=== PATIENT | female | born 1945 | race Caucasian/White ===

== ENCOUNTER 2017-07-09 05:34 | Inpatient (IN) | payer MEDICARE, OTHER ==
[~2017-07-09] VITALS: Ht 157.5 cm; Wt 55.3 kg
[2017-07-09] MEDS ORDERED: PROTONIX40 M1 PO (07:06)
[2017-07-09] MEDS ORDERED: TIROSINT50 MCG PO (07:07)
[2017-07-09] MEDS ORDERED: MOBIC15 MG PO (07:08)
[2017-07-09] MEDS ORDERED: ULTRAM50 MG PO (07:08)
[2017-07-09] MEDS ORDERED: ESTRACE1 MG PO (07:08)
[2017-07-09] MEDS ORDERED: ZESTRIL40 MG PO (07:10)
[2017-07-09] MEDS ORDERED: METOPROLOL SUCC25 MG PO (07:11)
[2017-07-09] MEDS ORDERED: LEVOTHYROXINE75 MCG PO (10:15)
[2017-07-09] MEDS ORDERED: AMLODIPINE BESYL5 MG PO (10:17)
[2017-07-09] MEDS ORDERED: METOPROLOL TART25 MG PO (10:18)
[2017-07-09] MEDS ORDERED: PANTOPRAZOLE SO40 MG PO (10:19)
--- NOTE | 2017-07-09 10:55 | NUR ---
PATIENT TX TO MEDICAL FLOOR IN A STRETCHER, SHE IS ALERT AND ORIENTED AND STEADY ON HER FEET. PATIENT UP TO THE BATHROOM UPON ARRIVAL AND VOIDED IN THE HAT CLEAR YELLOW URINE. NG TUBE CONNECTED TO LIS AND IV FLUID HUNG AT 125 MLS/HR. PATIENT HAS PAIN CURRENTLY AT 10 WHICH SHE IS COMFTORABLE AT.
[2017-07-09] MEDS ORDERED: VITAMIN B-250 MG PO (10:56)
[2017-07-09] MEDS ORDERED: VITAMIN B-121000 MCG PO (10:57)
[2017-07-09] MEDS ORDERED: ESTRACE42.5 GM VAGINAL (10:58)
--- NOTE | 2017-07-09 10:59 | NUR ---
MED REC COMPLETE WITH BIMART REFILL HISTORY AND PATIENT INTERVIEW.
--- NOTE | 2017-07-09 11:11 | NUR ---
VITALS TAKEN AND PATIENT HOB ELEVATED, SCD'S PLACED ON THE PATIENT AND A NEW IV #20 STARTED IN THE RIGHT FOREARM. FAMILY PRESENT IN THE ROOM
--- NOTE | 2017-07-09 12:17 | NUR ---
PATIENT ASLEEP SITTING UP IN THE BED, FAMILY AT BEDSIDE. NO S/S OF PAIN, NG TUBE REMAINS AT LIS.
--- NOTE | 2017-07-09 12:45 | NUR ---
PT RESTING IN BED- AND DAUGHTER IN VISITING. PT HAS SBO, WITH NG TUBE IN. SHE SAID HELLO, AND I ASKED HOW SHE WAS COPING-SHE SAID THE NG IS NOT TOO BAD. SHE SMILED SHE SAID IT, BUT I CAN TELL THE FAMILY IS CONCERNED. EXTENDED A BLESSING, AND WILL CONTINUE TO FOLLOW NEEDED
--- NOTE | 2017-07-09 13:15 | NUR ---
pt assisted to the BR at this time and was a stand by assist. pt voided 300cc. pt sitting up on the side of the bed. lemon glycerin swabs given.
--- NOTE | 2017-07-09 14:00 | NUR ---
pts vitals taken at this time.
--- NOTE | 2017-07-09 14:25 | NUR ---
PATIENT IS RESTING WITH EYES OPEN, NO C/O PAIN AT THIS TIME. PATIENT IS ALERT AND ORIENTED. SHE HAS NO NEEDS AT THIS TIME.
--- NOTE | 2017-07-09 16:13 | NUR ---
PATIENT VISITING WITH FAMILY, NO C/O PAIN, DENIES NEEDS. BROWN BILE DRAINING FROM NG TUBE AT THIS TIME.
--- NOTE | 2017-07-09 19:05 | NUR ---
ROUNDED CHARGE. PATIENT IS RESTING IN BED. PATIENT HAS NG IN PLACE. PATIENT DENIES ANY COMMENTS, QUESTIONS, OR CONCERNS. PATIENT RATES PAIN AT A 2/10. CALL LIGHT IN REACH.
--- NOTE | 2017-07-09 19:16 | NUR ---
IV FLUIDS CHANGED AND RATE DECREASED TO 85 MLS AN HOUR. DOCTOR AUBREE WAS IN TO SEE THE PATIENT AT THIS TIME. FAMILY WAS PRESENT IN THE ROOM.
--- NOTE | 2017-07-09 19:31 | NUR ---
pt hypertenisve blood pressure 169/56, notified, md to reorder benazapril at home dose.
--- NOTE | 2017-07-09 19:33 | NUR ---
RECIEVED REPORT FROM DAY SHIFT NURSE. PATIENT RESTING IN BED. NGT IN PLACE. ICE CHIPS DELIVERED. PATIENT DENIES NEEDS AT THIS TIME. CALL LIGHT IN REACH.
--- NOTE | 2017-07-09 19:55 | NUR ---
SMALL AMOUNT OF BLOOD NOTED IN NGT. CALLED MD TO NOTIFY. OBTAINED ORDER FOR CEPACOL AND CHLORASEPTIC SPRAY.
--- NOTE | 2017-07-09 20:13 | NUR ---
PT C/O LOWER BACK PAIN. STATES SHE WILL BE GETTING SURGERY SOON ON HER BACK. SHE NORAMLLY TAKES TRAMADOL AT HOME FOR PAIN. ADMINISTERED 2MG OF MORPHINE. PT'S BP ELEVATED. STATES SHE DID NOT RECIEVE HER BP MEDS TODAY. CALLED MD TO OBTAIN ORDER. LUNGS CLEAR, HR REGULAR, TRACE ANKLE EDEMA, BS HYPACTIVE. PT STATES SHE IS NOT PASSING FLATUS. LAST TIME SHE HAD A BM AND PASSED FLATUS WAS THIS MORNING. PT UP WITH ASSISTANCE TO VOID. BACK TO BED. SCDS IN PLACE. CALL LIGHT IN REACH.
--- NOTE | 2017-07-09 22:13 | NUR ---
PT UP TO BATHROOM TO VOID WITH ENVIRONMENTAL HEALTH MANAGER. PT REQUESTING MORE PAIN MEDICATION FOR LOWER BACK.
--- NOTE | 2017-07-09 23:31 | NUR ---
PATIENT SLEEPING. NGT TO LOW INT. SUCTION. IVF INFUSING W/O DIFFICULTY. SCDS IN PLACE. CALL LIGHT IN REACH.
--- NOTE | 2017-07-10 00:26 | NUR ---
PATIENT SLEEPING IN BED. NGT IN PLACE ON LOW INT. SUCTION. SCDS IN PLACE. PT SNORING. CALL LYONS IN REACH.
--- NOTE | 2017-07-10 00:47 | NUR ---
SET UP CONT. PULSE OX. PT'S O2 WHILE SLEEPING AT 92% ON RA. VS OBTAINED. PT DENIES FURTHER NEEDS. CALL LIGHT IN REACH.
--- NOTE | 2017-07-10 01:15 | NUR ---
PT UP TO BATHROOM WITH ASSIST. VOIDED, BACK TO BED. NGT HOOKED UP TO LOW INT. SUCTION. SCDS AND CONT. PULSE OX IN PLACE. IVF INFUSING W/O DIFFICUTLY. PT DENIES PAIN IN ABD. STATES HER PAIN IS ABOUT A 2/10 IN HER BACK AND DENIES THE NEED FOR PAIN MEDICATION AT THIS TIME. LUNGS CLEAR, HR REGULAR, BS ACTIVE. PT STATES SHE IS NOT PASSING FLATUS. CALL LIGHT IN REACH.
--- NOTE | 2017-07-10 02:30 | NUR ---
PT SLEEPING. CONT. PULSE OX IN PLACE. O2 SAT AT 93% ON RA. SCDS IN PLACE. CALL LIGHT IN REACH.
--- NOTE | 2017-07-10 04:07 | NUR ---
PATIENT SLEEPING. NGT IN PLACE. CALL LIGHT IN REACH.
--- NOTE | 2017-07-10 04:31 | NUR ---
ASSISTED PT TO BATHROOM TO VOID. BACK TO BED. PATIENT REQUESTING FOR PAIN MEDICATION FOR HER LOWER BACK. RATES HER PAIN 4/10. PT SITTING AT A DANGLE ON THE SIDE OF THE BED. PT DENIES FURTHER NEEDS. CALL LIGHT IN REACH.
--- NOTE | 2017-07-10 05:28 | NUR ---
PATIENT SLEEPING. CALL LIGHT IN REACH.
--- NOTE | 2017-07-10 05:42 | NUR ---
NGT TO LOW INT. SUCTION. SMALL AMOUNT OF BLOOD IN NG TUBING. NOTIFIED LAST NIGHT. MORPHINE 2MG GIVEN X3 FOR LOWER BACK PAIN. NO PAIN IN ABD. BS ACTIVE, NO FLATUS. LAST BM YESTERDAY. SBA. BP SLIGHTLY ELEVATED LAST NIGHT. PT DID NOT TAKE BP MEDS YESTERDAY.
--- NOTE | 2017-07-10 06:35 | NUR ---
XRAY IN ROOM.
--- NOTE | 2017-07-10 07:57 | NUR ---
PATIENT DID HER AM CARE THIS MORNING. REFUSED HER SHOWER THIS MORNING.
--- NOTE | 2017-07-10 07:57 | NUR ---
discharge planning in room. assessment complete. patient given fresh ice water. active bs. patient reports not passing any flatus at this time. small amount of edema noted in lower legs. scds are on. is at bedside patient able to demenstrate. iv wnl.
--- NOTE | 2017-07-10 09:06 | NUR ---
patient stating pain in lower back /10. would like some pain medication. 2 mg morphine given. patient assist to br. voiding well.
--- NOTE | 2017-07-10 10:53 | NUR ---
patient ambulated three whole laps around the floor. tolerating very well. no sob or abd pain with activity. patient assisted to the br. back to floor for visit. ng hooked back up. pain currently at 10/17. patient reports during walk being able to pass flatus.
--- NOTE | 2017-07-10 12:33 | NUR ---
rounded with dr. zhou in the room. updated on plan of care. possibly getting ng removed depending on x-ray
--- NOTE | 2017-07-10 12:49 | NUR ---
small bowel follow through study being done in room. updated patient on plan of use ng for the gastrographin 50/50
--- NOTE | 2017-07-10 13:49 | NUR ---
PT UP AND WALKING. EVEN WITH AN NG TUBE IN SHE HAS A SMILE. SHE SEEMED TO BE ENJOYING WALKING. WILL CONTINUE TO FOLLOW
--- NOTE | 2017-07-10 14:14 | NUR ---
patient doing well. resting in bed. plan to be back at 1500 for small bowel follow through.
--- NOTE | 2017-07-10 15:03 | HP ---
[facility] [address], [place] [address] Signed ADMISSION DATE: 07/09/2017 REASON FOR ADMISSION: Recurrent bowel obstruction. HISTORY OF PRESENT ILLNESS: A 71-year-old, white woman is from the [facility], in the past four months, has moved to [place]. She is accompanied by her at this time as well as her son and two granddaughters. In the past, she has undergone hysterectomy as well as cholecystectomy. She has been hospitalized at least twice for small bowel obstruction, which appears to have resolved on its own on both occasions. Yesterday, she began having vague abdominal pain mostly in the lower abdomen and by this morning, quite uncomfortable. She presented to the emergency room where she was evaluated by Dr. Stanley Purcell and a plain abdominal x-ray was performed suggestive of small bowel obstruction, followed by a CT scan of the abdomen confirming a bowel obstruction with transition point probably in the deep pelvis. She has been admitted, given fluid resuscitation and so on. PAST MEDICAL HISTORY: Relatively unremarkable. She does not have any serious ongoing chronic medical problems. MEDICATIONS: Review of her medications shows that she does have hypertension, for which she takes amlodipine. Additionally, takes Estrace cream, Estrace orally, and Synthroid as well as lisinopril. She also takes pantoprazole. She does take multiple vitamin supplements as well. She identifies Dr. Christiano Urbano as her primary physician now that she is in [facility]. REVIEW OF SYSTEMS: She denies any shortness of breath or chest pain. She has had no dysphagia or dysuria. Denies any hematemesis or blood per rectum. PHYSICAL EXAMINATION: GENERAL: A pleasant, thin, and petite white woman. She is accompanied by multiple family members as described. HEENT: Nasogastric tube was adjusted as it appeared to be riding high in the nostril. NECK: Trachea is midline. She has no carotid bruit. CHEST: Clear. Electronically Signed By: MEMO MAK MD 07/10/17 1503 PATIENT NAME: JAMES GENTILE HISTORY AND PHYSICAL DATE OF : 43 PHYSICIAN: MEMO MAK MD REPORT #: [id number] REPORT IS CONFIDENTIAL AND NOT TO BE RELEASED WITHOUT AUTHORIZATION [facility] [address] [place] [id number] Signed HEART: Regular without murmur. ABDOMEN: Mildly distended, not tender in the slightest. There is no ascites. There is no mass. EXTREMITIES: No clubbing, cyanosis, or edema. LABORATORY STUDIES: Lab studies at time of admission showed a white count elevated to 15.7, hematocrit 39.9, and platelets 308,000. Chem profile was essentially normal. Creatinine 0.87. Liver enzymes are normal. Lipase normal at 29. Glucose elevated at 133. Urinalysis was normal except for urine white cells of 15 per high-power field and red cells 5 per high-power field. Imaging studies include a chest x-ray, which showed good placement of the nasogastric tube, no lesion. Abdominal x-ray confirming a few air-fluid levels in the central abdomen without free air otherwise and CT scan of the pelvis showing multiple loops of moderately dilated air-fluid small intestinal loops with transition point in the lower presacral space. Additionally, a 9 mm density is noted on the first image of the study in the right lower lobe and not diagnostic of neoplasm, but with recommendation for CT scan in the future if possible. She did have some perisplenic ascites, but no drainable fluid collection. Evidence of cholecystectomy in the past was noted as well. ASSESSMENT: The patient has small bowel obstruction from both clinical and radiographic criteria. She has had at least two episodes before. Most likely scar tissue from her hysterectomy has caused adhesions with obstruction. Decompression with IV fluid resuscitation and so forth at this time is certainly well supported. If she does not have prompt recovery, then remedy of the obstruction, which is likely same source from the past, would be appropriate. We discussed this in detail. In the meantime, we will prophylax for ulcer and deep venous thrombosis, and allow liquids for comfort despite her nasogastric tube in place. A KUB will be obtained in the morning. Memo Mak MD Electronically Signed By: MEMO MAK MD 07/10/17 1503 PATIENT NAME: JAMES GENTILE HISTORY AND PHYSICAL DATE OF : 43 PHYSICIAN: MEMO MAK MD REPORT #: [id number] REPORT IS CONFIDENTIAL AND NOT TO BE RELEASED WITHOUT AUTHORIZATION [facility] [address] [place] [address] Signed /ANDREWL /[id number] cc: Dr. Jazzy Urbano Electronically Signed By: MEMO MAK MD 07/10/17 1503 PATIENT NAME: JAMES GENTILE FAMILIA HISTORY AND PHYSICAL DATE OF : 43 PHYSICIAN: MEMO MAK MD REPORT #: [id number] REPORT IS CONFIDENTIAL AND NOT TO BE RELEASED WITHOUT AUTHORIZATION
--- NOTE | 2017-07-10 15:30 | NUR ---
ambulating in [place]. patient had 3 loose stools. cleaned up in br.
--- NOTE | 2017-07-10 16:12 | NUR ---
GAVE PATIENT A SHOWER.
--- NOTE | 2017-07-10 16:37 | NUR ---
PATIENT ASSISTED TO THE BR MULTIBLE TIMES. HAVING LOOSE STOOL. PATIENT STEADY ON FEET AND ASSISTING SELF TO BR AND BSC ( BROUGHT TO ROOM) FAMILY AT BEDSIDE. NEW ORDER TO ADVANCE DIET AND D/C NG TUBE.
--- NOTE | 2017-07-10 16:49 | NUR ---
PATIENT HAVING MORE LOOSE STOOLS. ASSISTING PATIENT IN THE BR
--- NOTE | 2017-07-10 17:05 | NUR ---
D/C'D NG TUBE. PATIENT CONT TO HAVE LOOSE STOOLS. SET UP AT EDGE OF BED WITH BSC NEXT TO PATIENT.
--- NOTE | 2017-07-10 17:07 | NUR ---
PATIENTS NG D/C'D THIS AFTERNOON. IND IN ROOM TO BSC. HAVING MULTIPLE LOOSE STOOLS AFTER SMALL BOWEL FOLLOW THROUGH. ADVANCED TO CLEAR LIQUID DIET. TAKING FLUIDS WELL. SCDS.
--- NOTE | 2017-07-10 17:41 | NUR ---
PATIENT INCONTINENT OF STOOL. CHANGED GOWN, HAD FLOOR MOPPED, CHANGED DEPEND, CHANGED SOCKS, AND CLEANED UP BATHROOM. GOT PATIENT BACK TO BED. DOING WELL NOW. DOES NOT NEED ANYTHING ELSE AT THIS TIME.
--- NOTE | 2017-07-10 17:50 | NUR ---
pts vitals taken at this time.
--- NOTE | 2017-07-10 17:52 | NUR ---
patient continues to have loose incont stool. patient assisted in the br to clean up.
--- NOTE | 2017-07-10 18:17 | NUR ---
pt resting in bed. tolerating a clear liquid diet at this time. instructed to go slow.
--- NOTE | 2017-07-10 19:23 | NUR ---
RECIEVED REPORT FROM DAY SHIFT NURSE. PT UP TO BATHROOM INDEPENDENTLY. DENIES NEEDS AT THIS TIME. CALL LIGHT IN REACH.
--- NOTE | 2017-07-10 20:00 | NUR ---
PATIENT UP TO BATHROOM WITH ASSISTANCE. LUNGS CLEAR, HR REG, HYPERACTIVE BS. NO C/O PAIN. EXTRA BRIEFS PROVIDED. PATIENT CONTINENT AND INCONTINENT OF STOOL. DENIES FURTHER NEEDS. CALL LIGHT IN REACH.
--- NOTE | 2017-07-10 22:30 | NUR ---
PATIENT RESTING IN BED. DIRECTOR OF COLLECTIONS AND ARCHIVES ASSISTED PT TO BATHROOM. PT DENIES NEEDS AT THIS TIME. CALL LIGHT IN REACH.
--- NOTE | 2017-07-10 23:48 | NUR ---
PT UP TO BATHROOM WITH MUSEUM EDUCATOR. DENIES FURTHER NEEDS. NO C/O PAIN. CALL LIGHT IN REACH.
--- NOTE | 2017-07-11 01:06 | NUR ---
PT SLEEPING ON L SIDE. REPOSITIONS INDEPENDENTLY. IVF INFUSING W/O DIFFICULTY. CALL LIGHT IN REACH.
--- NOTE | 2017-07-11 03:42 | NUR ---
CYBER INTEL PLANNER ASSISTED PT TO BATHROOM.
--- NOTE | 2017-07-11 04:33 | NUR ---
PT RESTING IN BED. STATES SHE THINKS SHE HAS A UTI. PT STATES SHE HAS BEEN UP TO THE BATHROOM EVERY HOUR. LUNGS CLEAR, HR REGULAR, ACTIVE BS. NO C/O PAIN. PT HAS BEEN HAVING VERY SMALL LIQUID BMS WITH EACH VOID. PT STATES HER BMS HAVE SLOWED DOWN SINCE YESTERDAY. IVF INFUSING W/O DIFFICULTY. PT DENIES NEEDS. REMOVED SCDS, ENCOURAGED ANKLE PUMPS. CALL LIGHT IN REACH.
--- NOTE | 2017-07-11 05:56 | NUR ---
ASSISTED PT TO SHOWER. SHOWERED INDEPENDENTLY. CALL LIGHT IN REACH.
--- NOTE | 2017-07-11 06:16 | NUR ---
APPLIED NITROPASTE FOR ELEVATED BP. ASSISTED PT TO BATHROOM. PT VOIDED AND HAD SMALL LIQUID BM. DENIES FURTHER NEEDS. CALL LIGHT IN REACH.
--- NOTE | 2017-07-11 06:17 | NUR ---
PATIENT BELIEVES SHE HAS A UTI. SHE HAS A HISTORY OF RECURRENT UTIS AND STATES SHE KNOWS WHEN SHE HAS ONE. PT WAS UP FREQUENTLY LAST NIGHT TO VOID. STATES SHE HAD A SMALL LIQUID BM WITH ALMOST EVERY VOID. BP ELEVATED THIS MORNING. NITROPASTE APPLIED. PT SHOWERED THIS MORNING. NO C/O PAIN.
--- NOTE | 2017-07-11 07:07 | NUR ---
APPLIED ANOTHER 1 INCH OF NITROPASTE. BP STILL ELEVATED.
--- NOTE | 2017-07-11 07:57 | NUR ---
PT AWAKE IN BED. TOOK TO THE BATHROOM. PICKED UP ROOM. EMPTYED GARBAGE.
--- NOTE | 2017-07-11 08:48 | NUR ---
PT LYING IN BED RESTING QUIETLY. NO COMPLAINTS. FREQUENTLY UP TO BATHROOM. POSSIBLE SUSPECTED UTI PER PATIENT REPORT. WHITE FILAMENT IN URINE REPORTED BY AID.
--- NOTE | 2017-07-11 08:59 | NUR ---
PT STATED SHE THINKS SHE HAS A UTI. LET NURSE LEOBARDO KNOW. ALSO SHE HAD SOME YELLOW SKIN LIKE PICES IN HER URIAN.
--- NOTE | 2017-07-11 10:34 | NUR ---
DR MAK IN TO SEE PATIENT. INFORMED OF LIKELY UTI. VS TAKEN AGAIN. BP SLIGHTLY ELEVATED. WILL LIKELY RESTART BP MEDS WHEN DISCHARGED HOME TODAY.
[2017-07-11] MEDS ORDERED: BACTRIM DS TAB1 EACH PO (10:40)
--- NOTE | 2017-07-11 11:21 | NUR ---
IVs REMOVED. PT READY TO DISCHARGE. WAITING FOR PHARMACIST TO COMPLETE EDUCATION ON NEW ANTIBIOTIC BEFORE SENDING HOME.
--- NOTE | 2017-07-14 11:14 | DS ---
[facility] [address], [place] [address] Signed ADMISSION DATE: 07/09/2017 DISCHARGE DATE: 07/11/2017 REASON FOR ADMISSION: This 71-year-old white woman is from a [facility], new in the past four months, having moved to [place], [place]. She is accompanied by her at time of her admission and is a patient of Dr. Sundeep marino. The day prior to admission, she began having vague abdominal pain, mostly in the lower abdomen, presented to the emergency room. She was evaluated by Dr. Stanley Purcell. A plain abdominal x-ray and subsequent CT scan were performed confirming a relatively high-grade small bowel obstruction with transition point in the deep pelvis. The patient has had at least two small bowel obstructions in the past, treated elsewhere conservatively. Her past surgical history includes hysterectomy as well as cholecystectomy. She is admitted for further evaluation and care. PERTINENT PHYSICAL EXAMINATION: GENERAL: A pleasant and petite white woman, accompanied by multiple family members. HEENT: Nasogastric tube was in place draining clear bilious fluid. Trachea is midline. CHEST: Clear. HEART: Regular without murmur. ABDOMEN: Mildly distended, but not tender. There is no ascites. There is no mass. LABORATORY STUDIES: Showed a white count of 15.7, hematocrit 39.9, platelets 308,000. Chem profile normal. Creatinine 0.87. Urinalysis slightly abnormal with white cells of 15 per high-power field and 5 red cells per high-power field. HOSPITAL COURSE: The patient was admitted with nasogastric tube decompression and immediately felt quite a bit better. Review of her CT scan and plain x-rays and so forth confirmed the probability of adhesion-related small bowel obstruction deep in the pelvis. She was managed with fluids allowing oral intake of fluids for comfort, but decompression with nasogastric tube. By the following day, she was much improved. Plain abdominal x-ray showed near resolution of air within the small bowel. On the basis of her prior surgery in the high probability, this represented an adhesion related to bowel obstruction (recurrent), a Electronically Signed By: MEMO MAK MD 07/14/17 1114 PATIENT NAME: JAMES GENTILE DISCHARGE SUMMARY DATE OF : 43 PHYSICIAN: MEMO MAK MD REPORT #: [id number] REPORT IS CONFIDENTIAL AND NOT TO BE RELEASED WITHOUT AUTHORIZATION [facility] [address] [place] [id number] Signed small-bowel follow-through with a 50:50 mixture of barium and Gastrografin was administered. This showed complete clearance of the small bowel obstruction and she had numerous bowel movements following that. She was advanced in her diet from liquids to a regular diet and by day of discharge is doing quite well. As regards to urinary tract infection, she has had recurrent infections in the past. She denies any pneumaturia or anything to suggest a colovesical fistula or other surgical cause of recurrent urinary tract infections. She will be started on Bactrim DS 1 p.o. b.i.d. for 10 days. It is noted that her primary physician, Dr. Urbano notes her to have a tendency to recurrent urinary tract infections and has a standing order for urinary evaluation at the lab. She will be discharged to home to follow up with Dr. Urbano as needed and I am happy to see her of course should she have issues related to her bowel obstruction or bowel problems in the future. DISCHARGE MEDICATIONS: Include: 1. Bactrim DS 1 tablet p.o. b.i.d. x10 days. 2. Meloxicam (Mobic) 15 mg p.o. daily. 3. Estrace 1 mg tablet p.o. daily. 4. Tramadol 2 tabs p.o. b.i.d. as needed for pain. 5. Zestril. 6. Lisinopril 40 mg p.o. daily. 7. Synthroid 75 mcg p.o. daily. 8. Amlodipine 5 mg p.o. daily. 9. Pantoprazole 40 mg p.o. daily. 10. Riboflavin (B2) 50 mg 2 tabs p.o. daily. 11. Vitamin B12 two tabs p.o. daily. 12. Estrace cream applied vaginally as needed. DISCHARGE DIAGNOSES: 1. Recurrent small bowel obstruction, resolved with conservative management. 2. Probable low-grade subclinical urinary tract infection. 3. History of hypertension. 4. Gastroesophageal reflux symptoms. 5. Hypertension. Electronically Signed By: MEMO MAK MD 07/14/17 1114 PATIENT NAME: JAMES GENTILE DISCHARGE SUMMARY DATE OF : 43 PHYSICIAN: MEMO MAK MD REPORT #: [id number] REPORT IS CONFIDENTIAL AND NOT TO BE RELEASED WITHOUT AUTHORIZATION [facility] [address] [place] [id number] Signed Memo Mak MD JM/MODL /[id number] cc: MD Stanley Hdz, Electronically Signed By: MEMO MAK MD 07/14/17 1114 PATIENT NAME: JAMES GENTILE FAMILIA DISCHARGE SUMMARY DATE OF : 43 PHYSICIAN: MEMO MAK MD REPORT #: [id number] REPORT IS CONFIDENTIAL AND NOT TO BE RELEASED WITHOUT AUTHORIZATION
== END 2017-07-11 11:40 | disposition home or self-care (01) | DRG 389 ==
LOC: ED 05:34 → MS 10:05
PROVIDERS: ADMIT Surgery
DX: K56.609 Unspecified intestinal obstruction, unspecified as to partial versus complete obstruction (principal); N39.0 Urinary tract infection, site not specified; I10 Essential (primary) hypertension; K21.9 Gastro-esophageal reflux disease without esophagitis
CPT/HCPCS: 36415; 71010; 74000; 74020; 74177; 74250; 80053; 81001; 83690; 85025; 94762; J1170; J2270; J2405; J7030; J7120; Q9967

== ENCOUNTER 2018-03-02 12:44 | Day surgery (SDC) | payer MEDICARE, OTHER ==
[~2018-03-02] VITALS: Ht 157.5 cm; Wt 55.8 kg
--- NOTE | ~2018-03-02 | OR ---
[facility] [address], [place] [address] Draft DATE OF OPERATION: 03/02/2018 SURGEON: Memo Mak MD PREOPERATIVE DIAGNOSES: 1. Cervical dysphagia. 2. Known hiatal hernia and reflux. POSTOPERATIVE DIAGNOSES: No evidence of proximal, middle, or distal esophageal stricture, poor flap valve, and normal stomach and duodenum. PROCEDURE: Esophagogastroduodenoscopy with biopsy. ANESTHESIA: Intravenous sedation, fentanyl 100 mcg, Versed 2.5 mg. INDICATION: This 72-year-old white woman is a patient of Farideh Todd PA-C, and known to me from the past. She was hospitalized in June of 2017 with small bowel obstruction, which resolved with conservative measures. She has recently been complaining of episodic dysphagia of the cervical esophagus. This is not associated with meat or bread necessarily. She has had episodes of he crackers being somewhat obstructed and so on. She is known to have reflux disease and hiatal hernia for which she takes pantoprazole (Protonix). She has never had upper endoscopy. Her symptoms does not occur with every meal, but more frequent and possibly a few times a week. With Protonix, which she has been taking, she seems to have improvement. She has no family history of esophageal or stomach cancer. She is admitted at this time to undergo upper endoscopy to better characterize the problem, assess for stricture, neoplasm, or other abnormality. FINDINGS: There is no sign of esophageal stricture proximally or distally or in the middle of the esophagus. The stomach appeared normal as was the duodenum. There was a poor flap valve consistent with hiatal hernia. CLOtest was negative. DESCRIPTION OF PROCEDURE: The patient was brought to the endoscopy suite and given topical Hurricaine spray, hypopharyngeal anesthesia, and placed in lateral decubitus position. She was given PATIENT NAME: JAMES GENTILE OPERATIVE REPORT DATE OF : 43 REPORT #: [id number] PHYSICIAN: MEMO MAK MD PCP: FARIDEH TODD PA-C REPORT IS CONFIDENTIAL AND NOT TO BE RELEASED WITHOUT AUTHORIZATION [facility] [address], [place] [address] Draft intravenous sedation to the point of slurred speech and nystagmus. A bite block was placed. An Olympus video upper endoscope was passed in the hypopharynx. Vocal cords and surrounding soft tissue were normal. The scope was gently passed into the esophagus, which had no impediment particularly, and the scope was advanced down the esophagus into the stomach. The stomach was insufflated with air. Excess gastric juices suctioned free. There was some percolation of bilious fluid through the pylorus into the stomach, this was suctioned free. The scope was then passed through the pylorus into the duodenum, which appeared normal. Biopsies were taken of the duodenum in the second and bulbar portions and withdrawn to the stomach to allow for biopsy of the antrum. Retroflex view of the GE junction showed a hiatal hernia. No sign of proximal gastric abnormality otherwise. The scope was withdrawn to the distal esophagus, where biopsies were obtained of the mucosa. Biopsies of the middle and more proximal esophagus also taken. There was no sign of stricture in the proximal esophagus or elsewhere in the esophagus. Re-evaluation of the vocal cords and so forth showed no sign of neoplastic change, including the area of the base of the tongue. The scope was removed and the patient was taken to recovery in good condition. CONCLUSION DIAGNOSES: 1. Improving cervical dysphagia. 2. Hiatal hernia with clinical reflux. PLAN: Recommend continued use of Protonix daily. She will see us back in about eight weeks. We will review her symptoms at that time. If continued dysphagia is noted, she may require a video esophagram or other intervention. MD DYLAN Fan/ANDREWL /[id number] cc: Farideh oTdd PA-C Copies: FARIDEH TODD PA-C PATIENT NAME: JAMES GENTILE OPERATIVE REPORT DATE OF : 43 REPORT #: [id number] PHYSICIAN: MEMO MAK MD PCP: FARIEDH TODD PA-C REPORT IS CONFIDENTIAL AND NOT TO BE RELEASED WITHOUT AUTHORIZATION [facility] [address] [place] [id number] Draft ~ PATIENT NAME: JAMES GENTILE OPERATIVE REPORT DATE OF : 43 REPORT #: [id number] PHYSICIAN: MEMO MAK MD PCP: FARIDEH TODD PA-C REPORT IS CONFIDENTIAL AND NOT TO BE RELEASED WITHOUT AUTHORIZATION
[~2018-03-02 12:44] MED LIST: AMLODIPINE BESYL5 MG PO; BACTRIM DS TAB1 EACH PO; ESTRACE1 MG PO; ESTRACE42.5 GM VAGINAL; LEVOTHYROXINE75 MCG PO; METOPROLOL SUCC25 MG PO; METOPROLOL TART25 MG PO; MOBIC15 MG PO; PANTOPRAZOLE SO40 MG PO; PROTONIX40 M1 PO; TIROSINT50 MCG PO; ULTRAM50 MG PO; VITAMIN B-121000 MCG PO; VITAMIN B-250 MG PO; ZESTRIL40 MG PO
--- NOTE | 2018-03-02 14:18 | NUR ---
03/02/18 Lian8 Radha Escamilla 1408 PT ARRIVED TO [facility] ON 3L VIA NC, RESP EVEN AND UNLABORED. 1414 PT WOKE TO VERBAL STIMULI AND WAS REORIENTED TO PACU. O2 REMOVED. AND PT SAT UP IN HIGH FOLWERSM TAKING CORRINE OF WATER.
== END 2018-03-02 14:44 | disposition home or self-care (01) ==
LOC: DS 12:44 → OPS 12:44 → DS 14:00 → OPS 14:00
PROVIDERS: Surgery
PROC: 0DB78ZX Excision of Stomach, Pylorus, Via Natural or Artificial Opening Endoscopic, Diagnostic (ICD-10-PCS; 2018-03-02)
PROC: 0DB18ZX Excision of Upper Esophagus, Via Natural or Artificial Opening Endoscopic, Diagnostic (ICD-10-PCS; 2018-03-02)
PROC: 0DB28ZX Excision of Middle Esophagus, Via Natural or Artificial Opening Endoscopic, Diagnostic (ICD-10-PCS; 2018-03-02)
PROC: 0DB38ZX Excision of Lower Esophagus, Via Natural or Artificial Opening Endoscopic, Diagnostic (ICD-10-PCS; 2018-03-02)
PROC: 0DB98ZX Excision of Duodenum, Via Natural or Artificial Opening Endoscopic, Diagnostic (ICD-10-PCS; principal; 2018-03-02 14:00)
DX: K29.50 Unspecified chronic gastritis without bleeding (principal); K21.0 Gastro-esophageal reflux disease with esophagitis; K59.04 Chronic idiopathic constipation; E03.9 Hypothyroidism, unspecified; I10 Essential (primary) hypertension
CPT/HCPCS: G0500; J2250; J3010; J7120

== ENCOUNTER 2018-04-20 03:45 | Emergency (ER) | payer MEDICARE, OTHER ==
[~2018-04-20] VITALS: Ht 157.5 cm; Wt 55.8 kg
[2018-04-20] MEDS ORDERED: KEFLEX500 MG PO (05:04)
== END 2018-04-20 06:35 | disposition home or self-care (01) ==
LOC: ED 03:45
DX: R10.13 Epigastric pain (principal); I10 Essential (primary) hypertension; Z79.899 Other long term (current) drug therapy
CPT/HCPCS: 74177; 80053; 81001; 83690; 85025; 96374; 96375; 99284; J1170; J2405; J7030; Q9967

== ENCOUNTER 2018-05-14 07:04 | Day surgery (SDC) | payer MEDICARE, OTHER ==
[~2018-05-14 07:04] MED LIST changes: +KEFLEX500 MG PO
--- NOTE | 2018-05-15 09:08 | OR ---
[facility] [address], [place] [address] Signed DATE OF OPERATION: 05/14/2018 SURGEON: Memo Mak MD PREOPERATIVE DIAGNOSES: 1. Constipation. 2. Last colonoscopy greater than 10 years ago. POSTOPERATIVE DIAGNOSIS: Sigmoid diverticulosis, otherwise normal. PROCEDURE PERFORMED: Total colonoscopy to cecum. ANESTHESIA: Intravenous sedation of fentanyl 100 mcg and Versed 3 mg. INDICATION: A 72-year-old white woman who is a patient of Farideh Todd. She has complaints of constipation. Last colonoscopy was greater than 10 years ago. She has had no blood per rectum. She is admitted at this time to undergo colonoscopy to better characterize her problem, understand the risks of bleeding, infection, perforation. FINDINGS: The prep was quite excellent. Complete colonoscopy was undertaken to the cecum without question. She had numerous diverticula of the sigmoid colon. There were no findings of polyps, colitis, or other issue. DESCRIPTION OF PROCEDURE: The patient was brought to the endoscopy suite and placed in lateral decubitus position given intravenous sedation to the point of slurred speech and nystagmus. Digital rectal examination was normal. An Olympus video colonoscope was passed in the rectum and manipulated throughout the colon ultimately intubating the cecum itself. Numerous diverticula were seen in the sigmoid and left colon. The ileocecal valve was well identified as was the appendiceal orifice. The scope was withdrawn from that point and examination throughout showed no sign of abnormality until the left colon where diverticula were once again seen. Numerous such diverticula were noted with some anatomical distortion, but no sign of stricture. The rectum was normal except for some minimal internal hemorrhoidal change. The scope was removed. The Electronically Signed By: MEMO MAK MD 05/15/18 0908 PATIENT NAME: JAMES GENTILE OPERATIVE REPORT DATE OF : 43 REPORT #: [id number] PHYSICIAN: MEMO MAK MD PCP: FARIDEH TODD PA-C REPORT IS CONFIDENTIAL AND NOT TO BE RELEASED WITHOUT AUTHORIZATION [facility] [address] [place] [place] [address] [place] [address] Signed patient was taken to the recovery room in good condition clean. DIAGNOSIS: Constipation related to diverticulosis. PLAN: Recommend high-fiber diet and/or Citrucel 1 tablespoon p.o. daily. She will return to the ongoing care of BRITT Castro. MD DYLAN Fan/MAXIMILIANO /[id number] cc: Farideh Todd PA-C Copies: FARIDEH TODD PA-C ~ Electronically Signed By: MEMO MAK MD 05/15/18 0908 PATIENT NAME: JAMES GENTILE OPERATIVE REPORT DATE OF : 43 REPORT #: [id number] PHYSICIAN: MEMO MAK MD PCP: FARIDEH TODD PA-C REPORT IS CONFIDENTIAL AND NOT TO BE RELEASED WITHOUT AUTHORIZATION
== END 2018-05-14 09:24 | disposition home or self-care (01) ==
LOC: DS 07:04 → OPS 07:04 → DS 09:00 → OPS 09:24
PROVIDERS: Surgery
PROC: 0DJD8ZZ Inspection of Lower Intestinal Tract, Via Natural or Artificial Opening Endoscopic (ICD-10-PCS; principal; 2018-05-14 08:15)
DX: K64.8 Other hemorrhoids (principal); K57.30 Diverticulosis of large intestine without perforation or abscess without bleeding; K59.04 Chronic idiopathic constipation; K21.0 Gastro-esophageal reflux disease with esophagitis; E03.9 Hypothyroidism, unspecified; I10 Essential (primary) hypertension; Z88.1 Allergy status to other antibiotic agents
CPT/HCPCS: 99153; G0500; J2250; J3010; J7120

== ENCOUNTER 2018-09-25 02:06 | Inpatient (IN) | payer MEDICARE, OTHER ==
[~2018-09-25] VITALS: Ht 157.5 cm; Wt 56.0 kg
--- OUTSIDE RECORDS SUMMARY | 2018-09-25 02:08 | XMS ---
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 EAnna VISIT COUNT (12 MO.) 2 JUANIS Ruiz TOTAL 2 NOTE: Visits indicate total known visits. ED/UCC VISIT TRACKING (12 MO.) 09/25/2018 02:06 JUANIS Rousseau OR TYPE: Emergency COMPLAINT: - ABD PAIN 04/20/2018 03:46 JUANIS Rousseau OR TYPE: Emergency COMPLAINT: - ABD PAIN DIAGNOSES: - Other terminal clerk (current) drug therapy - Epigastric pain - Essential (primary) hypertension INPATIENT VISIT TRACKING (12 MO.) No inpatient visits to display in this time frame [email or web address]
--- NOTE | 2018-09-25 06:58 | NUR ---
PT ARRIVED TO UNIT FROM ED VIA STRETCHER. PT A&O X4 AND RESPONDING APPROPRIATELY. DENIES PAIN. DENIES N/T IN EXTREMITIES. RHYTHM REGULAR. LUNGS CLEAR THROUGHOUT, ON ROOM AIR. BOWEL TONES HYPOACTIVE X4, DENIES NAUSEA, NG TUBE IN PLACE DRAINING LIGHT GREEN DRAINAGE. PT UP TO VOID. SKIN INTACT. RAC IV SITE PATENT, WNL, NS INFUSING AT 125 ML/HR. ORIENTED TO ROOM. DENIES OTHER NEEDS. CALL LIGHT WITHIN REACH.
--- NOTE | 2018-09-25 07:40 | NUR ---
UP TO BR TO VOID. DENIES NEED FOR PAIN MEDICATION. DENEIS DIZZINES WITH AMBULATION, DENEIS NAUSEA. NG TO SUCTION. NO OUTPUT NOTED FOR NG. TALKED WITH PATIENT ABOUT PLAN OF CARE FOR DAY, PATIENT IS UNDERSTANDING. WARM BLANKET GIVEN. PATIENT W/O FUTHER REQUESTS. WISH TO SLEEP. CALL LIGHT WITHIN REACH.
--- NOTE | 2018-09-25 09:30 | NUR ---
DR. JACKSON HERE TO SEE PATIENT. ORDERS REDIEVED.
--- NOTE | 2018-09-25 11:27 | CONS ---
[facility] [address], [place] [address] Signed DATE OF CONSULTATION: 09/25/2018 CHIEF COMPLAINT: Generalized crampy abdominal pain with distention and nausea. HISTORY OF PRESENT ILLNESS: Sintia is a 73-year-old female who is generally quite healthy and at her ideal body weight. She has had three prior admissions for small bowel obstructions over multiple years. She had a previous laparoscopic hysterectomy with removal of the right ovary. The left ovary remains in place. Each time, she gets treated conservatively and it has gotten better. She has been discharged to home. She was last admitted in July 2018. She developed recurrent abdominal distention, nausea, and crampy pain, so she realized that was her small bowel obstruction. She came to our local emergency room for evaluation. White count was slightly up at 12.7 with some mild tenderness in the lower abdomen. A CT scan confirmed a fluid-filled dilated loops of small bowel in the right lower quadrant. She also had quite a bit of fluid in her stomach. NG tube was placed for decompression of the stomach confirmed on both chest x-ray. I was asked to admit her as a general surgeon on-call for her small bowel obstruction. In the meantime, she has done well overnight. PAST MEDICAL HISTORY: Hypertension, urinary tract infections, osteoarthritis, and hypothyroidism. 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 Laparoscopic hysterectomy with right salpingo-oophorectomy with the left ovary remaining in place. She has had a bladder sling and vaginal wall repair. SOCIAL HISTORY: She does not smoke or drink. She is and her has early Lewy body dementia. 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 She continues to drive. She has three sons, two of which are in [place] and I think one is here in [place]. Yoko López is her urologist and Farideh Todd is her primary care provider. They prefer the [facility]. Her is Fidel at [phone]. FAMILY HISTORY: Her mom was a smoker and had lung cancer. Dad was a smoker and of COPD. Brother had lymphoma. REVIEW OF SYSTEMS: She had 10 systems reviewed and there were no new findings. Portions of this report were created using voice recognition software. There may be inadvertent computer error. Please read with context in mind. If there are any questions, please contact me. Electronically Signed By: EZEQUIEL JACKSON MD 09/25/18 1127 PATIENT NAME: SINTIA GENTILE FAMILIA CONSULTATION DATE OF : 43 REPORT #: [id number] PHYSICIAN: EZEQUIEL JACKSON MD PCP: FARIDEH TODD PA-C REPORT IS CONFIDENTIAL AND NOT TO BE RELEASED WITHOUT AUTHORIZATION [address] [address] Signed ALLERGIES: None. MEDICATIONS: Meloxicam, estradiol, tramadol, lisinopril, levothyroxine, amlodipine, Protonix, vitamin B2, and vitamin B12. PHYSICAL EXAMINATION: VITAL SIGNS: Blood pressure is 156/74, heart rate 65, respiratory rate 16, her temperature is 98.3. She is 95% on room air. She is 5 feet 2 inches and 56 kg. GENERAL: Sintia is a 73-year-old female, who is lying supine in her hospital bed. Her NG tube is in place. It looks like mostly clear gastric fluid. She does not appear systemically ill or toxic. She is an excellent historian. LUNGS: Generally clear to auscultation bilaterally. HEART: Regular rate and rhythm with a very quiet 2/6 systolic ejection murmur. She has some mild lower abdominal distention essentially nontender and no peritonitis. Somewhat dull to percussion. LABORATORY DATA: Her white blood cell count is 12.7, neutrophils 84, hemoglobin is 12. BUN 28, creatinine 1.02. Urinalysis negative. Liver function tests are negative. Her albumin is 3.9. Her lipase is 20. RADIOGRAPHIC STUDIES: A chest x-ray was performed and the NG tube is in her stomach and her lungs appear clear. Cardiac silhouette is unremarkable. CT scan of abdomen and pelvis is also reviewed and at that time she had a fluid-filled stomach prior to the NG tube. She has decompressed proximal jejunum, but somewhere in the distal jejunum and/or ileum in the right lower quadrant, she has fluid-filled loops of dilated small bowel. There is some edema in the small bowel mesentery with a little bit of free fluid around the small bowel loops. We cannot view the appendix and she told me she thinks she still has the appendix. 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 ASSESSMENT AND PLAN: Sintia is a 73-year-old female who presents with recurrent small bowel obstruction. It generally responds well to decompression. We had a long discussion regarding her current findings and that she may indeed need surgery at some point in time. That would be a lower midline incision in anywhere from 4-7 even 10 days in the hospital depending on the extent of the surgery. At this point, she wants to follow a conservative course. We are going to withhold any antibiotics. We will leave the NG tube in place and she will be n.p.o. We reviewed her labs in the morning in as well as her serial exams. She has expressed understanding and agrees with the above plan. Portions of this report were created using voice recognition software. There may be inadvertent computer error. Please read with context in mind. If there are any questions, please contact me. Electronically Signed By: EZEQUIEL JACKSON MD 09/25/18 1127 PATIENT NAME: SINTIA GENTILE CONSULTATION DATE OF : 43 REPORT #: [id number] PHYSICIAN: EZEQUIEL JACKSON MD PCP: FARIDEH TODD PA-C REPORT IS CONFIDENTIAL AND NOT TO BE RELEASED WITHOUT AUTHORIZATION [address] [address] Signed MD LYLE Ratliff/ANDREWL /[id number] cc: MD Yoko Ratliff MD Chloe K Norris, PA-C Copies: EZEQUIEL JACKSON MD, AIMEE MD NORRIS, CHLOE K PA-C ~ Portions of this report were created using voice recognition software. There may be inadvertent computer error. Please read with context in mind. If there are any questions, please contact me. Electronically Signed By: EZEQUIEL JACKSON MD 09/25/18 1127 PATIENT NAME: SINTIA GENTILE CONSULTATION DATE OF : 43 REPORT #: [id number] PHYSICIAN: EZEQUIEL JACKSON MD PCP: FARIDEH TODD PA-C REPORT IS CONFIDENTIAL AND NOT TO BE RELEASED WITHOUT AUTHORIZATION
--- NOTE | 2018-09-25 11:40 | NUR ---
IN CHAIR. C/O LOWER BACK PAIN. RATES 5/. DENIES ABD DISCOMFORT.
--- NOTE | 2018-09-25 11:54 | NUR ---
DILAUDID 0.5 MG IV GIVEN FOR BACK PAIN.
--- NOTE | 2018-09-25 12:00 | NUR ---
NO CHANGES, HAS BEEN AMBULATING TO BR W/O PROBLEMS. TALKING ABOUT POSSIBILITY OF HAVING SURGERY TOMORROW. DR. KING AWARE OF CONSULT. IVF PATIENT.
--- NOTE | 2018-09-25 16:45 | NUR ---
PT ARRIVED ON FLOOR AT 1615. V/S ARE OVERALL WDL WITH AN ELEVATED BP. ALL LOBES ARE CLEARR, PT IS AAOX4, BOWEL TONES IN RUQ ARE ABSENT, LUQ NG TUBE HEARD, LLQ ABSENT, RLQ ABSENT. PT DID STATE THAT SHE JUST PASSED SOME GAS THOUGH. PT DENIES PAIN AND N/V AT THIS TIME. WILL CONTINUE TO MONITOR. NG TUBE AT L/I/S.
--- NOTE | 2018-09-25 18:12 | NUR ---
PT ARRIVED ON FLOOR FROM CCU AT 1615. SINCE HER ARRIVAL, PT HAS DENIED PAIN,N/V. NG-TUB OUTPUT HAS BEEN MINMAL SO FAR. PT STATED THAT SHE PASSED SOME FLATUS WHILE IN THE BATHROOM. ABD SOUNDS HOWEVER WERE NOT HEARED SO FAR. ALL LOBES ARE CLEAR. NO NEW CONCERNS NOTED SO FAR THIS SHIFT. WILL CONTINUE TO MONITOR.
--- NOTE | 2018-09-25 19:00 | NUR ---
SHIFT REPORT RECEIVED. PATIENT RESTING IN BED. AT BEDSIDE. PATIENT REPORTS FEELING CHILLED. THERMOSTAT IS TURNED ALL THE WAY UP BUT ROOM IS STILL ADJUSTING. ASSURED PATIENT THAT WE COULD KEEP THE DOOR CLOSED TO ALLOW THE ROOM TO STAY WARM POSSIBLE. PATIENT AND HER ARE GOING TO AMBULATE IN THE HALLWAY.
--- NOTE | 2018-09-25 21:15 | NUR ---
PATIENT PROVIDED EVENING MEDS AND PRN PAIN MEDS FOR 8/10 LOWER BACK PAIN. PATIENT DENIES NAUSEA. ABD IS MILDLY DISTENDED, NONTENDER. BOWEL SOUNDS HYPOACTIVE THROUGHOUT. NG CONNECTED TO LIWS, MINIMAL OUTPUT. PATIENT IS AAOX3. LUNGS ARE CLEAR. SKIN IS INTACT. PATIENT AMBULATED TO THE BATHROOM WITH SBA, STEADY ON HER FEET. PATIENT RETURNED TO BED, REVIEWED PLAN OF CARE WITH PATIENT AND ASSURED SHE WAS ORIENTED TO THE ROOM. PERSONAL BELONGINGS IN PLACE.
--- NOTE | 2018-09-25 23:45 | NUR ---
PATIENT APPEARS TO BE SLEEPING SOUNDLY. RR 18. CALL LIGHT IN REACH. NG TUBE TO LIWS. IV FLUIDS PER ORDER, SITE WNL.
--- NOTE | 2018-09-26 02:20 | NUR ---
ASSISTED PATIENT UP TO THE BATHROOM. SHE REPORTS PAIN IN LOWER BACK 8/10, PRN PAIN MEDS PROVIDED. NG TUBE FLUSHED WITH 50MLS, CONNECTED TO LIWS. MINIMAL IF ANY OUTPUT. IV FLUIDS PER ORDER. NO NAUSEA. ABD MILDLY DISTENDED AND BOWEL SOUNDS HYPOACTIVE. VS WNL. URINE OUTPUT QS. SCHEDULED MEDS GIVEN.
--- NOTE | 2018-09-26 06:17 | NUR ---
PATIENT SLEPT ON AND OFF. NG TUBE TO LIWS, MINIMAL OUTPUT THIS SHIFT. NO NAUSEA. BOWEL SOUND HYPOACTIVE. PATIENT AMBULATED IN HALLWAY LAST NIGHT. PRN DILAUDID FOR LOWER BACK PAIN X2. IV FLUIDS PER ORDER. NPO.
--- NOTE | 2018-09-26 07:27 | NUR ---
UP TO BRP, VOIDED 225CC YELLOW URINE. BACK TO BED, TOLERATED WELL. NGT PATENT. NO C/O BACK TO BED
--- NOTE | 2018-09-26 07:59 | NUR ---
PATIENT USED THE RESTROOM, SHE DID HER OWN AM CARE, SHE IS CURRENTLY RESTING, AND WOULD LIKE TO GO ON A WALK A LITTLE LATER
--- NOTE | 2018-09-26 10:20 | NUR ---
PT REPORTING 5/10 LOWER BACK PAIN .0.5 DILAUDID ADMINISTERED AND HEAT PACK PROVIDED. CALL LIGHT IN REACH.
--- NOTE | 2018-09-26 10:37 | NUR ---
RECEIVED REPORT AT 0700, FOUND PT IN BED SLEEPING.
--- NOTE | 2018-09-26 10:38 | NUR ---
SMALL BOWEL STUDY WAS STARTED AT 0950. LAST IMAGE TO BE TAKEN AT 1350. ALL LOBES ARE CLEAR, LLQ AND RLQ NO BOWEL SOUNDS WERE HEARD, PT DENIES N/V AND ABD PAIN AT THIS TIME. ALL LOBES ARE CLEAR. +1 BILATERAL LOWER LEG EDEMA NOTED. PT IS FREQUENTLY AMBUALTING HALLWAY. SBP ELEVATED AT160.
--- NOTE | 2018-09-26 12:00 | NUR ---
PT AT THIS TIME IS UP A LOT TO THE BATHROOM HAVING MULTIPLE BM'S. ABD SOUNDS ARE PRESSENT AT THIS TIME IN ALL QUADS.
--- NOTE | 2018-09-26 13:32 | NUR ---
SPOKE WITH BUNNY IN IMAGING IN REGARDS TO SMALL BOWEL FOLLOW THROUGH IMAGES, BUNNY SAID HE IS FOLLOWING RADIOLOGY PROTOCAL TO RE-IMAGE IN 4 HOURS FROM INITIAL IMAGE.
--- NOTE | 2018-09-26 16:00 | NUR ---
CALLED MD JACKSON ABOUT SB FOLLOW THROUGH RESULTS AND RECEIVED ORDERS A FEW MINUTES LATER TO D/C HER NG TUBE. NG TUBE WAS D/C AT 1500. PT NOW IS ALSO ON FULL LIQUID DIET. OVERALL PT IS DOING WELL. NO NEW CONCERNS NOTED AT THIS TIME. PT IS AMBULATING FREQUENTLY IN HALLWAY.
--- NOTE | 2018-09-26 16:50 | EKG ---
[facility] [address] [facility] [place], [place] [address] Signed Normal sinus rhythm Normal ECG No previous ECGs available Confirmed by JAMES KING DO ([id number]) on 09/26/2018 4:50:11 PM Electronically Signed By: JAMES KING DO 09/26/18 1650 PATIENT NAME: JAMES GENTILE FAMILIA Electrocardiogram DATE OF : 43 PHYSICIAN: JAMES KING DO REPORT #: [id number] REPORT IS CONFIDENTIAL AND NOT TO BE RELEASED WITHOUT AUTHORIZATION
--- NOTE | 2018-09-26 17:21 | NUR ---
SMALL BOWEL STUDY WAS DONE. RECEIVED ORDERS FROM MD JACKSON TO D/C NG TUBE AND FULL LIQUID DIET AFTER RESULTS WERE REVIEWED BY HIM. PT DENIES PAIN AND NAUSEA. PT HAS BEEN HAVING FREQUENT BM'S SINCE PO GRAFTIN WAS INSERTED FOR THE SMALL BOWEL STUDY. BP'S ARE ELEVATED IN THE 160'S. PT AMBULATES VERY FREQUENTLY IN THE HALLWAY. PT OVERALL IS DOING WELL OVERALL. NO NEW CONCERNS NOTED AT THIS TIME.
--- NOTE | 2018-09-26 19:00 | NUR ---
SHIFT REPORT RECEIVED. PATIENT UP TO THE BATHROOM. SBA. DENIES PAIN OR NAUSEA. IV FLUIDS PER ORDER. PATIENT AGREES TO CALL WHEN SHE IS DONE IN THE BATHROOM.
--- NOTE | 2018-09-26 19:00 | NUR ---
CHARGE NURSE REPORT RECEIVED FROM ANDREWS BARTON. PT IN BED, WATCHING TV.
--- NOTE | 2018-09-26 20:30 | NUR ---
PATIENT IS RESTING IN BED. DISCUSSED PAIN MANAGEMENT OPTIONS WITH HER FOR HER CHRONIC BACK PAIN. SPOKE TO DR. JACKSON AND HE AGREES PATIENT CAN TAKE HER HOME DOSE OF TORADOL PRN FOR PAIN. REVIEWED THE ORDER VIEW REPEAT BACK METHOD. PATIENT TOLERATING FULL LIQUIDS IN SMALL AMOUNTS, NO NAUSEA. IV FLUIDS PER ORDER, SITE WNL. BOWEL SOUNDS ACTIVE THROUGHOUT. MINIMAL EDEMA NOTED IN JAIME LOWER EXTREMITIES. PATIENT GOING TO AMBULATE IN HALLWAY WITH SOY JIN.
--- NOTE | 2018-09-26 22:00 | NUR ---
ACID PATROLLERANDREWS ROGER PROVIDED PATIENT WITH PRN TORADOL FOR BACK PAIN PER PATIENT REQUEST
--- NOTE | 2018-09-26 22:57 | NUR ---
V/S AND I&O DONE AND CHARTED. ACCOMPANIED PATIENT WALKED AROUND THE HALLWAY X1. PATIENT IS BACK IN BED. CALL LIGHT AND SIDE TABLE WITHIN REACH.
--- NOTE | 2018-09-27 02:00 | NUR ---
SCHEDULED MEDS GIVEN. PATIENT UP TO THE BATHROOM. REPORTS GOOD PAIN CONTROL. AMBULATES WITHOUT ASSISTANCE. IV FLUIDS PER ORDER. NO NAUSEA. NO FURTHER NEEDS AT THIS TIME.
--- NOTE | 2018-09-27 04:00 | NUR ---
PATIENT RESTING IN BED, WAKES EASILY TO VOICE. DENIES PAIN OR NAUSEA. NO TOILETING NEEDS AT THIS TIME. CALL LIGHT IN REACH.
--- NOTE | 2018-09-27 06:46 | NUR ---
PATIENT SLEPT WELL. PRN PAIN MEDS FOR CHRONIC BACK PAIN. NO NAUSEA. TOLERATING FULL LIQUID. IV FLUIDS PER ORDER. OUTPUT QS. VS STABLE. SBA. PATIENT AMBULATED IN HALLWAYS X1.
--- NOTE | 2018-09-27 07:42 | NUR ---
REPORT RECEIVED FROM ANDREWS BARKSDALE. PT SITTING UP IN BED. STATES SHE SLEPT OK. IS LOOKING FORWARD TO GOING HOME. ADVANCED TO FULL LIQ SOFT FOOD DIET.
--- NOTE | 2018-09-27 07:50 | NUR ---
PT DECLINED SHOWER. STATED THAT SHE WOULD TAKE ONE WHEN SHE IS HOME.
--- NOTE | 2018-09-27 11:40 | DS ---
[facility] [address], [place] [address] Signed ADMISSION DATE: 09/25/2018 DISCHARGE DATE: 09/27/2018 FINAL DIAGNOSIS: Resolved small bowel obstruction. PROCEDURES: 1. CT scan of abdomen and pelvis. 2. Small bowel follow-through. HISTORY OF PRESENT ILLNESS: Sintia is a 73-year-old female who had previous abdominal surgery to include a laparoscopic cholecystectomy and a laparoscopic hysterectomy with removal of the right ovary. She has also had a bladder sling placed and repair of the vaginal wall. Over the last 4 years, she has had three episodes of small bowel obstructions. The most recent was in July 2018. It resolved within a day or two and she was discharged to home after her small bowel follow-through. On this occasion, she was feeling some abdominal distention and some nausea, so she came to emergency room for evaluation. Once again, white count was borderline and the CT scan showed what looks like some bowel wall edema and some fluid between loops of bowel in the right lower quadrant. She has chronically dilated bile ducts after the gallbladder was removed. I was asked to admit her as a general surgeon on-call. HOSPITAL COURSE: Sintia was admitted as above with an NG tube in place. By the next morning, she had already had some flatus and her abdominal distention was gone. We had a surgeon's small bowel follow-through performed over the weekend and there was no dilation to the small bowel and the contrast went readily through into the colon itself. By early afternoon, she was having multiple bowel movements. We let her eat throughout the afternoon in the evening by the next day. She was continued to do well. She is tolerating her diet and has had over 6 bowel movements and lots of flatus. She looks and feels much better. DISCHARGE PLANS AND MEDICATIONS: Sintia will be discharged to home without any new prescriptions. She can resume a regular diet and regular medications. We have reviewed small bowel obstructions now several times. She is very aware if this becomes repetitive chronic issue. She is going to need a laparotomy with lysis of adhesions. However, she very rapidly has resolved these two bowel obstructions within hours to a day or two. She is welcome to perform her activities of daily living including walking up and down stairs and showering bathing as usual. She is welcome to follow up in my office as needed. She has expressed Portions of this report were created using voice recognition software. There may be inadvertent computer error. Please read with context in mind. If there are any questions, please contact me. Electronically Signed By: EZEQUIEL JACKSON MD 09/27/18 1140 PATIENT NAME: SINTIA GENTILE DISCHARGE SUMMARY DATE OF : 43 REPORT #: [id number] PHYSICIAN: EZEQUIEL JACKSON MD PCP: KATHIE SEGUNDO PA-C REPORT IS CONFIDENTIAL AND NOT TO BE RELEASED WITHOUT AUTHORIZATION [address] [address] Signed understanding and agrees with the above plan. Ezequiel Jackson MD ALB/MODL /[id number] cc: MD Yoko Ratliff MD Chloe K Norris, PA-C Copies: EZEQUIEL JACKSON MD,KATHIE MUÑOZ MD, PA-C ~ Portions of this report were created using voice recognition software. There may be inadvertent computer error. Please read with context in mind. If there are any questions, please contact me. Electronically Signed By: EZEQUIEL JACKSON MD 09/27/18 1140 PATIENT NAME: SINTIA GENTILE [facility] DISCHARGE SUMMARY DATE OF : 43 REPORT #: [id number] PHYSICIAN: EZEQUIEL JACKSON MD PCP: KATHIE SEGUNDO PA-C REPORT IS CONFIDENTIAL AND NOT TO BE RELEASED WITHOUT AUTHORIZATION
== END 2018-09-27 09:55 | disposition home or self-care (01) | DRG 390 ==
LOC: ED 02:06 → CCU 02:07 → MS 10:24
PROVIDERS: ADMIT Colon & Rectal Surgery
DX: K56.609 Unspecified intestinal obstruction, unspecified as to partial versus complete obstruction (principal); I10 Essential (primary) hypertension; K21.9 Gastro-esophageal reflux disease without esophagitis; M19.90 Unspecified osteoarthritis, unspecified site; E03.9 Hypothyroidism, unspecified; R01.1 Cardiac murmur, unspecified; Z87.440 Personal history of urinary (tract) infections; Z79.1 Long term (current) use of non-steroidal anti-inflammatories (NSAID); Z79.890 Hormone replacement therapy; Z79.891 Long term (current) use of opiate analgesic; Z79.899 Other long term (current) drug therapy; Z90.49 Acquired absence of other specified parts of digestive tract; Z90.710 Acquired absence of both cervix and uterus
CPT/HCPCS: 36415; 51701; 71045; 74177; 74250; 80048; 80053; 81001; 83690; 83735; 83880; 84100; 84134; 84439; 84443; 85025; 93005; 93010; 99285-25; C9113; J1170; J1644; J2405; J2550; J7030; J7120; Q9967

== ENCOUNTER 2019-08-08 07:40 | Emergency (ER) | payer MEDICARE, OTHER ==
[~2019-08-08] VITALS: Ht 157.5 cm; Wt 55.8 kg
--- OUTSIDE RECORDS SUMMARY | 2019-08-08 07:42 | XMS ---
PreManage Notification: JAMES GENTILE Security Operations Associate Events No recent Security Events currently on file CRITERIA MET - PDMP CARE PROVIDERS Farideh Todd PA-C Treatment Current PHONE: Unknown Alana has no Care Guidelines for this patient. EAnna VISIT COUNT (12 MO.) 2 JUANIS Ruiz TOTAL 2 NOTE: Visits indicate total known visits. ED/UCC VISIT TRACKING (12 MO.) 08/08/2019 07:41 JUANIS Rousseau OR TYPE: Emergency COMPLAINT: - NAUSEA, DIZZYNESS 09/25/2018 02:06 JUANIS Rousseau [place] TYPE: Emergency COMPLAINT: - ABD PAIN INPATIENT VISIT TRACKING (12 MO.) 09/25/2018 10:24 JUANIS Rousseau [place] TYPE: Medical Surgical COMPLAINT: - SMALL BOWEL OBSTRUCTION DIAGNOSES: - Acquired absence of other specified parts of digestive tract - Cardiac murmur, unspecified - Essential (primary) hypertension - Unsp intestnl obst, unsp as to partial versus complete obst - Cardiac murmur, unspecified - Unspecified osteoarthritis, unspecified site - Gastro-esophageal reflux disease without esophagitis - superintendent marine oil terminal (current) use of opiate analgesic - Hormone replacement therapy - FPC (current) use of non-steroidal non-inflam (NSAID) - Essential (primary) hypertension - Acquired absence of both cervix and uterus - Gastro-esophageal reflux disease without esophagitis - FPC (current) use of opiate analgesic - Personal history of urinary (tract) infections - Hypothyroidism, unspecified - Other intermediate project manager (current) drug therapy - FPC (current) use of non-steroidal non-inflam (NSAID) - Hormone replacement therapy - Other jail (current) drug therapy - Acquired absence of other specified parts of digestive tract - Unspecified osteoarthritis, unspecified site - Acquired absence of both cervix and uterus - Personal history of urinary (tract) infections - Hypothyroidism, unspecified [email or web address]
== END 2019-08-08 11:39 | disposition home or self-care (01) ==
LOC: ED 07:40
DX: R42 Dizziness and giddiness (principal); I10 Essential (primary) hypertension; Z79.899 Other long term (current) drug therapy
CPT/HCPCS: 70496; 70498; 80053; 84484; 85025; 99284-25; Q9967

== ENCOUNTER 2019-08-24 00:18 | Inpatient (IN) | payer MEDICARE, OTHER ==
[~2019-08-24] VITALS: Ht 157.5 cm; Wt 56.1 kg
--- OUTSIDE RECORDS SUMMARY | 2019-08-24 00:20 | XMS ---
PreManage Notification: JAMES GENTILE Security Transportation Engineer Events No recent Security Events currently on file [facility] CARE PROVIDERS FARIDEH TODD Physician Protein Purification Scientist 08/09/2019-Current PHONE: [phone] Farideh Todd PA-C Treatment Current PHONE: Unknown Alana has no Care Guidelines for this patient. EAnna VISIT COUNT (12 MO.) [address] [place] [address] TOTAL 3 NOTE: Visits indicate total known visits. ED/UCC VISIT TRACKING (12 MO.) 08/24/2019 00:19 JUANIS Rousseau OR TYPE: Emergency COMPLAINT: - ABDOMINAL PAIN 08/08/2019 07:41 JUANIS Rousseau OR TYPE: Emergency COMPLAINT: - NAUSEA, DIZZYNESS DIAGNOSES: - Essential (primary) hypertension - Other usp (current) drug therapy - Dizziness and giddiness 09/25/2018 02:06 JUANIS Rousseau OR TYPE: Emergency [...] - Gastro-esophageal reflux disease without esophagitis - long-term (current) use of opiate analgesic - Hormone replacement therapy - long-term (current) use of non-steroidal non-inflam (NSAID) - Essential (primary) hypertension - Acquired absence of both cervix and uterus - Gastro-esophageal reflux disease without esophagitis - long-term (current) use of opiate analgesic - Personal history of urinary (tract) infections - Hypothyroidism, unspecified - Other buttermaker continuous churn (current) drug therapy - long-term (current) use of non-steroidal non-inflam (NSAID) - Hormone replacement therapy - Other usp (current) drug therapy - Acquired absence of other specified parts of digestive tract - Unspecified osteoarthritis, unspecified site - Acquired absence of both cervix and uterus - Personal history of urinary (tract) infections - Hypothyroidism, unspecified [email or web address]
[2019-08-24] MEDS ORDERED: PEPCID20 MG PO (00:33)
--- NOTE | 2019-08-24 04:47 | NUR ---
TELEPHONE REPORT RECEIVED FROM ANDREWS PATSOR. pt ARRIVES TO MS VIA STRETCHER. AMBULATORY TO RESTROOM FOR VOID AND BACK TO BED. ASSESSMENT COMPLETE. BOWEL TONES ACTIVE. ABD TENDER RUQ, MID EPIGASTRIC AREA. pt RATES PAIN 6/10 IN ABD. PAIN MEDICATIONS ADMINISTERED IN ED UPON EXIT. IV FLUSHED, IVF INFUSING WNL. IV ANTIBIOTIC INFUSING ORDERED. NPO. EDUCATION PROVIDED. ORAL CARE COMPLETE. CALL LIGHT IN REACH. LIGHTS OFF IN ROOM. SLEEPING IN RECLINER, COFFEE PROVIDED TO .
--- NOTE | 2019-08-24 06:00 | NUR ---
NO C/O NAUSEA SINCE ARRIVAL TO MS FLOOR. RESTING IN BED. SBA TO RESTROOM FOR QS VOIDS. ORAL CARE THIS SHIFT. NPO. BOWEL TONES ACTIVE THROUGHOUT ABD, ABD SOFT, TENDER IN RUQ, MID UPPER ABD. IVF INFUSING WNL ORDERED. IN ROOM.
--- NOTE | 2019-08-24 06:31 | NUR ---
CALL LIGHT ANSWERED. SBA TO RESTROOM FOR VOID. ORAL CARE COMPLETE. IVF INFUSING WNL ORDERED. pt DENIES ANY PAIN. DENIES NAUSEA. CALL LIGHT IN REACH.
--- NOTE | 2019-08-24 07:42 | NUR ---
0715: Report recieved from Nidia SPARROW. Pt resting in her bed visiting with her spouse and she denies any current pain or problems. Call harris within reach.
--- NOTE | 2019-08-24 09:37 | NUR ---
PT RESTING IN HER BED AND SHE DENIES ANY PAIN AT THIS TIME. CALL LYONS WITHIN REACH, IV INFUSING ORDERED. PT NOW SPEAKING WITH DC HYGIENE ASSISTANT.
--- NOTE | 2019-08-24 09:47 | NUR ---
PT DECLINED TO HAVE AND ICE BAG TO HER ABD SHE STATES SHE HAS NO PAIN AT THIS TIME. SCD,S PLACED, PT GIVEN AND IS AND INSTRUCTED IN IT'S USE.
--- NOTE | 2019-08-24 09:58 | NUR ---
PATIENT RESTING IN BED. PATIENT STATES ORAL CARE AND HANDS AND FACE HAS BEEN DONE THIS AM AT SINK. CALL BUTTON IN REACH. NO OTHER NEEDS AT THIS TIME.
--- NOTE | 2019-08-24 10:25 | CONS ---
[facility] [address], [place] [address] Signed DATE OF CONSULTATION: 08/24/2019 CHIEF COMPLAINT: Mid epigastric abdominal pain. HISTORY OF PRESENT ILLNESS: Sintia is a 73-year-old female from the [facility]. She and her have moved over to [place] to be closer to two sons who live actually 3 hours farther East in [place]. She has had previous surgery including a laparoscopic cholecystectomy and a laparoscopic hysterectomy and a right salpingo-oophorectomy. She has had at least two prior small bowel obstructions. The pain always seems to be in the right lower quadrant. With conservative treatment, it usually resolves. She said two weeks ago, she had trouble 3 in the morning walking and she lost vision in her right eye. She had been to the emergency room. There was concern she might have had a TIA. She was actually scheduled to see her primary care provider today. Apparently, she had a CT scan that was unremarkable in the ER. Last night, she was having mid epigastric abdominal pain and had nausea, vomiting, diarrhea, and felt better. However, the pain was quite intense. She said it was different than her previous small bowel obstructions. Consequently, she came to emergency room for evaluation. White count was a little up, but her liver function tests and other labs were fine. She may or may not have a urinary tract infection and does have a history of urinary tract infections. CT scan showed what might be a transition in the mid pelvis. Otherwise, the small bowel and stomach are not overly dilated. She was given Rocephin, Flagyl, and IV fluids. I was asked to see her as a general surgeon on-call. In the meantime, she is doing fine. In fact, her did ask me when she could go home. 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 PAST SURGICAL HISTORY: She underwent a laparoscopic hysterectomy with right salpingo-oophorectomy and bladder suspension and repair of the vaginal wall. She has also had a laparoscopic cholecystectomy. SOCIAL HISTORY: She does not smoke or drink. 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 She is . She had four children, all born vaginally. She still drives. They prefer the [facility]. Farideh Todd is her primary care provider. She told me her sees Dr. Mix for his heart. FAMILY HISTORY: Mother was a smoker, had lung cancer. Brother had some type of cancer on his lymph Electronically Signed By: EZEQUIEL JACKSON MD 08/24/19 1025 PATIENT NAME: SINTIA GENTILE CONSULTATION DATE OF : 43 REPORT #: [id number] PHYSICIAN: EZEQUIEL JACKSON MD PCP: FARIDEH TODD PA-C REPORT IS CONFIDENTIAL AND NOT TO BE RELEASED WITHOUT AUTHORIZATION [facility] [address], [place] [address] Signed nodes and dad was a smoker and of COPD. REVIEW OF SYSTEMS: She had 10 systems reviewed and there are no new findings, particularly no metal in the body. ALLERGIES: None. MEDICATIONS: Meloxicam, estradiol, tramadol, lisinopril, levothyroxine, amlodipine, vitamin B, and Pepcid. PHYSICAL EXAMINATION: VITAL SIGNS: Her blood pressure is 152/79, heart rate 73, respiratory rate 14, temperature 97.3. She is 93% on room air. She is 5 feet 2 inches at 56 kg. GENERAL: Sintia is a 73-year-old female, who does not appear systemically ill or toxic. She is an excellent historian. She makes excellent eye contact. Her is with her at the bedside. I see no residual neurologic effects with the face or hands and so forth. She has no carotid bruits. LUNGS: Clear to auscultation bilaterally. HEART: Regular rate and rhythm. She does have a quiet heart murmur. ABDOMEN: Generally soft, very mildly distended, but no pain. LABORATORY DATA: Her white blood cell count is 12, hemoglobin 10.6 with neutrophils 91, BUN 22, creatinine 0.9. Urinalysis showed some leukocyte esterase and bacteria, but she did have some squamous cells. Her albumin is 4.1, lipase is 28, and the liver function tests were all negative. RADIOGRAPHIC STUDIES: CT scan and pelvis is reviewed and she has what probably is a transition point down in the mid pelvis. Otherwise, no major findings. ASSESSMENT AND PLAN: Sintia is a 73-year-old female, who presents with what very well may be a recurrent partial small-bowel obstruction. However, she said it is quite different than what she has had before. At this point, we are going to treat her conservatively. We will withhold an NG tube currently. Also, she has had a recent TIA and she has a heart murmur that to her knowledge is new. She has never had an ultrasound of the carotid arteries or her heart. Also, she is anemic as well. Consequently, I am going to ask our Internal Medicine Service to see her in consultation. Sintia and her have expressed understanding and agreed above plan. Electronically Signed By: EZEQUIEL JACKSON MD 08/24/19 1025 PATIENT NAME: SINTIA GENTILE CONSULTATION DATE OF : 43 REPORT #: [id number] PHYSICIAN: EZEQUIEL JACKSON MD PCP: FARIDEH TODD PA-C REPORT IS CONFIDENTIAL AND NOT TO BE RELEASED WITHOUT AUTHORIZATION [address] [place], [place] [address] Signed Ezequiel Jackson MD ALB/MODL /[id number] cc: MD Farideh Zhu PA-C Andrew L Bower, MD Copies: KAEL MIX MD, CHLOE K PA-C BOWER, ANDREW L MD ~ Electronically Signed By: EZEQUIEL JACKSON MD 08/24/19 1025 PATIENT NAME: SINTIA GENTILE CONSULTATION DATE OF : 43 REPORT #: [id number] PHYSICIAN: EZEQUIEL JACKSON MD PCP: FARIDEH TODD PA-C REPORT IS CONFIDENTIAL AND NOT TO BE RELEASED WITHOUT AUTHORIZATION
[2019-08-24] MEDS ORDERED: ESTRACE42.5 GM VAGINAL (10:42)
[2019-08-24] MEDS ORDERED: CEPHALEXIN500 MG PO (10:55)
--- NOTE | 2019-08-24 10:57 | NUR ---
Med rec completed.
--- NOTE | 2019-08-24 10:59 | NUR ---
PT RESTING IN HER BED AND SHE CONTINUES TO DENIE ANY PAIN AT THIS TIME. SHE IS USING HER IS INSTRUCTED.
--- NOTE | 2019-08-24 11:30 | NUR ---
In to speak with Sintia. She states she lives in [place] with her . Son lives nearby. States she is active and likes to garden and be outside. Does not use any DME. States she has had SBO x5 and can tell she is already feeling better. States she is sure will go home soon. Wants to dc to home with spouse.
--- NOTE | 2019-08-24 12:00 | NUR ---
PATIENT AGREED TO BATH THIS AFTERNOON. NO OTHER NEEDS AT THIS TIME.
--- NOTE | 2019-08-24 12:45 | NUR ---
PATIENT HAS A VISITOR IN ROOM. PATIENT WILL CALL WHEN SHE IS READY TO WASH UP. NO OTHER NEEDS AT THIS TIME.
--- NOTE | 2019-08-24 12:56 | NUR ---
PT REMAINS NPO AND DENIES ANY ABD PAIN. SHE STATES SHE HAS NOT PASSED ANY GAS SINCE YESTERDAY WHEN SHE HAD HER LAST BM. ABD IS SOFT AND HER BOWEL SOUNDS ARE ACTIVE. PT VISITING WITH HER FAMILY NOW AND HER CALL LYONS IS WITHIN REACH.
--- NOTE | 2019-08-24 13:16 | NUR ---
PT SITTING UP IN BED-ALERT AND ORIENTED. PT STATED THAT SHE HAD HER HEAD HOME FOR A REST. HE STAYED HERE ALL NIGHT WITH HER. SHE FELT THE NEED TO TAKE A NAP, DISCUSSED HER LUIS F AT THIS MOMENT. PT REQUESTED PRAYER, WILL ALSO FOLLOW NEEDED
--- NOTE | 2019-08-24 13:20 | NUR ---
PT AND I DISCUSSED THE INFORMATION IN THE PACKET AND SPECIFICS TO HER SMALL BOWEL OBSTRUCTION. PT STATES SHE HAS HAD THESE BEFORE AND UNDERSTANDS THEM AND KNOWS WHEN SHE NEEDS TO SEEK HELP AND THAT SHE IS TO DRINK PLENTY OF FLUID AND TAKE HER MEDS THE DR RXS. DENIES QUESTIONS OR CONCERNS AT THIS TIME. WILL FOLLOW UP WITH HER TOMORROW
--- NOTE | 2019-08-24 13:50 | NUR ---
PT CONTINUES TO DENIES ANY PROBLEMS.
--- NOTE | 2019-08-24 13:52 | NUR ---
SHOWER OFFERED, PATIENT WILL TAKE SHOWER AFTER ANTIBIOTIC INFUSION
--- NOTE | 2019-08-24 16:38 | NUR ---
PT JUST FINISHED TAKING A SHOWER AND IS NOW RESTING IN HER CHAIR. SHE CONTINUES TO DENIE ANY PROBLEMS. IV WAS HOOKED BACK UP AND IS RUNNING ORDERED.
--- NOTE | 2019-08-24 17:42 | NUR ---
PT DENIES ANY PAIN OR PROBLEMS AT THIS TIME.
--- NOTE | 2019-08-24 19:00 | NUR ---
SHIFT REPORT RECEIVED FROM KOMAL BULLOCK AT BEDSIDE. PT AWAKE AND WATCHING TELEVISION. IV FLUIDS INFUSING, SITE WNL. PT DENIES NEEDS, CALL LIGHT IN REACH.
--- NOTE | 2019-08-24 19:28 | EKG ---
[facility] [address] [facility] [place] [facility] [place], [place] [address] Signed Normal sinus rhythm Normal ECG When compared with ECG of 25-SEP-2018 10:54, No significant change was found Confirmed by MIRA SAAVEDRA MD ([id number]) on 08/24/2019 7:28:21 PM Electronically Signed By: MIRA SAAVEDRA MD 08/24/19 1928 PATIENT NAME: JAMES GENTILE FAMILIA Electrocardiogram DATE OF : 43 PHYSICIAN: MIRA SAAVEDRA MD REPORT #: [id number] REPORT IS CONFIDENTIAL AND NOT TO BE RELEASED WITHOUT AUTHORIZATION
--- NOTE | 2019-08-24 19:50 | NUR ---
HELPED PT TO THE BATHROOM AND BACK TO BED. BEDSIDE TABLE AND CALL LIGHT IN REACH. PT NEEDS NOTHING MORE AT THIS TIME.
--- NOTE | 2019-08-24 20:35 | NUR ---
VITALS AND I&OS DONE AND CHARTED. HELPED PT TO THE BATHROOM AND BACK TO BED. BEDSIDE TABLE AND CALL LIGHT IN REACH. BROUGHT HER TWO WARM BLANKETS AND A HOT PACK FOR HER NECK PER PT REQUEST. PT NEEDS NOTHING MORE AT THIS TIME.
--- NOTE | 2019-08-24 20:45 | NUR ---
ASSESSMENT COMPLETE, SCHEDULED MEDS GIVEN (SEE EMAR). VSS, PT DENIES ABDOMINAL PAIN. REPORTS TOLERABLE DISCOMFORT IN NECK. DENIES NEED FOR PAIN MEDICATION AT THIS TIME, WILL MONITOR. IV FLUIDS INFUSING, SITE WNL. BOWEL TONES ACTIVE, PT DENIES NAUSEA. NPO AT THIS TIME. SCD'S IN PLACE, NO FURTHER NEEDS. CALL LIGHT IN EASY REACH.
--- NOTE | 2019-08-24 22:03 | NUR ---
ASSISTED PT BACK TO BED, FROM BATHROOM. STATES SHE IS FEELING BETTER, SELF HS CARE. SCD'S IN PLACE, ALL PERSONAL ITEMS WITHIN REACH.
--- NOTE | 2019-08-24 23:25 | NUR ---
PT UP SBA TO VOID, 200MLS OUTPUT NOTED. PT BACK IN BED, REPORTING 6/10 NECK PAIN. PRN PAIN MEDICATION GIVEN (SEE EMAR). PT IN GOOD SPIRITS, DENIES ADDITIONAL NEEDS. SCD'S IN PLACE. CALL LIGHT IN REACH.
--- NOTE | 2019-08-25 00:56 | NUR ---
PT UP SBA TO VOID, 300 MLS OUTPUT. PT BACK IN BED, SCD'S ON. NO FURTHER NEEDS, CALL LIGHT IN REACH.
--- NOTE | 2019-08-25 02:28 | NUR ---
VITALS AND I&OS DONE AND CHARTED. HELPED PT TO THE BATHROOM AND BACK TO BED. BEDSIDE TABLE AND CALL LIGHT IN REACH. PT NEEDS NOTHING AT THIS TIME.
--- NOTE | 2019-08-25 02:35 | NUR ---
VSS, PT DENIES PAIN. SCHEDULED IV ABX AND CARDIAC MED ADMINISTERED. IV SITE WNL, PT ON TELE#1. HR 62. ASSESSMENT COMPELTE, NO NEW CHANGES OR CONCERNS. BOWEL TONES ACTIVE, PT REPORTS PASSING GAS. NO NAUSEA AT THIS TIME. SCD'S ON. CALL LIGHT IN REACH.
--- NOTE | 2019-08-25 03:05 | NUR ---
IV ABX COMPLETE, SITE WNL. IV FLUIDS RESUMED. PT APPEARS COMFORTABLE, NO DISTRESS NOTED. CALL LIGHT IN REACH.
--- NOTE | 2019-08-25 05:52 | NUR ---
HELPED PT TO THE BATHROOM AND BACK TO BED. VITALS AND I&OS DONE AND CHARTED. FRESH WATER GIVEN FOR ORAL CARE. BEDSIDE TABLE AND CALL LIGHT IN REACH.
--- NOTE | 2019-08-25 06:50 | NUR ---
PER MD ORDERS, IV FLUIDS TITRATED TO 50MLS/HR, SITE WNL. CALL LIGHT IN REACH.
--- NOTE | 2019-08-25 07:05 | NUR ---
SCHEDULED IV ABX INFUSING, SITE WNL. CALL LIGHT IN REACH.
--- NOTE | 2019-08-25 07:44 | NUR ---
ASSISTED PT UP TO RESTROOM PER PT REQUEST. PT TOLERATED WELL WITH MINIMAL SBA. PT AGREES TO USE CALL STRING WHEN FINISHED.
--- NOTE | 2019-08-25 08:48 | NUR ---
PT RESTING IN SEMIFOWLERS POSITION IN BED. PT ALERT AND ORIENTED WATCHING TV. CALL LIGHT AND H2O IN REACH. PT ASSESSMENT COMPLETED AND AM MEDS ADMINISTERED. PT DENIES NEEDS OR CONCERNS.
--- NOTE | 2019-08-25 11:47 | NUR ---
PT CURRENTLY UP TO SHOWER WITH ASSSITANCE FROM SOY NATARAJAN.
--- NOTE | 2019-08-25 13:30 | NUR ---
PT SITTING UP IN CHAIR WATCHING TV. ASSESSMENT COMPELTED AND SCHEDULED MED ADMINISTERED. CALL LIGHT AND H2O IN REACH. NO NEEDS OR CONCERNS VOICED.
--- NOTE | 2019-08-25 14:43 | NUR ---
PT ALERT, ORIENTED AND SITTING UP IN BED READING. PT'S SON HENRRY HAD JUST BEEN BY TO VISIT. HE FEELS PT IS IMPROVING. GAVE PT A P..SHAWL AND HAD PRAYER WITH HER. PT STATED THAT SHE SLEPT WELL LAST NIGHT. WILL FOLLOW NEEDED
--- NOTE | 2019-08-25 14:58 | NUR ---
In and spoke with Sintia. in the room. She states sheis feeling better and diet was advanced. Feels she will go home tomorrow. Denies any further needs for safe discharge.
--- NOTE | 2019-08-25 16:11 | NUR ---
PT RESTING IN SEMIFOWLERS POSITION IN BED. PT ALERT AND ORIENTED. PT ASSISTED UP TO RESTROOM AND BACK TO BED. IVF CONTINUES TO INFUSE ORDERED. PM MED ADMINISTERED -SEE EMAR. CALL LIGHT AND H2O IN REACH. NO FURTHER NEEDS VOICED.
--- NOTE | 2019-08-25 19:10 | NUR ---
SHIFT REPORT RECEIVED FROM DAYSHIFT ANDREWS LEWIS AT BEDSIDE. PT AWAKE AND RESTING IN BED, VERBALIZES NEED TO VOID. IN BATHROOM, CALL LIGHT IN REACH.
--- NOTE | 2019-08-25 19:42 | NUR ---
NEW BAG OF IV FLUIDS INFUSING AT 50MLS/HR, SITE WNL. NO FURTHER NEEDS, CALL LIGHT IN REACH.
--- NOTE | 2019-08-25 20:50 | NUR ---
ASSESSMENT COMPLETE, SCHEDULED MEDS GIVEN WITHOUT CONCERN. PT AWAKE AND RESTING IN BED, SBA TO BED TO VOID. VSS, PT DENIES PAIN AT THIS TIME. IV FLUIDS INFUSING AT 50MLS/HR, SITE WNL. BOWEL TONES ACTIVE, NO NAUSEA REPORTED. PT DENIES ADDITIONAL NEEDS, VERY FRIENDLY AND INTERACTIVE WITH NURSING STAFF. CALL LIGHT IN REACH.
--- NOTE | 2019-08-25 21:30 | NUR ---
PT IV WAS BEEPING. ASSISTED HER TO THE RESTROOM AND BACK TO BED. IV IS NOW INFUSING HER NORMAL IV FLUID ABX ARE COMPLETE. PT DENIES FURTHE NEEDS AND CALL LIGHT IS CLOSE.
--- NOTE | 2019-08-25 22:15 | NUR ---
ASSISTED PT TO RESTROOM AND BACK TO BED. SHE WOULD LIKE PAIN MEDS, ALEXEY WILL BE IN TO ADMINISTER THEM SOON. SHE DENIES FURTHER NEEDS AND CALL LIGHT IS CLOSE.
--- NOTE | 2019-08-25 23:00 | NUR ---
PT REPORTING 5/10 NECK PAIN. BEGINNING SIGNS OF INFILTRATION NOTED TO IV SITE, SITE DISCONTINUED. CATHETER IP INTACT. NEW IV PLACED BY HOUSEHOLD APPLIANCES SERVICE TECHNICIAN, RN PAIN MEDICATION GIVEN. TELE#[address], HR WNL. PT DENIES ADDITIONAL NEEDS. CALL LIGHT IN REACH.
--- NOTE | 2019-08-26 01:15 | NUR ---
PT RESTING IN BED, EYES OPEN. DENIES NEEDS, CALL LIGHT IN REACH.
--- NOTE | 2019-08-26 02:40 | NUR ---
ASSESSMENT COMPLETE, NO NEW CHANGES OR CONCERNS. PT REPORTS 5-6/10 NECK AND HIP PAIN. PRN PAIN MEDICATION GIVEN (SEE EMAR). BOWEL TONES ACTIVE, PT DENIES NAUSEA, TOLERATING FULL LIQUID DIET. SCHEDULED IV ABX INFUSING, SITE WNL. NO FURTHER NEEDS, CALL LIGHT IN REACH.
--- NOTE | 2019-08-26 03:24 | NUR ---
ASSISTED PT TO BATHROOM, SBA. CALL LIGHT IN REACH.
--- NOTE | 2019-08-26 03:30 | NUR ---
HELPED PT FROM THE BATHROOM BACK TO BED. BEDSIDE TABLE AND CALL LIGHT IN REACH.
--- NOTE | 2019-08-26 05:47 | NUR ---
PT RESTING IN BED, ADMINISTRATIVE SERVICES SPECIALIST NOVEMBER IN ROOM TO COMPLETE VS. IV FLUIDS INFUSING AT 50MLS/HR, SITE WNL. PT DENIES NEEDS, CALL LIGHT IN REACH.
--- NOTE | 2019-08-26 05:48 | NUR ---
HELPED PT TO THE BATHROOM AND BACK TO BED. VITALS AND I&OS DONE AND CHARTED. FRESH WATER GIVEN. BEDSIDE TABLE AND CALL LIGHT IN REACH.
--- NOTE | 2019-08-26 07:22 | NUR ---
RECIEVED BEDSIDE REPORT FROM ANDREWS BLACKBURN. PT IS AWAKE AND ALERT IN BED. EXCITED TO GO HOME TODAY. IV ROCEPHIN RUNNING PER ORDER. DC ORDER IN COMPUTER. PT HAS NO NEEDS AT THIS TIME.
--- NOTE | 2019-08-26 07:22 | NUR ---
scheduled iv abx and thyroid medication administered (see emar). pt denies further needs, call light in reach.
[2019-08-26] MEDS ORDERED: ADULT ASPIRIN R81 MG PO (07:51)
[2019-08-26] MEDS ORDERED: LIPITOR20 MG PO (07:51)
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
--- NOTE | 2019-08-26 10:11 | NUR ---
PT DISCHARGE TEACHING COMPLETE. DISCUSSED FOLLOW UP, DIET, ACTIVITY, AND WHEN TO CALL THE DOCTOR. PT HAD QUESTIONS ABOUT WHAT FOODS TO EAT AND WHAT TO AVOID TO AVOID SBO. ENCOURAGED HIGH FIBER FOODS, PLEANTY OF FLUIDS, AND ACTIVITY. PT VERBALIZED UNDERSTANDING.
--- NOTE | 2019-08-26 10:14 | DS ---
[facility] [address], [place] [address] Signed ADMISSION DATE: 08/24/2019 DISCHARGE DATE: 08/26/2019 FINAL DIAGNOSES: 1. Resolved recurrent partial small-bowel obstruction. 2. Urinary tract infection. 3. Hyperlipidemia. PROCEDURES: 1. CT scan of the abdomen and pelvis. 2. Echocardiogram. 3. Telemetry. HISTORY OF PRESENT ILLNESS: Sintia is a 73-year-old female, who has had previous abdominal surgeries including hysterectomy and removal of the right ovary along with repair of the vaginal wall and bladder suspension and cholecystectomy. [id number] with symptomatic partial small bowel obstruction. It is generally in the right lower quadrant down in the pelvis. This time, it was more periumbilical. White count was borderline and a CT scan showed what might be a transition point down in the pelvis. I was asked to admit her as a general surgeon on-call. HOSPITAL COURSE: Sintia was admitted as above and treated conservatively. She does have a heart murmur, so we checked an echocardiogram. Her ejection fraction was good over 60% with mild aortic and tricuspid regurg. She was also on telemetry and did quite fine and was in normal sinus rhythm. We did consult the Internal Medicine Service with respect to her medical issues. Apparently, she had a recent TIA, so forth that workups all been negative. No carotid bruits. We were able to place Sintia on a full liquid diet and she has eaten very well and had multiple bowel movements. Her abdomen is completely soft, flat and benign, and no pain whatsoever. At this point, she is going to be discharged to home. DISCHARGE PLANS AND MEDICATIONS: Sintia will be discharged to home and can resume all her chronic medications and diet. She can resume her usual activities of daily living. Our Internal Medicine Service wants to add aspirin 81 mg p.o. daily as well as atorvastatin 20 mg p.o. daily. She is going to resume her antibiotics from Dr. Milton Pyle, her urologist. She will follow up with her primary care provider, Farideh Todd, in 1 to 2 weeks. She can follow up my office as needed. Sintia has expressed understanding and agrees above plan. Electronically Signed By: EZEQUIEL JACKSON MD 08/26/19 1014 PATIENT NAME: SINTIA GENTILE DISCHARGE SUMMARY DATE OF : 43 REPORT #: [id number] PHYSICIAN: EZEQUIEL JACKSON MD PCP: FARIDEH TODD PA-C REPORT IS CONFIDENTIAL AND NOT TO BE RELEASED WITHOUT AUTHORIZATION [address] [address] Signed Ezequiel Jackson MD ALB/ANDREWL /[id number] cc: MD Ezequiel Hickman MD Chloe K Norris, PA-C Copies: MILTON PYLE MD, ANDREW L MD NORRIS, CHLOE K PA-C ~ Electronically Signed By: EZEQUIEL JACKSON MD 08/26/19 1014 PATIENT NAME: SINTIA GENTILE FAMILIA DISCHARGE SUMMARY DATE OF : 43 REPORT #: [id number] PHYSICIAN: EZEQUIEL JACKSON MD PCP: FARIDEH TODD PA-C REPORT IS CONFIDENTIAL AND NOT TO BE RELEASED WITHOUT AUTHORIZATION
--- NOTE | 2019-08-26 12:31 | NUR ---
PT DRESSED AND WAITING FOR RIDE FOLLOWING DC. PT SAID SHE WAS FEELING WELL AND WAS LOOKING FORWARD TO SLEEPING IN HER OWN BED. HER SON HENRRY IS TAKING HER HOME. GAVE BLESSING, PT THANKED ME FOR VISITING WITH HER. WILL FOLLOW NEEDED
== END 2019-08-26 09:58 | disposition home or self-care (01) | DRG 389 ==
LOC: ED 00:18 → MS 03:28
PROVIDERS: ADMIT Colon & Rectal Surgery
DX: K56.600 Partial intestinal obstruction, unspecified as to cause (principal); N39.0 Urinary tract infection, site not specified; D64.9 Anemia, unspecified; I10 Essential (primary) hypertension; K21.9 Gastro-esophageal reflux disease without esophagitis; E78.5 Hyperlipidemia, unspecified; E03.9 Hypothyroidism, unspecified; M15.9 Polyosteoarthritis, unspecified; H54.7 Unspecified visual loss; E04.1 Nontoxic single thyroid nodule; E87.6 Hypokalemia; E83.39 Other disorders of phosphorus metabolism; I08.2 Rheumatic disorders of both aortic and tricuspid valves; Z86.73 Personal history of transient ischemic attack (TIA), and cerebral infarction without residual deficits; Z79.899 Other long term (current) drug therapy; Z79.1 Long term (current) use of non-steroidal anti-inflammatories (NSAID); Z79.891 Long term (current) use of opiate analgesic; Z79.890 Hormone replacement therapy
CPT/HCPCS: 36415; 74177; 80048; 80053; 81001; 82607; 82728; 82746; 83036; 83540; 83690; 83735; 84100; 84439; 84443; 84466; 85025; 85045; 93005; 93010; 93306; 96361; 99285-25; C9113; J0696; J1170; J1644; J2405; J7030; J7060; J7121; Q9967

== ENCOUNTER 2020-03-28 19:38 | Inpatient (IN) | payer MEDICARE, OTHER ==
[~2020-03-28] VITALS: Ht 157.5 cm; Wt 54.0 kg
[~2020-03-28 19:38] MED LIST changes: +ADULT ASPIRIN R81 MG PO; +CEPHALEXIN500 MG PO; +FLUCONAZOLE150 MG PO; +LIDOCAINE HCL100 ML MT; +LIPITOR20 MG PO; +PEPCID20 MG PO; +VANDAZOLE70 GM VAGINAL
--- OUTSIDE RECORDS SUMMARY | 2020-03-28 19:40 | XMS ---
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 E.Josesito VISIT COUNT (12 MO.) 4 JUANIS Ruiz TOTAL 4 NOTE: Visits indicate total known visits. 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 - Acute pharyngitis, unspecified - Essential (primary) hypertension 08/24/2019 00:19 JUANIS Rousseau [place] TYPE: Emergency COMPLAINT: - ABDOMINAL PAIN 08/08/2019 07:41 JUANIS Rousseau OR TYPE: Emergency COMPLAINT: - NAUSEA, DIZZYNESS DIAGNOSES: - Essential (primary) hypertension - Other exterminator helper (current) drug therapy - Dizziness and giddiness INPATIENT VISIT TRACKING (12 MO.) 08/24/2019 06:59 JUANIS Rousseau OR TYPE: Medical Surgical COMPLAINT: - PARTIAL SMALL BOWEL OBSTRUCTION DIAGNOSES: - Polyosteoarthritis, unspecified - Gastro-esophageal reflux disease without esophagitis - Personal history of transient ischemic attack (TIA), and cere - Hypothyroidism, unspecified - Other intestinal obstruction unspecified as to partial versus - Hormone replacement therapy - Hypokalemia - Essential (primary) hypertension - Urinary tract infection, site not specified - 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
[2020-03-28] MEDS ORDERED: OMEPRAZOLE20 MG PO (20:01)
[2020-03-28] MEDS ORDERED: TRAMADOL HCL50 MG PO (20:01)
--- NOTE | 2020-03-28 22:15 | NUR ---
PT ARRIVED TO FLOOR VIA STRETCHER. PT AMBULATES WITH NO ASSISTANCE. PT WAS TO TOILET TO VOID. VSS. ASSESSMENT COMPLETE.
--- NOTE | 2020-03-28 22:50 | NUR ---
BLOOD TRANSFUSION STARTED AT 2235. VSS. NO ADVERSE REACTIONS NOTED. PT COMPLAINS OF PAIN IN RIGHT ABDOMEN. PRN TYLENOL ADMINISTERED.
--- NOTE | 2020-03-29 00:41 | NUR ---
REPORT FROM ED ON TRANSFER TO THE FLOOR WAS THAT PT WAS TO RECIEVE 1 UNIT PRBCS. NO ORDER IN COMPUTER; THIS NURSE CALLED ED TO VERIFY ORDER AND NUMBER OF UNITS. ED DEPARTMENT STATED THAT PRBCS WERE ORDERED BY ED DOCTOR. ED TO UPDATE ORDER IN COMPUTER.
--- NOTE | 2020-03-29 01:17 | NUR ---
CALL LIGHT ANSWERED. PT UP TO TOILET TO VOID CLEAR YELLOW URINE. PT STATES PRN TYLENOL HELPED WITH R ABDOMEN PAIN. BLOOD TRANSFUSING ORDERED. PT RETURNED TO BED, CALL LIGHT WITHIN REACH
--- NOTE | 2020-03-29 02:25 | NUR ---
BLOOD TRANSFUSION FINISHED. NO ADVERSE REACTIONS NOTED. PT UP TO TOILET AGAIN. VSS. PT RETURNED TO BED, CALL LIGHT WITHIN REACH
--- NOTE | 2020-03-29 04:10 | NUR ---
CALL LIGHT ANSWERED. PT UP TO TOILET TO VOID. RETURNED TO BED, CALL LIGHT WIHTIN REACH. NO FURTHER NEEDS AT THIS TIME
--- NOTE | 2020-03-29 05:36 | NUR ---
CALL LIGHT ANSWERED. PT UP TO TOILET TO VOID CLEAR YELLOW URINE. ASSESSMENT COMPLETE; REMAINS UNCHANGED THIS SHIFT. BOWEL TONES ACTIVE IN ALL 4 QUADRANTS. PT STATES SHE CAN "FEEL" HER RIGHT ABD BUT IT "ISNT TERRIBLE". VSS. CALL LIGHT WITHIN REACH
--- NOTE | 2020-03-29 06:11 | NUR ---
PT HAD A DECENT NIGHT. PT CALLS APPROPRIATELY AND ONLY NEEDS SBA TO AMBULATE. PT HAD GOOD URINE OUTPUT OF CLEAR YELLOW URINE. BOWEL TONES ACTIVE IN ALL 4 QUADRANTS. PT C/O PAIN OF 5/10 AFTER ARRIVAL TO THE FLOOR. PRN TYLENOL ADMINISTERED WHICH BROUGHT THE PAIN TO 3/10. THIS PAIN WAS LOCATED IN RIGHT LOWER ABDOMEN WHICH WAS PRIMARY COMPLAINT ON ARRIVAL TO ED. PT IS ALERT AND ORIENTED. VSS. PT RECEIVED 1 UNIT PRBC PER ED ORDERS WITH NO ADVERSE REACTIONS.
--- NOTE | 2020-03-29 07:05 | NUR ---
REPORT RECEIVED FROM JUAN SPARROW. PT UP TO RESTROOM WITH 1 PERSON STAND BY ASSIST. PT REPORTS FEELING STEADY ON FEET. PT DENIES PAIN AND NAUSEA AT THIS TIME. ASSISTANCE PROVIDED WITH BRUSSING TEETH AND DOING MORNING CARES. PT BACK TO BED. PT REPORTS SHE HOPES TO GO HOME TODAY. CALL LIGHT WITHIN REACH.
--- NOTE | 2020-03-29 09:45 | NUR ---
MORNING ASSESSMENT AND MEDICATION DUE. PT UPDATED ON PLAN OF CARE AND NEED TO STAY FOR CONSULT WITH DR. MAK. PT VERBALIZES UNDERSTANDING. PT DENIES PAIN AND NAUSEA AT THIS TIME. PT REPORTS CONSTPATION STATING "I HAVEN'T HAD A BOWEL MOVEMENT IN [address] CANALES CONSULTED, STATES TO LEAVE PT NPO AT THIS TIME AND NOT TO GIVE MIRALAX AT THIS TIME. AWAITING CONSULT FROM DR. MAK. BROCK JOHNSON, ELYSSA. PTS , RIAZ, ARRIVED TO VISIT. RIAZ UPDATED ON PLAN OF CARE. TELE REMAINS IN PLACE. PT ORIENTED TO ALL. NO ADDITIONAL REQUESTS OR COMPLAINTS AT THIS TIME. CALL LIGHT WITHIN REACH.
[2020-03-29] MEDS ORDERED: LIPITOR20 MG PO (10:08)
--- NOTE | 2020-03-29 11:05 | NUR ---
THIS RN TO ROOM TO CHECK ON PT. PT VISITING WITH PHARMACIST. 1 PERSON ASSIST UP TO RESTROOM. PT VOIDS WITHOUT ISSUE. PT BACK TO BED. NO ADDITIONAL REQUESTS OR COMPLAINTS AT THIS TIME. CALL LIGHT WITHIN REACH.
[2020-03-29] MEDS ORDERED: SYNTHROID88 MCG PO (11:08)
[2020-03-29] MEDS ORDERED: MAGNESIUM200 MG PO (11:13)
[2020-03-29] MEDS ORDERED: VITAMIN D310 MC1 (11:14)
--- NOTE | 2020-03-29 11:40 | NUR ---
Spoke with Sintia. She has returned for abd pain and sore throat. States she cont. to live at home with her spouse on her son's property. She is in a 1 story home with 2 steps. She states they are active and she likes to garden. She is awaiting an egd and may need blood. She would like to go home when she is cleared medically.
--- NOTE | 2020-03-29 12:37 | EKG ---
[facility] [address] [place], [place] [address] Signed Normal sinus rhythm Normal ECG When compared with ECG of 24-AUG-2019 08:24, No significant change was found Confirmed by CASEY CANALES MD ([id number]) on 03/29/2020 12:37:41 PM Electronically Signed By: CASEY CANALES MD 03/29/20 1237 PATIENT NAME: JAMES GENTILE FAMILIA Electrocardiogram DATE OF : 43 PHYSICIAN: CASEY CANALES MD REPORT #: [id number] REPORT IS CONFIDENTIAL AND NOT TO BE RELEASED WITHOUT AUTHORIZATION
--- NOTE | 2020-03-29 12:47 | NUR ---
PT ALERT, ORIENTED AND SUPPORTED BY RIAZ AT BS. PT IS NPO, NEVER COMPLAINS AND FEELS SHE IS INFORMED AND UNDERSTANDS POC.PT REQUESTED PRAYER
--- NOTE | 2020-03-29 13:00 | NUR ---
NOON ASSESSMENT DUE. PT DENIES PAIN AND NAUSEA, PT REMAINS NPO RELATED TO UPCOMING PROCEEDURE. BOWEL TONES HEARD. LUNG SOUNDS CLEAR. ABDOMENT SOFT. 1 PERSON ASSIST UP TO RESTROOM, PT VOIDS WITHOUT ISSUE. PT UP TO SIT ON COUCH. PT DENIES ADDITIONAL REQUESTS OR COMPLAINTS. CONCENT FOR PROCEEDURE SIGNED. CALL LIGHT WITHIN REACH. AT BEDSIDE.
--- NOTE | 2020-03-29 14:58 | NUR ---
THIS RN TO ROOM TO CHECK ON PT. PT DENIES PAIN AND NAUSEA. PT REPORTS SKIN IS "ITCHY" UNDER TELE LEADS. NEW IV FLUID BAG HUNG. WARM BLANKETS PROVIDED. NO ADDITIONAL REQUESTS OR COMPLAINTS AT THIS TIME. CALL LIGHT WITHIN REACH.
--- NOTE | 2020-03-29 15:27 | NUR ---
pT HERE FOR UTI AND ANEMIA. PT RESTING IN BED FOR MOST OF SHIFT WITH BATHROOM PRIVILEGES. EGD THIS SHIFT. NO PAIN OR NAUSEA NOTED THIS SHIFT. SCHEDULED TRAMADOL GIVEN. TELE #[address] WITH NORMAL SINUS RHYTHEM. PT STEADY ON FEET WITH STAND BY ASSIST, DENIES DIZZINESS THIS SHIFT. PT NPO FOR PROCEEDURE. VOIDING QUANTITY SUFFICIENT. PT USES CALL LIGHT APPROPRIATLY.
--- NOTE | 2020-03-29 16:31 | NUR ---
AFTERNOON ASSESSMETN DUE. PT RESTING IN BED. PT ANTICIPATING EGD PROCEEDURE SOON. PT DENIES PAIN AND NAUSEA. BOWEL TONES ACTIVE. PT REMAINS NPO AT THIS TIME AND REPORTS HUNGER. NO ADDITIONAL REQUESTS OR OCMPLAINTS. CALL LIGHT WITHIN REACH. AT BEDSIDE.
--- NOTE | 2020-03-29 16:58 | NUR ---
PT CALL LIGHT ON. PT REQUESTS ASSISTANCE UP TO RESTROOM. STAND BY ASSIST UP TO RESTROOM. PT VOIDS WITHOUT ISSUE. PT BACK TO BED. NO ADDITIONAL REQUESTS OR COMPLAINTS. PT UPDATED ON PLAN OF CARE AND EGD, PT VERBALIZES UNDERSTANDING. CALL LIGHT WITHIN REACH. AT BEDSIDE.
--- NOTE | 2020-03-29 18:49 | NUR ---
THIS RN TO ROOM TO UPDATE PT ON PLAN OF CARE. PT VERBALIZES UNDERSTANDING AND STATES HER QUESTIONS HAVE BEEN ANSWERED. NO ADDITIONAL REQUESTS OR COMPLAINTS. CALL LIGHT WITHIN REACH. AT BEDSIDE.
--- NOTE | 2020-03-29 19:18 | NUR ---
I ASKED HER TODAY IF SHE WOULD LIKE TO TAKE A SHOWER AND SHE SAID SHE WAS WAITING ON WHAT THE DOCTOR HAS TO SAY.
--- NOTE | 2020-03-29 19:20 | NUR ---
RECEIVED REPORT FROM ANDREWS ANTUNEZ. pt UP TO TOILET WILL CALL WHEN READY. CALL LIGHT WITHIN REACH. WHITEBOARD UPDATED.
--- NOTE | 2020-03-29 19:27 | NUR ---
CALL LIGHT ON. pt SBA FROM BATHROOM TO BED. PROVIDED SOME ORAL SWABS FOR COMFORT. NO FURTHER REQUESTS AT THIS TIME. CALL LIGHT WITHIN REACH.
--- NOTE | 2020-03-29 20:20 | NUR ---
SBA PT UP TO TOILET, PT WILL CALL WHEN READY
--- NOTE | 2020-03-29 20:22 | PATH ---
[facility] [address] [facility] [facility] [address] [place], [place] [address] Signed ORDERING PHYSICIAN: Branden Wright DO PATIENT NAME: JAMES GENTILE GENDER: F : 1945 SPECIMEN(S): No Source Given MOLECULAR PATHOLOGY RESULTS: SARS-CoV-2 Not Detected ADDITIONAL NOTES.: The Grindstone Fusion SARS-CoV-2 Assay is a multiplex real-time PCR (RT-PCR) in vitro diagnostic test intended for the qualitative detection of RNA from SARS-CoV-2 from individuals who meet COVID-19 clinical and/or epidemiological criteria. In general, SARS-CoV-2 RNA can be detected during the acute phase of infection. Positive results indicate the presence of SARS-CoV-2 RNA. Clinical correlation with patient history and other diagnostic information is necessary to determine patient infection status. Positive results do not rule out bacterial infection or co-infection with other viruses. Negative results do not preclude SARS-CoV-2 infection and should not be used as the sole basis for patient management decisions. Negative results must be combined with other clinical observations, patient history, and epidemiological information. The Grindstone Fusion SARS-CoV-2 Assay is not yet approved or cleared by the [place] FDA. When there are no FDA-approved or cleared tests available, and other criteria are met, FDA can make tests available under an emergency access mechanism called an Emergency Use Authorization (EUA). The EUA for this test is supported by the [place] of Health and Human Service's (HHS's) declaration that circumstances exist to justify the emergency use of in vitro diagnostics for the detection and/or diagnosis of the virus that causes COVID-19. This EUA will remain in effect for the duration of the COVID-19 declaration justifying emergency of IVDs, unless it is terminated or revoked by FDA, after which the test may no longer be used. The Grindstone Fusion SARS-CoV-2 Assay is for use only under EUA in US laboratories certified under the Clinical Laboratory Improvement Amendments of 1988 (CLIA) to perform high complexity tests. [facility] is certified under CLIA to perform high complexity PATIENT NAME: JAMES GENTILE FAMILIA PATHOLOGY DATE OF : 43 REPORT #: [id number] PHYSICIAN: SUNITHA RAY PCP: KATHIE SEGUNDO PA-C REPORT IS CONFIDENTIAL AND NOT TO BE RELEASED WITHOUT AUTHORIZATION [facility] [address] [place] [id number] Signed clinical laboratory testing. PERFORMING LABORATORY.: Molecular testing was performed by [facility] [place] [address] (Clamp Carrier Operator: Xander Hubbard D.O.; CLIA#: [id number]) Diagnostician: System Interface Pathologist Electronically Signed 03/29/2020 Copies: ~ PATIENT NAME: JAMES GENTILE FAMILIA PATHOLOGY DATE OF : 43 REPORT #: [id number] PHYSICIAN: SUNITHA RAY PCP: KATHIE SEGUNDO PA-C REPORT IS CONFIDENTIAL AND NOT TO BE RELEASED WITHOUT AUTHORIZATION
--- NOTE | 2020-03-29 20:26 | NUR ---
SBA PT BK TO BED, CALL LIGHT IN REACH, NOTHING FURTHER REQUESTED
--- NOTE | 2020-03-29 21:30 | NUR ---
CALL LIGHT ON. pt HAD JUST SPOKEN WITH DR MAK AND WOULD LIKE SOMETHING TO EAT. PROVIDED WITH PUDDING AND WATER. ASSESSMENT DONE. REPORTED 3/10 PAIN, MAINLY ON RIGHT SIDE OF ABD, TENDER. MEDICATIONS GIVEN (SEE MAR). NO FURTHER REQUESTS AT THIS TIME. CALL LIGHT WITHIN REACH.
--- NOTE | 2020-03-29 22:16 | NUR ---
HELPED PT BACK TO BED FROM THE BATHROOM .BEDSIDE TABLE AND CALL LIGHT IN REACH.
--- NOTE | 2020-03-29 22:20 | NUR ---
IV PUMP BEEPING, IV ABX INFUSION COMPLETED. IVF INFUSING. pt UP TO VOID. CALL LIGHT WITHIN REACH.
--- NOTE | 2020-03-30 00:17 | NUR ---
HELPED PT TO THE BATHROOM. SHE WILL CALL WHEN SHE IS DONE.
--- NOTE | 2020-03-30 00:26 | NUR ---
CALL LIGHT ON. pt AMBULATED FROM BATHROOM TO BED. pt NPO AT THIS TIME. REPORTED PAIN IS "OKAY" NO REQUESTS AT THIS TIME. SETTLED IN BED. CALL LIGHT WITHIN REACH.
--- NOTE | 2020-03-30 02:20 | NUR ---
CALL LIGHT ON. pt UP TO TOILET AND BACK TO BED. NO REQUESTS AT THIS TIME. CALL LIGHT WITHIN REACH.
--- NOTE | 2020-03-30 03:47 | NUR ---
CHANGED PTs TELE JONI, PT HAD NO OTHER REQUESTS AT THIS TIME, LEFT PT TO REST
--- NOTE | 2020-03-30 03:47 | NUR ---
CHANGED PTS TELE BATTERY. HE NEEDS NOTHING AT THIS TIME.
--- NOTE | 2020-03-30 04:35 | NUR ---
HELPED PT TO HER BED FROM THE BATHROOM. BEDSIDE TABLE AND CALL LIGHT IN REACH. PT NEEDS NOTHING MORE AT THID TIME.
--- NOTE | 2020-03-30 04:37 | NUR ---
IV PUMP BEEPING. NEW BAG OF IVF HUNG. NO REQUESTS AT THIS TIME. CALL LIGHT WITHIN REACH.
--- NOTE | 2020-03-30 06:33 | NUR ---
took pt vitals, i&os done, call light in reach, pt has no further requests at this time, left pt to rest
--- NOTE | 2020-03-30 06:33 | NUR ---
VITALS AND I&OS DONE AND CHARTED.GARBAGES EMPTIED. BEDSIDE TABLE AND CALL LIGHT IN REACH. PT NEEDS NOTHING AT THIS TIME.
--- NOTE | 2020-03-30 06:43 | NUR ---
ROUNDED ON pt. NO NEEDS AT THIS TIME. CALL LIGHT WITHIN REACH.
--- NOTE | 2020-03-30 07:33 | NUR ---
REPORT RECEIVED FROM ANDREWS SNYDER. PT RESTING IN BED. PT DENIES PAIN AND NAUSEA. PLAN OF CARE DISCUSSED WITH PT, PT VERBALIZES UNDERSTANDING. NO ADDITIONAL REQUESTS OR COMPLAINTS AT THIS TIME. CALL LIGHT WITHIN REACH.
--- NOTE | 2020-03-30 09:19 | NUR ---
MORNING ASSESSMENT AND MEDICATION DUE. PT RESTING IN BED. PT REMAINS NPO AT THIS TIME. PT REPORTS HUNGER. BOWEL TONES ACTIVE ON LEFT SIDE. PT REPORTS 2/10 PAIN IN RIGHT ABDOMEN, BOWEL TONES HYPOACTIVE ON RIGHT SIDE. PT REPORTS A SMALL BOWEL MOVEMENT LAST NIGHT. LUNG SOUNDS CLEAR. HEART TONES REGULAR. PT UP DATED ON PLAN OF CARE. PT CHEERFUL AND INVOLVED WITH CARES. PT HAS HAD SHOWER THIS MORNING, FRESH GOWN AND LINENS IN PLACE. NO ADDITONAL REQUESTS OR COMPLAINTS. CALL LIGHT WITHIN REACH.
--- NOTE | 2020-03-30 10:30 | NUR ---
Pt. awaiting EGD. Denies needs.
--- NOTE | 2020-03-30 10:33 | NUR ---
MARILEE, PARKING METER ATTENDANT ARRIVED TO OUTBOARD MOTOR ASSEMBLER PT. PT UP TO RESTROOM, STAND BY ASSIST. IV PLACED TO LR ON STRAIGHT TUBING. REPORT GIVEN TO MARILEE PT TAKEN TO DAY SURGERY.
--- NOTE | 2020-03-30 12:15 | NUR ---
PT TAKEN FOR EGD, IN RM WAITING PATIENTLY FOR PT TO RETURN. MIRTA SEEMS TO BE DEALING WITH WAITING APPROPRIATELY. GAVE BLESSING WILL FOLLOW NEEDED.
--- NOTE | 2020-03-30 13:25 | NUR ---
PT REMAINS IN DAY SURERY DEPARTMENT. PTS RIAZ, IN ROOM, UPDATED ON PT SATUS. RIAZ STATES HIS QUESTIONS HAVE BEEN ANSWERED. DAY SURGERY CALLED AND UPDATED THAT PTS FAMILY IS IN THE ROOM FOR UPDATED IF NEEDED. REMOTE PROVIDED FOR RIAZ TO WATCH TV.
--- NOTE | 2020-03-30 14:09 | NUR ---
03/30/20 1409 Gris Clarke 1400- PT ARRIVES TO PACU NONAROUSABLE TO NOXIOUS STIMULI WITH AN OPA IN PLACE. RESP EVEN AND UNLABORED. OXYGEN SAT HIGH 90'S TO 100% ON 10L VIA OXYMASK.
--- NOTE | 2020-03-30 14:22 | NUR ---
DR. MAK TO ROOM TO TALK WITH FAMILY.
--- NOTE | 2020-03-30 14:40 | NUR ---
PT RETURNED FROM DAY SURGERY. RECIEVED PT HANDOFF FROM ANDREWS BENNETT. PT ALERT AND ORIENTED X 4. PT TRANSFERRED FROM STRETCHER TO BATHROOM INDEPENDENTLY. VOIDED AND BM NOTED. PT TRANSFERRED BACK TO BED INDEPENDENTLY. PT EDUCATED ON BOWEL PREP. COMOD TO BEDSIDE. PT STARTED BOWEL PREP ON ARRIVAL TO FLOOR. AT BEDSIDE. IVF INFUSING WNL. PT DENIES FURTER NEEDS AT THIS TIME. CALL LIGHT WITHIN REACH. SIDE RAILS UP X 3. WILL CONTINUE TO MONITOR.
--- NOTE | 2020-03-30 15:42 | NUR ---
HOURLY VS DUE. PT RESTING IN BED AND REPORTS URGE TO USE COMOD. PT SELF TRANSFERRED FROM BED TO COMOD WITH STAND BY ASSIST. IVF INFUSING WNL. PT FINISHED INITIAL 300ML OF BOWEL PREP AND REFILLED CUP WHILE RN IN ROOM. PT DENIES FURTHER NEEDS OR DISCOMFORT AT THIS TIME. WILL CONTINUE TO MONITOR. AT BEDSIDE.
--- NOTE | 2020-03-30 15:52 | NUR ---
THIS RN TO BEDSIDE TO CHECK ON PT. PT RESTING IN BED. PT DENIES PAIN AND NAUSEA. WORKING ON BOWEL PREP. NO ADDITIONAL REQUESTS OR COMPLAINTS. RNERVIN'S CHARTING REVIEWED BY THIS RN. BED RAILS UP. CALL LIGHT WITHIN REACH.
--- NOTE | 2020-03-30 16:29 | NUR ---
IN PT ROOM TO ANSWER CALL LIGHT. PT REQUESTED TO USE COMOD. PT TRANSFERRED INDEPENDENTLY WITH STAND BY ASSIST FROM BED TO COMOD. HOURLY VS COMPLETED. IVF INFUSING WNL. PT REPORTS SOME NAUSEA AFTER RETURNING TO BED FROM COMOD. ENCOURAGED PT TO TAKE SMALLER SIPS OF BOWEL PREP AND WILL CONSULT WITH ANDREWS ANTUNEZ ON FURTHER INTERVENTIONS. PT DENIES FURTHER NEEDS OR CONCERNS AT THIS TIME. WILL CONTINUE TO MONITOR.
--- NOTE | 2020-03-30 16:35 | NUR ---
PT CALL LIGHT ON. PT REQUESTS ASSISTANCE TO USE BEDSIDE COMODE. PT ASSITED BY ANDREWS MUELLER. VITALS TAKEN. PT DENIES PAIN AND NAUSEA. REPORTS MILD DISCOMFORT FROM BOWEL PREP, DENIES NEED FOR MEDICATION. PT CONTINUES WORKING BOWEL PREP. ANDREWS MUELLER AT BEDSIDE WITH PT. VITALS AND NOTE BY ANDREWS MUELLER REVEIWED BY THIS RN. CALL LIGHT WITHIN REACH.
--- NOTE | 2020-03-30 17:40 | NUR ---
VITALS DUE. THIS RN TO ROOM TO CHECK ON PT. PT CONTINUES TO REPORT NAUSEA AND HAS STOPPED TAKING IN BOWEL PREP. VITALS TAKEN, WNL. DR. MAK CALLED WITH UPDATE. NAEEM ORDERED. REPEAT BACK OF ORDER GIVEN OVER TELEPHONE AND CONFIRMED BY DR. MAK. MEDICATION GIVEN (SEE MAR). WARM BLANKETS PROVIDED FOR PT. NO ADDITIONAL REQUESTS OR COMPLAINTS. CALL LIGHT WITHIN REACH.
--- NOTE | 2020-03-30 18:38 | NUR ---
PT HERE FOR UTI AND ANEMIA. PT INDEPENDANT IN ROOM WITH STAND BY ASSIST FOR LINE MANAGEMENT. EGD DONE THIS SHIFT AND COLONOSCOPY PLANNED FOR TOMORROW. PT HAVING DIFFICULTY WITH BOWEL PREP, NAUSEA NOTED. NO BOWEL MOVEMENTS YET THIS SHIFT. PRN ZOFRAN GIVEN. PT ON CLEAR LIQUID DIET TO BE NPO AT MIDNIGHT. PT REMAINS ON TELE #9 IN NORMAL SINUS RHYTHEM THIS SHIFT. NO PAIN THIS SHIFT. PT USES CALL LIGHT APPROPRIATLY.
--- NOTE | 2020-03-30 18:43 | NUR ---
THIS RN TO ROOM TO CHECK ON PT. PT REPORTS NAUSEA HAS RESOLVED. PT STATES SHE WILL CONTINUE SIPPING ON HER BOWEL PREP GATORADE. NO ADDITIONAL REQUESTS OR COMPLAINTS. CALL LIGHT WITHIN REACH. BED RAILS UP.
--- NOTE | 2020-03-30 19:40 | NUR ---
SHIFT REPORT RECEIVED FROM KOMAL ANTUNEZ AT BEDSIDE. PT AWAKE AND RESTING IN BED. IV FLUIDS INFUSING, SITE WNL. BSC AT BEDSIDE PT IS TAKING BOWEL PREP, INDEPENDENT IN ROOM. NO FURTHER NEEDS, CALL LIGHT IN REACH. BOARD UPDATED.
--- NOTE | 2020-03-30 20:09 | NUR ---
CLEANED UP PT'S BSC AND PUT IT BACK SO SHE CAN GET TO IT. GAVE HER MORE PADS, ATTENDS AND WIPES. SHE WILL CALL IF SHE NEEDS ANYTHING. CALL LIGHT IN REACH.
--- NOTE | 2020-03-30 20:39 | NUR ---
VITALS AND I&OS DONE AND CHARTED. EMPTIED BSC. BEDSIDE TABLE AND CALL LIGHT IN REACH. PT NEEDS NOTHING MORE AT THIS TIME.
--- NOTE | 2020-03-30 21:15 | NUR ---
ASSESSMENT COMPLETE, SCHEDULED MEDS GIVEN (SEE EMAR). PT DENIES PAIN AND NAUSEA. TELE#9, VSS. FOUND IN ROOM, BM MISSED BSC, PT ON BOWEL PREP. ASSISTED WITH PT CARE AND PT BACK IN BED. NO FURTHER NEEDS, CALL LIGHT IN REACH.
--- NOTE | 2020-03-30 22:40 | NUR ---
pt reporting return of mild nausea and states, "if i don't get something i won't be able to finish this stuff". pt referring to bowel prep. remaining 4mg prn zofran given (see emar). iv fluids resumed, iv site wnl. pumps cleared. call light in reach.
--- NOTE | 2020-03-30 23:39 | NUR ---
ROUNDED ON PT, PT INCONTINENT OF BM, MISSED BSC. PT ASSISTED WITH NEW BRIEFS AND IS BACK RESTING IN BED. IV FLUIDS INFUSING, SITE WNL. NO FURTHER NEEDS, ENCOURAGED TO CONTINUE DRINKING BOWEL PREP. PT VERBALIZED UNDERSTANDING. CALL LIGHT IN REACH.
--- NOTE | 2020-03-31 00:05 | NUR ---
PT COMPLETED BOWEL PREP AND IS NOW NPO AT THIS TIME. NO FURTHER NEEDS, CALL LIGHT IN REACH.
--- NOTE | 2020-03-31 01:30 | NUR ---
PT UP TO GET READY FOR BED, NEW GOWN PROVIDED. PT REPORTS FEELING LIKE HER IV SITE SOULD BE LEAKING. SITE FLUSHES EASILY, NO LEAKING NOTED AND NO SWELLING NOTED. WILL MONITOR. VSS, PT DENIES FURTHER NEEDS. CALL LIGHT IN REACH.
--- NOTE | 2020-03-31 03:31 | NUR ---
PT RESTING QUIETLY IN BED WITH EYES CLOSED. RR EVEN AND UNLABORED. NO DISTRESS NOTED. CALL LIGHT IN REACH.
--- NOTE | 2020-03-31 04:41 | NUR ---
ASSESSMENT COMPLETE, NO NEW CHANGES OR CONCERNS. PT AWAKE AND RESTING IN BED, VSS. PT DENIES PAIN AND NAUSEA. IV FLUIDS INFUSING, SITE WNL. TELE#[address], SINUS RHYTHM. NO ADDITIONAL NEEDS, RECENTLY HAD ANOTHER BM. CALL LIGHT IN REACH.
--- NOTE | 2020-03-31 04:58 | NUR ---
VITALS AND I&OS DONE AND CHARTED. GARBAGES EMPTIED. BSC EMPTIED. BEDSIDE TABLE AND CALL LIGHT IN REACH. PT NEEDS NOTHING AT THIS TIME.
--- NOTE | 2020-03-31 05:05 | NUR ---
VITALS, I&Os DONE, WARM BLANKET PROVIDED, PT HAD NO FURTHER REQUESTS AT THIS TIME, CALL LIGHT IN REACH
--- NOTE | 2020-03-31 05:37 | NUR ---
PREPROCEDURE CHECKLIST BEGAN AND LR WITH STRAIGHT TUBING IN ROOM FOR COLONOSCOPY. PT RESTING IN BED WITH EYES CLOSED. RR EVEN AND UNLABORED. NO DISTRESS NOTED. CALL LIGHT IN REACH.
--- NOTE | 2020-03-31 07:06 | NUR ---
REPORT RECEIVED FROM ANDREWS BLACKBURN. PT RESTING IN BED ON BACK WITH EYES CLOSED. RESPIRATIONS EVEN AND UNLABORED. PT ALLOWED TO REST. BED RAILS UP. CALL LIGHT WITHIN REACH.
--- NOTE | 2020-03-31 07:41 | NUR ---
PTS BLOOD SUGAR NOTED TO BE LOW. THIS RN TO BEDISDE. PT DENIES LIGHTHEADEDNESS, TREMORS, NAUSEA OR IRRITABILITY. NO DIAPHRESIS NOTED. S/S OF HYPOGLYCEMIA REVIEWED WITH PT AND PT ADVISED TO CALL IF SHE NOTICES ANY NEW SYSTMES. PT ALERT AND ORIENTED X4 AND STEADY ON FEET. PT UP TO RESTROOM WITH STAND BY ASSIST, REQUESTS SHOWER THIS MORING. CALL LIGHT WITHIN REACH. NO ADDITIONAL REQUESTS OR COMPLAINTS.
--- NOTE | 2020-03-31 08:17 | NUR ---
PATIENT RESTING IN BED. IV WRAPPED. SETS UP BATHROOM FOR SHOWER. CALL LIGHT WITHIN REACH. NO OTHER NEEDS AT THIS TIME
--- NOTE | 2020-03-31 09:29 | NUR ---
MORNING ASSESSMENT AND MEDICATION DUE. PT FINISHED WITH SHOWER AND UP TO CHAIR. PT REPORTS BOWEL MOVMENTS ARE "PRETTY CLEAR WITH A LITTLE STUFF." BOWEL MOVMENTS HAVE DECREASED IN FREQUENCY. ASSESSSMENT DONE. BOWEL TONES ACTIVE. LUNG SOUNDS CLEAR. PT DENIES PAIN AND NAUSEA. MEDICATIONS GIVEN. IV ASSESSED, WNL. BLOOD RETURN NOTED. PRE-PROCEEDURE CHECK LIST COMPLETE. PT BACK TO BED TO "REST MY LEGS." NO ADDITIONAL REQUESTS OR COMPLAINTS AT THIS TIME. CALL LIGHT WITHIN REACH.
--- NOTE | 2020-03-31 09:51 | NUR ---
PATIENT RESTING IN BED. VITAL SIGNS AND I&O DONE. CALL LIGHT WITHIN REACH. NO OTHER NEEDS AT THIS TIME
--- NOTE | 2020-03-31 10:30 | NUR ---
THIS RN TO ROOM TO CHECK ON PT. PT RESTING IN BED WITH EYES CLOSED. PT ALLOWED TO REST AT THIS TIME. WILL RECHECK BLOOD SUGAR AT NOON. BED RAILS UP. CALL LIGHT WITHIN REACH.
--- NOTE | 2020-03-31 11:52 | NUR ---
CBG TAKEN TO RECHECK BLOOD SUGAR. NOTED TO BE [address] MAK CALLED. ORDERS FOR 1 AMP OF D50 AT THIS TIME AND TO START D5LR FUIDS AT SAME RATE. DR. CANALES NOTIFIED OF CHANGES. ORDERS PLACED.
--- NOTE | 2020-03-31 12:10 | NUR ---
D50 AMP GIVEN AND D5 LR STARTED PER MD ORDER. PT RESTING IN BED. PT CONTINUES TO DENY DIZZINESS, HUNGER, TREMORS OR DIAPHROESIS. PT AWAKE AND ALERT, ORIENTED TO ALL. MOUTH SWABS PROVIDED PER PT REQUEST. PT UPDATED ON PLAN OF CARE AND COLONOSCOPY TIME. BED RAILS UP. CALL LIGHT WITH REACH.
--- NOTE | 2020-03-31 12:12 | NUR ---
REPORT GIVEN TO ANDREWS LE, WHO WILL BE TAKING OVER CARE OF PT. QUESTIONS ASKED AND ANSWERED.
--- NOTE | 2020-03-31 12:35 | NUR ---
REPORT GIVEN TO ANDREWS LE. PT UP TO RESTROOM. OR TEAM ARRIVED TO TAKE PT FOR PROCEEDURE. MIMI ASSUMING CARE OF PT AND IS AT BEDSIDE WORKING WITH PT AND INVESTOR RELATIONS COORDINATOR.
--- NOTE | 2020-03-31 12:50 | NUR ---
REPORT RECEIVED. PT OFF TO SURGERY.
--- NOTE | 2020-03-31 13:32 | NUR ---
03/31/20 1332 Madhav Buitrago RESPONDS TO TAP AND VOICE AT 1332. OPA REMOVED. PT REORIENTED TO TIME AND SITUATION. FALLS ASLEEP BEFORE BEING ABLE TO ANSWER QUESTIONS
--- NOTE | 2020-03-31 13:50 | NUR ---
PT ARRIVED TO FLOOR VIA STRETCHER. ABLE TO STAND AND TRANSFER. ASSESSMENT COMPLETED. VITALS TAKEN. LUNCH ORDERED. PT IS ALERT AND ORIENTED.
--- NOTE | 2020-03-31 14:11 | NUR ---
PATIENT RESTING IN BED. RN AND IN ROOM. VITAL SIGNS DONE BY RN. I&O DONE. CALL LIGHT WITHIN REACH. NO OTHER NEEDS AT THIS TIME
--- NOTE | 2020-03-31 14:30 | NUR ---
BLOOD STARTED. PT EDUCATED ON S/SX OF TRANSFUSION REACTION. VITALS TAKEN AND STABLE. INFUSING FOR 15 MIN AT 30ML/HR.
--- NOTE | 2020-03-31 16:35 | NUR ---
BLOOD COMPLETED. VITALS TAKEN AND STABLE. IV DC'D TELE DC'D. PT INSTRUCTED TO GET DRESSED. PHARMACY IN TO DISCUSS MEDICATIONS.
--- NOTE | 2020-04-03 10:29 | OR ---
[facility] [address] [place], [place] [address] Signed DATE OF OPERATION: 03/31/2020 SURGEON: Memo Mak MD PREOPERATIVE DIAGNOSIS: Anemia with normal upper endoscopy recently. POSTOPERATIVE DIAGNOSIS: Extensive diverticulosis of colon, no sign of active bleeding. PROCEDURE: Total colonoscopy to cecum. ANESTHESIA: Intravenous sedation, propofol infusion; Memo Hill CRNA INDICATIONS: A 74-year-old white woman admitted on 03/28/[address] Morel. She was noted to have significant anemia with hematocrit of 22. She has undergone transfusion. She underwent upper endoscopy yesterday, which showed no sign of lesion to account for anemia. Her last upper endoscopy and colonoscopy was in 2018. The patient originally had some upper abdominal pain, and subsequently right lower abdominal pain. Colonoscopy is undertaken today after full bowel prep. She understands the risks of bleeding, infection, and perforation, and wished to proceed. FINDINGS: Prep was excellent. Complete colonoscopy was undertaken of the cecum without question. Good visualization of the appendiceal orifice and ileocecal valve was noted. Extensive attempts to intubate the ileum were not successful. She did have extensive diverticular changes, particularly in the left colon and sigmoid with scattered diverticula elsewhere. There was no lesion to account for anemia, and certainly no sign of bleeding lesion at this time. DESCRIPTION OF PROCEDURE: The patient was brought to the endoscopy suite and placed in lateral decubitus position, given intravenous sedation with propofol infusional technique with full cardiopulmonary monitoring. Digital rectal examination was normal. An Olympus video colonoscope was passed into the rectum and manipulated throughout the colon noting numerous diverticula of the sigmoid and left colon. Scope was advanced Electronically Signed By: MEMO MAK MD 04/03/20 1029 PATIENT NAME: JAMES GENTILE OPERATIVE REPORT DATE OF : 43 REPORT #: [id number] PHYSICIAN: MEMO MAK MD PCP: FARIDEH SEGUNDO PA-C REPORT IS CONFIDENTIAL AND NOT TO BE RELEASED WITHOUT AUTHORIZATION [facility] [address] [facility] [place], [place] [address] Signed beyond this showing diverticula even of the transverse colon and some more proximally than that. Ultimately, the cecum was intubated. The ileocecal valve and appendiceal orifice were normal. Multiple attempts were made to intubate the ileum, but this was not forthcoming despite attempts to do so. A biopsy was taken of the cecum to assess for colitis. The scope was withdrawn. Remaining colon showed only the diverticulosis as previously described. Rectum was normal as well. Scope was removed, and the patient was taken to the recovery room in good condition. CONCLUDING DIAGNOSIS: Extensive diverticulosis. No evidence of active bleeding or recent bleeding. No sign of neoplasm or colitis. PLAN: She will return to the regular nursing floor. Regular diet might be considered. It is recalled she underwent a CT scan of the abdomen and pelvis at the time of admission on March 28, which showed no sign of bowel obstruction. No obstructing lesion or neoplasm of the small bowel or elsewhere. Whether or not a CT scan with GI contrast would be beneficial, it is uncertain since she has had a bowel prep. I am highly confident that the colon is free of any neoplasm, the concern of course would be whether the small intestine itself had the abnormality. Memo Mak MD JM/MODL /[id number] cc: MD Farideh Shannon PA-C Copies: CASEY MOREL MD, CHLOE K PA-C ~ Electronically Signed By: MEMO MAK MD 04/03/20 1029 PATIENT NAME: JAMES GENTILE FAMILIA OPERATIVE REPORT DATE OF : 43 REPORT #: [id number] PHYSICIAN: MEMO MAK MD PCP: FARIDEH SEGUNDO PA-C REPORT IS CONFIDENTIAL AND NOT TO BE RELEASED WITHOUT AUTHORIZATION
--- NOTE | 2020-04-03 11:20 | PATH ---
[facility] [address] [place], [place] [address] Signed SPECIMEN(S): A ANTRUM/PYLORUS SPECIMEN(S): B LOWER ESOPHAGUS SPECIMEN(S): C MIDDLE ESOPHAGUS SPECIMEN SOURCE: A. ANTRUM/PYLORUS B. LOWER ESOPHAGUS C. MIDDLE ESOPHAGUS CLINICAL HISTORY: Anemia. Post-op: Normal. MICROSCOPIC DESCRIPTION: Histologic sections of all submitted blocks are examined by light microscopy. These findings, together with the gross examination, support the pathologic diagnosis. FINAL PATHOLOGIC DIAGNOSIS: A. Stomach, antrum, biopsy: - Antral mucosa with chronic, inactive gastritis. - Negative for Helicobacter organisms on HE stain. - Negative for dysplasia or malignancy. B. Esophagus, lower, biopsy: - Squamous mucosa with mild chronic inflammation, suggestive of reflux esophagitis. - Negative for intestinal metaplasia, dysplasia, or malignancy. C. Esophagus, middle, biopsy: - Squamous mucosa with minimal chronic inflammation. - Negative for intestinal metaplasia, dysplasia, or malignancy. NAL:cml:C2NR GROSS DESCRIPTION: Three specimens are received in three containers, labeled "Mikaelarandell Sintia Ann." A. The specimen, labeled "Sintia Fox Familia, 1," and designated on the requisition "antrum/pylorus," is received in formalin and consists of one morrison soft tissue fragment that measures 0.5 cm in greatest dimension. The specimen is entirely submitted in cassette (A1). B. The specimen, labeled "Sintia Fox, 2," and designated on the requisition "lower esophagus," is received in formalin and consists of one white-morrison soft tissue fragment that measures 0.4 cm in greatest dimension. The specimen is entirely submitted in cassette (B1). C. The specimen, labeled "Sintia Fox, 3," and designated on the PATIENT NAME: SITNIA FOX PATHOLOGY DATE OF : 43 REPORT #: [id number] PHYSICIAN: SUNITHA PATHOLOGY PCP: KATHIE SEGUNDO PA-C REPORT IS CONFIDENTIAL AND NOT TO BE RELEASED WITHOUT AUTHORIZATION [facility] [address] [place], [place] [address] Signed requisition "middle esophagus," is received in formalin and consists of one morrison soft tissue fragment that measures 0.4 cm in greatest dimension. The specimen is entirely submitted in cassette (C1). FB (under the direct supervision of a pathologist) The Gross Description was prepared using a voice recognition system. The report was reviewed for accuracy; however, sound-alike word errors, addition and/or deletions may occur. If there is any question about this report, please contact Client Services. PERFORMING LABORATORY: The technical component was performed by [employer], [address] [place] [address] (Voucher Examiner: Lia Hubbard MD; CLIA# [id number]). [facility], [address] [place] [address] (CLIA# [id number]). Diagnostician: Marielos Pichardo MD Pathologist Electronically Signed 04/03/2020 Copies: ~ PATIENT NAME: SINTIA FOX FAMILIA PATHOLOGY DATE OF : 43 REPORT #: [id number] PHYSICIAN: SUNITHA PATHOLOGY PCP: KATHIE SEGUNDO PA-C REPORT IS CONFIDENTIAL AND NOT TO BE RELEASED WITHOUT AUTHORIZATION
--- NOTE | 2020-04-03 18:28 | OR ---
[facility] [address] [place], [place] [address] Signed DATE OF OPERATION: 03/30/2020 SURGEON: Memo Mak MD PREOPERATIVE DIAGNOSES: 1. Anemia (hematocrit 22.8), unknown etiology. 2. Upper abdominal pain. POSTOPERATIVE DIAGNOSIS: Normal upper endoscopy. PROCEDURE PERFORMED: Esophagogastroduodenoscopy with biopsy. ANESTHESIA: Intravenous sedation, propofol infusion; Memo Hill CRNA. INDICATIONS: This 74-year-old white woman was admitted to the hospital by Dr. Morel, having been admitted through the emergency room on March 28, 2020. She is noted to have a hematocrit of only 22.8. She is noted to have vague abdominal pain yesterday, upper abdominal pain and today more in the right lower quadrant. She has had multiple admissions for small-bowel obstruction in the past, conservatively managed. She underwent upper endoscopy and colonoscopy by me showing diverticulosis, but no other abnormality in May and in February of 2018. Although, she has had no hematemesis, her anemia is of uncertain etiology. An upper endoscopy has been recommended. The risk of bleeding, infection, and perforation were reviewed with her. She understands and wished to proceed. FINDINGS: The esophagus, stomach, and duodenum were normal. There was no lesion to account for anemia. DESCRIPTION OF PROCEDURE: The patient was brought to the endoscopy suite and placed in lateral decubitus position, given topical lidocaine anesthesia. She was given intravenous sedation to a point of slurred speech and nystagmus with full cardiopulmonary monitoring by the recovery auditor. A bite block was placed. An Olympus video upper endoscope was passed in the hypopharynx. The vocal cords appeared normal. The scope was advanced to the esophagus and throughout its length, it was normal. Scope was passed to the stomach, which was insufflated with Electronically Signed By: MEMO MAK MD 04/03/20 1828 PATIENT NAME: JAMES GENTILE OPERATIVE REPORT DATE OF : 43 REPORT #: [id number] PHYSICIAN: EMMO MAK MD PCP: KATHIE SEGUNDO PA-C REPORT IS CONFIDENTIAL AND NOT TO BE RELEASED WITHOUT AUTHORIZATION [facility] [address] [place], [place] [address] Signed air. Rugal folds were normal. There was one small minimal polyp of no concern noted. The pylorus was normal. Scope was passed through into the duodenum. Biopsies were obtained of the duodenum to assess for celiac disease, which could account for anemia. The scope was withdrawn. A biopsy was then taken of the antrum for both TOM and pathologic testing. Retroflexed view was undertaken showing a good flap valve overall. The scope was straightened withdrawn to the distal esophagus, where biopsies were obtained and subsequent biopsies of the mid esophagus. The scope was removed. The patient was taken to the recovery room in good condition. CONCLUDING DIAGNOSIS: Essentially normal upper endoscopy. PLAN: We will prep the patient to anticipate colonoscopy tomorrow. MD DYLAN Fan/MAXIMILIANO /[id number] cc: YARITZA Salgado MD Copies: KATHIE SEGUNDO PA-C, CYNTHIA MD ~ Electronically Signed By: MEMO MAK MD 04/03/20 1828 PATIENT NAME: JAMES GENTILE FAMILIA OPERATIVE REPORT DATE OF : 43 REPORT #: [id number] PHYSICIAN: MEMO MAK MD PCP: KATHIE SEGUNDO PA-C REPORT IS CONFIDENTIAL AND NOT TO BE RELEASED WITHOUT AUTHORIZATION
--- NOTE | 2020-04-03 18:28 | CONS ---
[facility] [address] [place], [place] [address] Signed DATE OF CONSULTATION: 03/29/2020 CONSULTING PHYSICIAN: Memo Mak MD REQUESTING PHYSICIAN: Aline Morel MD PROBLEM: Anemia and vague upper abdominal pain. HISTORY OF PRESENT ILLNESS: This 74-year-old white woman was admitted by Dr. Morel, having been evaluated in the emergency room by Dr. Martines with findings of vague abdominal pain, but also with known history of recurrent small-bowel obstruction and findings on lab studies, which included anemia with hematocrit of only 22.8. She has had no associated hematemesis or blood per rectum. She has not had any anemia problem in the past. She has had admission for small-bowel obstruction, which has been conservatively managed last in August of 2019. She has undergone upper endoscopy and colonoscopy by me, noting diverticulosis but no neoplasm or other problem. Colonoscopy by me was noted on May 14, 2018. Upper endoscopy was performed on March 02, 2018. At that time, she had cervical dysphagia and a known hiatal hernia. There was no evidence on endoscopy of stricture, hiatal hernia and stomach and duodenum were normal. PAST MEDICAL HISTORY: Includes several small-bowel obstructions in the past. She has had hysterectomy and bladder sling repair as well as vaginal wall repair. She has hypothyroidism, hypertension, gastroesophageal reflux, and longstanding cervical dysphagia. SOCIAL HISTORY: She is . She is accompanied by her today while in the hospital. She lives in [place], [place]. REVIEW OF SYSTEMS: She denies any shortness of breath or chest pain. She has no hematemesis or blood per rectum. Denies dysuria. Has no vaginal bleeding. Denies any chest pain or shortness of breath. PHYSICAL EXAMINATION: GENERAL: This is a pleasant white woman, who looks to be in no distress at this time. Electronically Signed By: MEMO MAK MD 04/03/20 1828 PATIENT NAME: JAMES GENTILE CONSULTATION DATE OF : 43 REPORT #: [id number] PHYSICIAN: MEMO MAK MD PCP: KATHIE SEGUNDO PA-C REPORT IS CONFIDENTIAL AND NOT TO BE RELEASED WITHOUT AUTHORIZATION [facility] [address] [place], [place] [address] Signed She has had 1 unit of blood transfused. VITAL SIGNS: Temperature is 97.8, pulse is 73, blood pressure 132/64. Room air saturations 98%. NECK: Shows no thyromegaly or cervical adenopathy. Trachea is midline. CHEST: Clear. HEART: Regular. ABDOMEN: Nondistended and soft. There is no focal mass or tenderness. I detect no hernia. EXTREMITIES: Show no clubbing, cyanosis, or edema. LABORATORY STUDIES: Show a white count of 7.6; hematocrit 25.5, previously 22.8; platelets 315,000 previously 431,000. Chem profile is normal. Creatinine is 1.18, decreased from 1.61 at admission last night. Lactic acid was 0.6 last night. Calcium 9.2, magnesium 2.3. Troponin level is less than 0.01. Albumin is 4.2. A CT scan was performed last night at approximately 9:00 p.m. under the direction of Dr. Varghese Galarza showing no signs of bowel obstruction, but biliary ductal distention, which is considered stable from the past. There is radiopaque material in the distal esophagus, considered likely residual contrast through the GE junction as well as sigmoid diverticulosis without sign of inflammation. ASSESSMENT AND PLAN: The source for anemia is uncertain. She has had longstanding cervical dysphagia and no distal dysphagia. The findings on CT scan are somewhat unusual; residual contrast would suggest an obstructing lesion, though she has no clear evidence of esophageal obstruction proper. Though she has had multiple small bowel obstructions in the past, she seems to have no such finding at this time. She has had upper endoscopy and colonoscopy in the past [address] Morel requests upper endoscopy to assess for possible neoplastic change of the esophagus and other lesions that may account for her anemia. I think that is quite reasonable. I discussed this with the patient and her . The risks of bleeding, infection, and perforation related to upper endoscopy was reviewed with him. Upper endoscopy is not revealing as to the source of anemia. Consideration will be made for colonoscopy once again after bowel prep. They understand this as well. We will plan to do this today to expedite her evaluation. Memo Mak MD Electronically Signed By: MEMO MAK MD 04/03/20 1828 PATIENT NAME: JAMES GENTILE CONSULTATION DATE OF : 43 REPORT #: [id number] PHYSICIAN: MEMO MAK MD PCP: KATHIE SEGUNDO PA-C REPORT IS CONFIDENTIAL AND NOT TO BE RELEASED WITHOUT AUTHORIZATION [address] [address] Signed /MODL /[id number] cc: YARITZA Salgado MD Copies: KATHIE SEGUNDO PA-C, CYNTHIA MD ~ Electronically Signed By: MEMO MKA MD 04/03/20 1828 PATIENT NAME: JAMES GENTILE FAMILIA CONSULTATION DATE OF : 43 REPORT #: [id number] PHYSICIAN: MEMO MAK MD PCP: KATHIE SEGUNDO PA-C REPORT IS CONFIDENTIAL AND NOT TO BE RELEASED WITHOUT AUTHORIZATION
--- NOTE | 2020-04-04 12:29 | PATH ---
[facility] [address] [place], [place] [address] Signed SPECIMEN(S): A CECUM SPECIMEN SOURCE: A. CECUM CLINICAL HISTORY: Pre: Anemia, abdominal pain. Post: Diverticulosis. MICROSCOPIC DESCRIPTION: Histologic sections of all submitted blocks are examined by light microscopy. These findings, together with the gross examination, support the pathologic diagnosis. FINAL PATHOLOGIC DIAGNOSIS: Colon, cecum, biopsy: - Colonic mucosa with no histopathologic abnormality. - Negative for active, chronic, or microscopic colitis. - Negative for dysplasia or malignancy. NAL:cml:C2NR GROSS DESCRIPTION: The specimen, labeled "James Fox, #1," and designated on the requisition "cecum biopsy," is received in formalin and consists of two morrison soft tissue fragment(s) that measure 0.4 and 0.4 cm in greatest dimension. The specimen is entirely submitted in cassette (A1). FB (under the direct supervision of a pathologist) The Gross Description was prepared using a voice recognition system. The report was reviewed for accuracy; however, sound-alike word errors, addition and/or deletions may occur. If there is any question about this report, please contact Client Services. PERFORMING LABORATORY: The technical component was performed by [employer], [address] [place] [address] (Rn Nursery: Lia Hubbard MD; CLIA# [id number]). [facility], [address] [address] (CLIA# [id number]). Diagnostician: Marielos Pichardo MD Pathologist Electronically Signed 04/04/2020 PATIENT NAME: JAMES FOX PATHOLOGY DATE OF : 43 REPORT #: [id number] PHYSICIAN: SUNITHA PATHOLOGY PCP: KATHIE SEGUNDO PA-C REPORT IS CONFIDENTIAL AND NOT TO BE RELEASED WITHOUT AUTHORIZATION [address] [address] Signed Copies: ~ PATIENT NAME: JAMES FOX PATHOLOGY DATE OF : 43 REPORT #: [id number] PHYSICIAN: SUNITHA PATHOLOGY PCP: KATHIE SEGUNDO PA-C REPORT IS CONFIDENTIAL AND NOT TO BE RELEASED WITHOUT AUTHORIZATION
== END 2020-03-31 16:50 | disposition home or self-care (01) | DRG 812 ==
LOC: ED 19:38 → MS 19:39
PROVIDERS: ADMIT Internal Medicine
DX: D64.9 Anemia, unspecified (principal); N17.9 Acute kidney failure, unspecified; N39.0 Urinary tract infection, site not specified; Z20.828 Contact with and (suspected) exposure to other viral communicable diseases; R10.31 Right lower quadrant pain; G89.29 Other chronic pain; I10 Essential (primary) hypertension; E03.9 Hypothyroidism, unspecified; K21.9 Gastro-esophageal reflux disease without esophagitis; K57.30 Diverticulosis of large intestine without perforation or abscess without bleeding; Z79.82 Long term (current) use of aspirin; Z79.890 Hormone replacement therapy; Z79.891 Long term (current) use of opiate analgesic; Z79.899 Other long term (current) drug therapy
CPT/HCPCS: 36415; 36430; 74176; 74177; 80048; 80053; 81001; 83605; 83690; 83735; 84484; 85025; 86850; 86900; 86901; 86920; 87077; 87088; 87186; 93005; 93010; 99285-25; C9113; C9803; J0696; J2405; J2704; J7121; P9016

== ENCOUNTER 2020-07-01 01:59 | Inpatient (IN) | payer MEDICARE, OTHER ==
[~2020-07-01] VITALS: Ht 157.5 cm; Wt 53.5 kg
[~2020-07-01 01:59] MED LIST changes: +MAGNESIUM200 MG PO; +OMEPRAZOLE20 MG PO; +SYNTHROID75 MCG PO; +TRAMADOL HCL50 MG PO; +VITAMIN D325 MCG PO
--- OUTSIDE RECORDS SUMMARY | 2020-07-01 02:02 | XMS ---
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 E.Josesito VISIT COUNT (12 MO.) 5 JUANIS Ruiz TOTAL 5 NOTE: Visits indicate total known visits. ED/UCC VISIT TRACKING (12 MO.) 07/01/2020 02:00 JUANIS Rousseau [place] TYPE: Emergency COMPLAINT: - ABDOM PAIN 03/28/2020 19:38 JUANIS Rousseau [place] TYPE: Emergency COMPLAINT: - R SIDE PAIN 02/06/2020 11:12 JUANIS Rousseau [place] TYPE: Emergency COMPLAINT: - SORE THROAT DIAGNOSES: - Other alf (current) drug therapy - Dysphagia, unspecified - Contact with and (suspected) exposure to other viral communicable diseases - retirement (current) use of aspirin - Acute pharyngitis, unspecified - Essential (primary) hypertension 08/24/2019 00:19 JUANIS GrossZain [facility] [place] TYPE: Emergency COMPLAINT: - ABDOMINAL PAIN 08/08/2019 07:41 JUANIS DraperFinderne HZain [facility] [place] TYPE: Emergency COMPLAINT: - NAUSEA, DIZZYNESS DIAGNOSES: - Essential (primary) hypertension - Other terminal computer operator (current) drug therapy - Dizziness and giddiness INPATIENT VISIT TRACKING (12 MO.) 03/31/2020 14:01 JUANIS Rousseau OR TYPE: Medical Surgical COMPLAINT: - UTI,ANEMIA DIAGNOSES: - Right lower quadrant pain - Acute kidney failure, unspecified - Hypothyroidism, unspecified - Diverticulosis of large intestine without perforation or abscess without bleeding - Other chronic pain - retirement (current) use of opiate analgesic - Other chronic pain - Other alf (current) drug therapy - intermission coordinator (current) use of opiate analgesic - Other alf (current) drug therapy - Gastro-esophageal reflux disease without esophagitis - Hypothyroidism, unspecified - retirement (current) use of aspirin - Urinary tract infection, site not specified - Acute kidney failure, unspecified - Contact with and (suspected) exposure to other viral communicable diseases - Gastro-esophageal reflux disease without esophagitis - Diverticulosis of large intestine without perforation or abscess without bleeding - Hormone replacement therapy - Urinary tract infection, site not specified - Anemia, unspecified - Right lower quadrant pain - Hormone replacement therapy - retirement (current) use of aspirin - Essential (primary) hypertension - Contact with and (suspected) exposure to other viral communicable diseases - Essential (primary) hypertension 08/24/2019 06:59 JUANIS Rousseau OR TYPE: Medical Surgical COMPLAINT: - PARTIAL SMALL BOWEL OBSTRUCTION DIAGNOSES: - Polyosteoarthritis, unspecified - Gastro-esophageal reflux disease without esophagitis - Personal history of transient ischemic attack (TIA), and cerebral infarction without residual deficits - Hypothyroidism, unspecified - Other intestinal obstruction unspecified as to partial versus complete obstruction - Hormone replacement therapy - Hypokalemia - Essential (primary) hypertension - Urinary tract infection, site not specified - 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
[2020-07-01] MEDS ORDERED: KEFLEX500 MG PO (02:20)
--- NOTE | 2020-07-01 06:34 | NUR ---
PT ARRIVED TO THE FLOOR VIA STRETCHER, ABLE TO STAND AND TRANSFER TO THE BED WITH 1 PA. TOLERATED WELL. ADMISSION PROCESS COMPLETE. PT ORIENTED TO ROOM, POC FOR THIS SHIFT. PT DENIES FURTHER QUESTIONS OR NEEDS AT THIS TIME. NG TUBE CONNECTED TO LIWS. VS OBTAINED, WNL. CALL LIGHT EDUCATION PROVIED PT AGREES TO USE FOR NEEDS.
--- NOTE | 2020-07-01 06:53 | NUR ---
PT ADMITTED TO ROOM 113 FROM ED VIS STRETCHER , DX sbo PARTIAL. ngt L nare to LIWS, very scant amount of clear thick drainage. ALert and oriented, helps reposition, HOB elevated, c/o abd discomfort but denies needing pain meds. SL LAC patent, IVF d51/2 NS with 20meq infusing. Mouth care done by self, NPO. call light at bedside
--- NOTE | 2020-07-01 07:15 | NUR ---
BEDSIDE HANDOFF REPORT RECEIVED FROM TRANSFORMATION MANAGER RN. PT RESTING IN BED. PT DENIES NEEDS AT THIS TIME.
--- NOTE | 2020-07-01 07:49 | NUR ---
PT RESTING IN BED. PT ON ROOM AIR, LUNG SOUNDS CLEAR, DENIES SOB. PT WITH NG TUBE TO LIWS, MINIMAL OUTPUT IN TUBE. PT DENIES PAIN, DENIES NAUSEA. BOWEL TONES ACTIVE. CMS INTACT, WITHOUT EDEMA. PT WITH REDDENED AREA AND SCRATCH TO RIGHT ARM. PT ASSISTED TO BATHROOM, SBA. IV FLUIDS INFUSING AT 125ML/HR. PT DENIES OTHER NEEDS AT THIS TIME. AWAITING DR. JACKSON TO ROUND ON PT.
--- NOTE | 2020-07-01 11:27 | NUR ---
PT REQUESTIGN PAIN MEDICATION, GIVEN 0.5MG IV DILAUDID. IV FLUIDS CHANGED TO D5LR AT 100ML/HR. PROTONIX AND LOVENOX GIVEN PER ORDER. PT DENIES TOEHR NEEDS AT THIS TIME.
--- NOTE | 2020-07-01 12:45 | NUR ---
PT RESTING IN BED. PT WITH REPORT OF PAIN IMPROVED AFTER DILAUDID NOW AT A 3-11/17. TP DENIES OTHER NEEDS AT THIS TIME.
--- NOTE | 2020-07-01 14:30 | NUR ---
PT RESTING IN BED. PT PAIN IMPROVED AFTER DILAUDID, DENIES PAIN AT THIS TIME. BOWEL TONES HYPOACTIVE, DENIES NAUSEA, NG TUBE TO LIWS, SMALL AMOUNT OF CLOUDY WHITE DRAINAGE FROM TUBE. PT GIVEN VASOTEC PER ORDER. PT ASSISTED TO BATHROOM, VOIDED. PT DENIES OTHER NEEDS AT THIS TIME.
--- NOTE | 2020-07-01 17:33 | NUR ---
PATIENT IN BED WATCHING TV. B\P A LITTLE HIGH, RN NOTIFIED. CALL LIGHT IN REACH. NO FURTHER NEEDS AT THIS TIME.
--- NOTE | 2020-07-01 18:29 | NUR ---
PT ON ROOM AIR, LUNG SOUNDS CLEAR. PT NPO, NG TUBE TO LIWS, SMALL AMOUNT OF CLOUDY WATERY DISCHARGE. CMS INTACT, WITHOUR EDEMA, SCDS IN PLACE. IV FLUIDS INFUSING D5LR AT 100ML/HR. PT RECEIVED DILAUDID X1 FOR PAIN WITH GOOD RELIEF.
--- NOTE | 2020-07-01 18:55 | CONS ---
[facility] [address] [place] [address] Signed DATE OF CONSULTATION: 07/01/2020 CHIEF COMPLAINT: Epigastric abdominal pain with nausea and vomiting. HISTORY OF PRESENT ILLNESS: Sintia is a 74-year-old female, overall quite healthy. She has had a previous cholecystectomy and a laparoscopic-assisted vaginal hysterectomy. She has also had a bladder sling and repair of her vaginal wall. She has undergone upper and lower endoscopy back in [address] Rodríguez and again in March of this year. Both were negative except for some diverticulosis. She has a long history of cervical dysphagia. She also has a partial small bowel obstruction in her mid to right pelvis. She has been treated conservatively in the past and she has done well. However, she was anemic in March while here in the hospital. She did receive 2 units of packed red blood cells. Consequently, she was sent over to the GI group at [facility] for a capsule endoscopy. Her small bowel follow-through in April 2020 was unremarkable. She swallowed dissolvable capsule apparently went through fine. Consequently, they went ahead and gave her the actual capsule endoscopy Thursday of last week. Of course, we do not have any those results. She came into the emergency room after having quite a bit of epigastric abdominal pain with nausea, vomiting, and diarrhea last night. They called me at 0430 in the morning with a mildly elevated white count and a CT scan that showed this recurrent area in her small bowel in the mid pelvis. It is a bit thickened without an obvious transition point at this time. We can see the capsule endoscopy proximal to this in the right lower quadrant. However, in the left lower quadrant of small bowel, there was another foreign body comb like. We are not sure if that is bone or what. We also could see she has old diverticulosis. No evidence of any perforation. She was admitted last night and started on IV fluids and NG tube. She does feel better this morning. She is a little perplexed because she thinks the capsule endoscopy may have already passed. I explained to her it is quite obvious on the x-rays that it is in her small bowel proximal to the small bowel obstruction. She told me her has dementia and he would not be of much help. We did attempt to call her son and unfortunately he did not answer. Of course, on Thursday obtaining that report would be next one possible that we are going to try. She is hesitant to go to surgery, but she knows that may be required. She told me her actually had a capsule endoscopy did get stuck in his right mid small bowel requiring surgery and resection of the small bowel and removal of the capsule. PAST MEDICAL HISTORY: Hypertension, urinary tract infections, partial small bowel obstructions, diverticulosis, hypothyroidism, chronic cervical dysphagia, and anemia. PAST SURGICAL HISTORY: Includes the laparoscopic-assisted vaginal hysterectomy, bladder sling, vaginal wall Electronically Signed By: EZEQUIEL JACKSON MD 07/01/20 7804 PATIENT NAME: SINTIA GENTILE CONSULTATION DATE OF : 43 REPORT #: [id number] PHYSICIAN: EZEQUIEL JACKSON MD PCP: FARIDEH TODD PA-C REPORT IS CONFIDENTIAL AND NOT TO BE RELEASED WITHOUT AUTHORIZATION [facility] [address] [place] [id number] Signed repair, laparoscopic cholecystectomy, upper and lower endoscopy [place] [address] Rodríguez, and again upper and lower endoscopy in March [address] Rodríguez. SOCIAL HISTORY: She does not smoke or drink. She lives with her , Fidel at . Farideh Todd is her primary care provider, she prefers the [facility]. They live in [place], [place]. She currently is seeing one of the welder machine operator at [facility], she believes it might be Dr. Enmanuel Abarca, however, she saw his carpenter assistant installer first. FAMILY HISTORY: A brother had lymphoma. Mom smoked, ended up with lung cancer. Dad smoked and ended up dying of COPD. REVIEW OF SYSTEMS: Sintia had 10 systems reviewed. Overall, she is pretty healthy. I did review her records extensively and she has had five CT scans of the abdomen and pelvis along with her head and neck and so forth over this last year. ALLERGIES: None. MEDICATIONS: 1. Estrogen. 2. Lisinopril. 3. Amlodipine. 4. Vitamin B12. 5. Tramadol. 6. Prilosec. 7. Levothyroxine. 8. Magnesium. 9. Vitamin D3. 10. Keflex. PHYSICAL EXAMINATION: VITAL SIGNS: Blood pressure 145/70, heart rate 71, respiratory rate 16, temperature is 97.8, and 99% on room air. She is 5 feet 2 inches, 53 kg. GENERAL: Sintia is a 74-year-old female, who appears healthy and at her stated age. She is lying supine semi-recumbent in her hospital bed. She is not systemically ill or toxic. An NG tube is in place. The gastric fluid is relatively clear. LUNGS: Clear to auscultation bilaterally. HEART: Regular rate and rhythm with a 3/6 systolic ejection murmur. She has had that murmur forever. She did have an echocardiogram done in August of this year, but unable to locate that report. Electronically Signed By: EZEQUIEL JACKSON MD 07/01/20 8458 PATIENT NAME: SINTIA GENTILE CONSULTATION DATE OF : 43 REPORT #: [id number] PHYSICIAN: EZEQUIEL JACKSON MD PCP: FARIDEH TODD PA-C REPORT IS CONFIDENTIAL AND NOT TO BE RELEASED WITHOUT AUTHORIZATION [facility] [address] [place], [place] [address] Signed ABDOMEN: Soft, flat, and nontender. No palpable masses. LABORATORY DATA: Her white blood cell count 11.3, hemoglobin 10, mean cell volume 77, neutrophils 86, and platelets 306. BUN 19, creatinine 0.9. Urinalysis; negative. Liver function tests negative. Albumin 3.9. COVID test is pending. RADIOGRAPHIC STUDIES: Chest x-ray confirms NG tube was in the stomach. CT scan of abdomen and pelvis is reviewed and it shows this small bowel obstruction in the ileum and the mid to right pelvis, it was somewhat thickened. We could easily see the capsule endoscopy proximal to that in the small bowel in the right lower quadrant of the abdomen, and then in the left lower quadrant abdomen, there was a comb like foreign body in her small bowel of unclear etiology. Of course, she has some diverticulosis. ASSESSMENT/PLAN: Sintia is a 74-year-old female, who is here now with, had another episode of her small bowel obstruction. Consequently, the capsule endoscopy is stopped in the small bowel in the right lower quadrant proximal to this obstruction. There was a second foreign body in her small bowel, we were not sure what the etiology that is. She cannot recall swallowing any bone or anything else might be in her small bowel. We had a long discussion regarding her current situation, more than likely this is going to require surgery. Of course, her COVID test is currently pending, that could take 24-48 hours. In the meantime, she is very hesitant to have surgery, although she is well aware from myself and others that she might need surgery with this recurring small bowel obstruction. She is well aware from her 's history that if the capsule endoscopy is not able to pass, she is going to need surgery as well. In the meantime, we did try to contact her son and left a short message. We will also contact the GI department at [facility] and see if we can track down any official report of that capsule, although it has not passed completely through her small bowel in her colon at this point. In the meantime, we will treat her conservatively with her NG tube decompression, IV fluids. We will have her medical service see her for some of her chronic medical issues as well. She has expressed understanding and agrees with the above plan. Ezequiel Jackson MD ALB/MODL /[id number] Electronically Signed By: EZEQUIEL JACKSON MD 07/01/20 1855 PATIENT NAME: SINTIA GENTILE CONSULTATION DATE OF : 43 REPORT #: [id number] PHYSICIAN: EZEQUIEL JACKSON MD PCP: FARIDEH TODD PA-C REPORT IS CONFIDENTIAL AND NOT TO BE RELEASED WITHOUT AUTHORIZATION [address] [address] Signed cc: MD Farideh Cardozo PA-C Andrew L Bower, MD Copies: Enmanuel Abarca MD, CHLOE K PA-C BOWER, ANDREW L MD ~ Electronically Signed By: EZEQUIEL JACKSON MD 07/01/20 1855 PATIENT NAME: SINTIA GENTILE FAMILIA CONSULTATION DATE OF : 43 REPORT #: [id number] PHYSICIAN: EZEQUIEL JACKSON MD PCP: FARIDEH TODD PA-C REPORT IS CONFIDENTIAL AND NOT TO BE RELEASED WITHOUT AUTHORIZATION
--- NOTE | 2020-07-01 19:16 | NUR ---
ANSWERED PATIENT'S CALL LIGHT SHE SAID SHE CAN TO USE THE BATHROOM. SO I AM WAITING FOR HER TO GET DONE.
--- NOTE | 2020-07-01 19:54 | NUR ---
HOB ELEVATED, NGT L NARE PATENT TO ILWS, DRAINING CLEAR THICK DRAINAGE. IVF INFUSING LAC. SCDS IN PLACE, NO C/O N/V OR PAIN. COOP WITH ASSESSMENT
--- NOTE | 2020-07-01 20:10 | NUR ---
uP TO BR, VOIDED SMALL AMOUNTS CLEAR YELLOW URINE, BACK TO BED, TOLERATED WELL, NGT INTACT
--- NOTE | 2020-07-01 20:30 | NUR ---
UP TO BR, SBA, VOIDED SMALL AMOUNTS OF CLEAR YELLOW URINE, BACKA TO BED. NGT TO ILWS, IVF INFUSING. SCDS INPLACE, NO SOB, NO C/O PAIN OR SOB
--- NOTE | 2020-07-01 21:40 | NUR ---
PT UTILIZES CALL LIGHT, REQUESTS TO USE THE BATHROOM. PT ASSISTED, SBA TO BATHROOM AND BACK TO BED. PT TOLERATED WELL. PHONE PLUGGED INTO OYSTER WASHER PER PT REQUESTS. PT SHOWED HOW TO CONTROL LIGHTS SECURITY GUARD SUPERVISOR LIGHT. DEMONTRATES APPROPRIATELY. THERMOSTAT ADJUSTED WARMER. PT DENIES FURTHER NEEDS AT THIS TIME. CALL LIGHT IN REACH.
--- NOTE | 2020-07-01 22:00 | NUR ---
UP TO BR, USES CALL LIGHT APPROPRIATELY, VOIDED, BACK TO BED, NO SOB , NO CO PAIN. NGT PATENT, IVF INFUSING, SCDS IN PLACE, NPO
--- NOTE | 2020-07-01 22:31 | NUR ---
up to br, voided, bnack to bed
--- NOTE | 2020-07-01 23:39 | NUR ---
SBA TO THE BATHROOM. PATIENT IS BACK IN BED. NGT IS BACK ON. NO OTHER NEEDS AT THIS TIME.
--- NOTE | 2020-07-01 23:59 | EKG ---
[facility] [address] [place] [address] Signed Normal sinus rhythm Minimal voltage criteria for LVH, may be normal variant Borderline ECG When compared with ECG of 28-MAR-2020 20:25, No significant change was found Confirmed by MIRA SAAVEDRA MD ([id number]) on 07/01/2020 11:59:25 PM Electronically Signed By: MIRA SAAVEDRA MD 07/01/20 2359 PATIENT NAME: JAMES GENTILE FAMILIA Electrocardiogram DATE OF : 43 PHYSICIAN: MIRA SAAVEDRA MD REPORT #: [id number] REPORT IS CONFIDENTIAL AND NOT TO BE RELEASED WITHOUT AUTHORIZATION
--- NOTE | 2020-07-02 00:30 | NUR ---
CALL LIGHT ANSWERED. SBA TO THE BATHROOM AND BACK TO BED. NGT BACK ON. NO OTHER NEEDS AT THIS TIME.
--- NOTE | 2020-07-02 02:05 | NUR ---
VS TAKEN. SCHEDULED MED ADMINISTERED VIA IV PUMP. PT DENIES NEEDS. CALL LIGHT IN REACH.
--- NOTE | 2020-07-02 06:41 | NUR ---
pt states h/a and abd pain much lesser and she is not feeling as nauseated as earlier but just a little and would like the reminder of the 8mg zofran- she requested 4mg ezrlier. Secend hald dose-4mg of zofran given at this time for a total of 8mg. Pt calm awake, waiting to go to ID for abd xray. NGT patent draining thick clear drainage to ILWS, scds inplace.
--- NOTE | 2020-07-02 07:28 | NUR ---
PT UP TO THE BATHROOM, DID HER OWN ORALCARE, PT BACK TO BED, CALL LIGHT IN REACH NO OTHER NEEDS AT THIS TIME
--- NOTE | 2020-07-02 07:39 | NUR ---
THIS RN RECEIVED REPORT FROM FOREIGN SPARROW. PT APPEARS TO BE RESTING COMFORTABLY WITH RESPIRATIONS NOTED. PT IS CONNECTED TO NG TUBE AT THIS TIME
--- NOTE | 2020-07-02 08:34 | NUR ---
THIS RN IN PTS ROOM TO CHECK ON PT, GIVE HER THE MORNING MEDS AND DO MORNING ASSESSMENT. PT STATES THAT SHE HAS 8/10 PAIN. PT SITTING UP IN BED WITH CALL LIGHT WITHIN REACH. PT TALKING WITH THIS RN ABOUT HER GRANDCHILDREN THIS AM. PT COMPLIANT WITH CARE. PT STATES THAT SHE MIGHT BE GOING TO SURGERY LATER, THIS RN STATED THAT WE WILL WAIT TO SEE WHAT THE XRAY RESULTS SAY. PT HAS NO OTHER NEEDS AT THIS TIME
--- NOTE | 2020-07-02 09:20 | NUR ---
SPOKE WITH PATIENT IN ROOM. PATIENT LIVES WITH AT HOME WITHOUT STAIRS. SHE IS NORMALLY INDEPENDENT IN AMBULATION, IS RETIRED, AND DRIVES. SHE DENIES FINANCIAL WORRIES TO AFFORD MEDS, FOOD OR UTILITIES. SHE HAS PCP. SHE UNDERSTANDS SHE WILL HAVE FOLLOW UP WITH SURGEON AND PCP AFTER DISCHARGE AND CAN DRIVE OR CAN DRIVE HER THERE. SHE FEELS SAFE TO DISCHARGE HOME WHEN ABLE. CM WILL FOLLOW NEEDED.
--- NOTE | 2020-07-02 10:26 | NUR ---
THIS RN IN PTS ROOM TO START THE POTASSIUM IV FLUIDS. PT STATES THAT HER PAIN IS RESOLVED AFTER THE 1MG OF DILAUDID.
[2020-07-02] MEDS ORDERED: SYNTHROID88 MCG PO (11:45)
[2020-07-02] MEDS ORDERED: ESTRACE42.5 GM VAGINAL (11:46)
--- NOTE | 2020-07-02 11:46 | NUR ---
MED REC COMPLETE
--- NOTE | 2020-07-02 13:35 | NUR ---
THIS RN IN TO SEE PT TO CHECK ON HER. PT STATES THAT HER PAIN IS 4/10, PT STATES THAT HER PAIN IS TOLERABLE UP TO A 5/10. PT STATES THAT SHE DOESN'T NEED ANYTHING FURTHER AT THIS TIME.
--- NOTE | 2020-07-02 13:42 | NUR ---
PT RESTING IN BED, RM QUIET TV OFF. PT HAS NG TUBE, PT MENTIONED SHE IS TO HAVE POSSIBLE SURGERY THIS AFTERNOON. WAITING FOR DR JACKSON, MIRTA NOT HERE. PT EXPECTS HIM SOON. HAD PAYER WITH PT AND LEFT G.POST. WILL FOLLOW NEEDED
--- NOTE | 2020-07-02 15:00 | NUR ---
THIS RN IN PTS ROOM TO GIVE PT HER AFTERNOON MEDS. PT ASKING FOR ANOTHER 1MG OF DILUADID. PT HAS NOTHING ELSE TO REPORT AND [place] CHARGE NURSE IN TO TELL THAT PT WILL BE GOING TO SURGERY AROUND 1630. PT STATED UNDERSTANDING
--- NOTE | 2020-07-02 16:15 | NUR ---
THIS RN IN PTS ROOM TO MAKE SURE PT WAS READY FOR SURGERY. PT STATES SHE IS READY AND ALL QUESTIONS ANSWERED TO THIS RNS BEST ABILITY
--- NOTE | 2020-07-02 19:28 | NUR ---
REPORT RECEIVED FROM NICKIE RN, PT AWAKE AND ALERT IN BED. NG IN PLACE. PT REPORTS 4/10 PAIN BUT STATES "IS TOLERABLE RIGHT NOW", WILL FOLLOW UP. NO NEEDS REPORTED AT THIS TIME, CALL LIGHT IN REACH, WILL CONT TO MONITOR.
--- NOTE | 2020-07-02 20:00 | NUR ---
PT UP TO BR AND BACK TO BED. IV FLUIDS INFUSING PER ORDER. NG ON LOW INT. NO OTHER NEEDS AT THIS TIME. CALL LIGHT IN REACH.
--- NOTE | 2020-07-02 21:02 | NUR ---
SCHEDULED MEDICATIONS ADMINSTERED, ASSESSMENT COMPLETE, VS AND I/O'S COMPLETE. NG TUBE CONNECTED TO LIWS, WNL. IVF INFUSING WNL. BOWEL TONES ACTIVE. PT REPORTS NO PAIN AT THIS TIME. CALL LIGHT IN REACH, WILL CONT TO MONITOR.
--- NOTE | 2020-07-02 21:15 | NUR ---
ANSWERED CALL LIGHT. SBA TO THE BATHROOM. PATIENT INSTRUCTED TO PULL THE BATHROOM CALL LIGHT WHEN DONE AND READY TO GO BACK TO BED. PRIMARY RN Ernesto PEREZ NOTIFIED.
--- NOTE | 2020-07-02 22:26 | EKG ---
[facility] [address] [facility] [place] [address] Signed Atrial fibrillation Abnormal ECG When compared with ECG of 01-JUL-2020 18:34, Atrial fibrillation has replaced Sinus rhythm Confirmed by MIRA SAAVEDRA MD ([id number]) on 07/02/2020 10:25:53 PM Electronically Signed By: MIRA SAAVEDRA MD 07/02/20 2226 PATIENT NAME: JAMES GENTILE FAMILIA Electrocardiogram DATE OF : 43 PHYSICIAN: MIRA SAAVEDRA MD REPORT #: [id number] REPORT IS CONFIDENTIAL AND NOT TO BE RELEASED WITHOUT AUTHORIZATION
--- NOTE | 2020-07-02 23:01 | NUR ---
SCHEDULED MEDICATIONS ADMINISTERED. TELE IN PLACE. PRN PAIN MEDICATION ADMINISTERED FOR 7/10 PAIN. NG TUBE CONNECTED TO LIWS WNL. IVF INFUSING WNL. ZYGLO INSPECTOR TO ASSIST PT UP TO BR. CALL LIGHT IN REACH, NO OTHER NEEDS AT THIS TIME.
--- NOTE | 2020-07-03 00:15 | NUR ---
SCHEDULED MEDS INFUSING. PT UP TO BR TO VOID. NG TUBE WNL, LIWS. PT REPORTS 6/10 PAIN BUT STATES IT IS "IMPROVED, TOLERABLE". TELE IN PLACE, READING SINUS RHYTHM AT THIS TIME. NO OTHER NEEDS REPORTED, CALL LIGHT IN REACH.
--- NOTE | 2020-07-03 01:16 | NUR ---
ROUNDED ON PATIENT, LAYING IN BED WITH EYES CLOSED, BREATHING EVEN AND UNLABORED. IVF INFUSING WNL. CALL LIGHT IN REACH. WILL CONTINUE TO MONITOR.
--- NOTE | 2020-07-03 02:15 | NUR ---
MEDICATIONS ADMINISTERED. PATIENT SBA TO BR TO VOID. IVF INFUSING WNL. NG CONNECTED TO LIWS. PT REPORTS NO PAIN AT THIS TIME, NO NEEDS. SCD'S IN PLACE. CALL LIGHT IN REACH, WILL CONT TO MONITOR.
--- NOTE | 2020-07-03 04:40 | NUR ---
ROUNDED ON PATIENT, LAYING IN BED W EYES CLOSED, HOB ELEVATED. BREATHING EVEN, UNLABORED. NG CONNECTED TO LIWS, WNL. IVF INFUSING WNL. NO APPARENT NEEDS AT THIS TIME, CALL LIGHT IN REACH.
--- NOTE | 2020-07-03 07:14 | NUR ---
THIS RN PHONED MD TO REPORT SUSTAINED PULSE OF 130-140 BPM. MD ORDERED TO GIVE 2.5 MG METOPROLOL (SCHEDULED FOR 0800) AT THIS TIME.
--- NOTE | 2020-07-03 07:20 | NUR ---
MEDICATION ADMINSITERED PER ORDER. PT REPORTS NO SOB, NO CHEST PAIN. VSS, A+O. WILL CONT TO MONITOR.
--- NOTE | 2020-07-03 07:43 | NUR ---
PRN PAIN MEDICATION ADMINISTERED PER PATIENT REQUEST FOR BACK PAIN OF 5-6/10. NO OTHER NEEDS AT THIS TIME.
--- NOTE | 2020-07-03 07:58 | NUR ---
THIS RN RECEIVED REPORT FROM JOHANNA SPARROW. PT SITTING UP IN BED AWAKE AND HAS NO CONCERNS THIS AM
--- NOTE | 2020-07-03 08:13 | NUR ---
PATIENT RESTING IN BED. PATIENT USES THE BATHROOM. ONE PERSON ASSISTING. HANDS AND FACE WASHED. PATIENT BACKS TO BED. CALL LIGHT WITHIN REACH. NO OTHER NEEDS AT THIS TIME
--- NOTE | 2020-07-03 08:20 | NUR ---
this rn in pts room to give pt 5mg of metoprolol iv. this rn is accompanied by [facility] nursing consultant dyan.
--- NOTE | 2020-07-03 08:50 | NUR ---
this rn in pts room to give pt another dose of 5mg of lopressor per verbal standing order of due to pts hr sustaining greater than 120's. [facility] nusrsing student dyan accomapning this rn
--- NOTE | 2020-07-03 09:40 | NUR ---
Spoke tish Patricio and her Timo. She plans on going home, denies needs or concerns. States she spoke with Dr. Clements and he is deciding risk with new AFIB for surgery.
--- NOTE | 2020-07-03 09:48 | NUR ---
PATIENT SITTING UP IN BED. VITAL SIGNS OBTAINED BY STUDENT RN. VITAL SIGNS AND I&O DONE. CALL LIGHT WITHIN REACH. NO OTHER NEEDS AT THIS TIME
--- NOTE | 2020-07-03 10:10 | NUR ---
this rn in pts room to give pt dilt 2.5mg per it appears that pts rate and rythm are attempting to convert. pt has runs of afib but the rate is contlled under 100 bpm
--- NOTE | 2020-07-03 13:30 | NUR ---
PT ALERT, ORIENTED AND VISITING WITH HER MIRTA. NG TUBE STILL IN, PT MENTIONED GE[place]IE SHE WONT'T HAVE SURGERY SHE THINKS UNTIL TOMORROW. A CASE OF A-FIB HAS DEVELOPED AND BOTH DR JACKSON AND DMITRIY IS WANTING TO WAIT FOR A-FIB TO CALM. PT TAKING ALL IN STRIDE. ANDREWS FU CAME IN CONFIRMING SURGERY WILL BE TOMORROW. ANDREWS FU VERY THROUGH EXPLAINING TO PT WHY SURGERY IS TOMORROW. PT REQUESTED PRAYER, PT HAS NOT HAD A-FIB BEFORE TO HER KNOWLEDGE. WILL FOLLOW
--- NOTE | 2020-07-03 14:21 | NUR ---
PATIENT RESTING IN BED. VITAL SIGNS AND I&O OBTAINED BY STUDENT RN. VITAL SIGNS AND I&O CHARTED. CALL LIGHT WITHIN REACH. NO OTHER NEEDS AT THIS TIME
--- NOTE | 2020-07-03 18:27 | NUR ---
PATIENT IN BED RESTING AND CHATTING ON PHONE. CALL LIGHT WITHIN REACH. NO FURTHER NEEDS AT THIS TIME
--- NOTE | 2020-07-03 19:22 | NUR ---
REPORT RECEIVED FROM NICKIE SPARROW. PATIENT AWAKE AND ALERT LAYING IN BED. NGT CONNECTED TO LIWS, WNL. SCDS IN PLACE, IVF INFUSING WNL. PT REPORTS NO NEEDS AT THIS TIME. CALL LIGHT IN REACH, WILL CONT TO MONITOR.
--- NOTE | 2020-07-03 20:13 | NUR ---
CALL LIGHT ANSWERED. SBA TO RESTROOM FOR VOID AND BACK TO BED. NGT TO SUCTION. SCDS ON. CALL LIGHT IN REACH. DENIES REQUESTS AT THIS TIME.
--- NOTE | 2020-07-03 21:27 | NUR ---
SCHEDULED MEDS ADMINISTERED, IVF INFUSING WNL. ASSESSMENT COMPLETE, VITALS AND I/O'S COMPLETE. NGT CONNECTED TO LIWS, WNL. PRN PAIN MEDICATION ADMINISTERED FOR 6/10 BACK PAIN. PT STATES NEEDING TO USE RESTROOM, SPAR MACHINE OPERATOR SINTA IN ROOM TO ASSIST. WILL CONT TO MONITOR.
--- NOTE | 2020-07-03 21:30 | NUR ---
SBA TO THE BATHROOM AND BACK TO BED. SCD'S ADN NGT ARE BACK ON. NO OTHER NEEDDS AT THIS TIME.
--- NOTE | 2020-07-03 22:49 | NUR ---
ROUNDED ON PATIENT, RESTING IN BED WITH EYES CLOSED. BREATHING EVEN AND UNLABORED. NO APPARENT DISTRESS, CALL LIGHT IN REACH, WILL CONTINUE TO MONITOR.
--- NOTE | 2020-07-04 00:10 | NUR ---
ROUNDED ON PATIENT, LAYING IN BED WITH EYES CLOSED, RESPIRATIONS EVEN AND UNLABORED. CALL LIGHT IN REACH. NO APPARENT DISTRESS. WILL CONT TO MONITOR.
--- NOTE | 2020-07-04 02:09 | NUR ---
SCHEDULED MEDICATIONS ADMINISTERED. VITALS ASSESSED, ASSESSMENT COMPLETE. PT UP TO BR TO VOID. NGT CONNECTED TO LIW, WNL. IVF INFUSING WNL. VSS, A+O, PT REPORTS NO PAIN AT THIS TIME. SCDS CONNECTED. CALL LIGHT IN REACH, WILL CONT TO MONITOR.
--- NOTE | 2020-07-04 03:33 | NUR ---
CHECKED IN ON PATIENT, RESTING IN BED WITH EYES CLOSED. RR EVEN, UNLABORED. NGT LIWS WNL. IVF INFUSING WNL. CALL LIGHT IN REACH, WILL CONTINUE TO MONITOR.
--- NOTE | 2020-07-04 04:57 | NUR ---
CALL LIGHT ANSWERED, PT REQUESTS PRN BACLOFEN FOR LEG PAIN, ADMINSITERED.
--- NOTE | 2020-07-04 05:53 | NUR ---
HELPED PT TO THE BATHROOM AND BACK TO BED. VITALS AND I&OS DONE AND CHARTED. GARBAGES EMPTIED. BEDSIDE TABLE AND CALL LIGHT IN REACH. PT NEEDS NOTHING MORE AT THIS TIME.
--- NOTE | 2020-07-04 06:01 | NUR ---
SCHEDULED MEDICATIONS ADMINISTERED. VITALS AND I/O'S COMPLETE. WARM BLANKET PROVIDED, CALL LIGHT IN REACH. WILL CONT TO MONITOR.
--- NOTE | 2020-07-04 06:17 | NUR ---
PT SLEPT WELL THIS SHIFT, AMBULATES TO BR TO VOID. IVF INFUSING WNL. NG TO LIWS, WNL. PRN PAIN MEDICATION ADMINISTERED X1. SCDS IN PLACE. TELE IN PLACE, HAS REMAINED IN SR, NO SYMPTOMS OF AFIB. PT STATES THROAT IS SORE FROM NG TUBE, BUT STATES IT IS TOLERABLE. CALLS APPROPRIATELY.
--- NOTE | 2020-07-04 07:35 | NUR ---
PATIENT RESTING IN BED. WHITE BOARD UPDATED. CALL LIGHT WITHIN REACH. NO OTHER NEEDS AT THIS TIME
--- NOTE | 2020-07-04 07:37 | NUR ---
this rn recieved report from katya ramirez. pt states that she is feeling content and needs nothing this am.
--- NOTE | 2020-07-04 08:33 | NUR ---
this rn in pts room with [facility] nursing tech echo. pt willing to have student in room. pt states pain is much better this am and pt states that she is ready to go to surgery. [facility] nursing tech echo helped give meds and educate pt on each med given, pt stated understanding
--- NOTE | 2020-07-04 09:54 | NUR ---
PATIENT RESTING IN BED. VISITOR IN ROOM. VITAL SIGNS AND I&O DONE. CALL LIGHT WITHIN REACH. NO OTHER NEEDS AT THIS TIME
--- NOTE | 2020-07-04 10:00 | NUR ---
PT OFF TO SURGERY AT THIS TIME AT THIS TIME
--- NOTE | 2020-07-04 10:40 | NUR ---
Spoke with Sintia as she is leaving for surgery.
--- NOTE | 2020-07-04 13:02 | NUR ---
GAVE ENCOURAGEMENT TO PT OR STAFF WAS WHEELING HER TO SURGERY. MIRTA REMAINS IN RM. HAD PRAYER WITH MIRTA-CONCERNED FOR HIS . ORDERED LUNCH FOR HIM-WILL FOLLOW
--- NOTE | 2020-07-04 13:58 | NUR ---
07/04/20 1358 [place],Radha 1342 PT ARRIVED TO PACU WITH ORAL AIRWAY IN PLACE, RESP EVEN AND UNLABORED. VSS. 1356 PT WOKE TO TACTILE STIMULI AND ORAL AIRWAY REMOVED. PT REORIENTED TO PACU AND PT DENIES PAIN AND NAUSEA. PT EASILY FALLS BACK TO SLEEP.
--- NOTE | 2020-07-04 15:08 | NUR ---
PT ARRIVED BACK TO THE ROOM AT THIS TIME. PT IS AWAKE AND ORIENTED. PT STATES THAT HER NAUSEA IS IMPROVING. PT STATES THAT HER IS PAIN 7/10. PT HAS A MIDLINE INCSION THAT IS CLEAN/ DRY/ INTACT. PTS AT BEDSIDE AT THIS TIME
--- NOTE | 2020-07-04 16:04 | NUR ---
this rn in pts room with [facility] licensed nursing assistant echo. both staff giving pt her meds. pt appears to be resting by the time this rn left the room. respirations noted and cpox in place. pt titrated down to 1l nc
--- NOTE | 2020-07-04 17:01 | NUR ---
this rn in pts room to get # set of post opp vitals. pt appears to be resting comfortably with respirations noted. call light within reach. this rn titrated pt off of o2 due to pt being 97% on 1l, pt on cpox
--- NOTE | 2020-07-04 18:04 | NUR ---
PATIENT SLEEPING. VITAL SIGNS DONE BY RN. I&O DONE. CALL LIGHT WITHIN REACH. NO OTHER NEEDS AT THIS TIME
--- NOTE | 2020-07-04 18:28 | NUR ---
THIS RN IN PTS ROOM TO DO PTS LAST POST OPP CHECK. PT WOKE UP DUE TO HER SON CALLING HER ON HER CELL PHONE.
--- NOTE | 2020-07-04 18:29 | NUR ---
PT STATES THAT SHE HAS SOME PAIN SO THIS RN PROVIDED PT WITH 1MG OF DILAUDID.
--- NOTE | 2020-07-04 19:22 | NUR ---
REPORT RECEIVED FROM NICKIE SPARROW. PATIENT RESTING IN BED, IVF INFUSING WNL, MADE PLAN WITH PT FOR PRN MEDICATION AND DIET CHOICES. CALL LIGHT IN REACH, NO NEEDS AT THIS TIME. WILL CONT TO MONITOR.
--- NOTE | 2020-07-04 20:54 | NUR ---
ROUNDED CHARGE. pt SITTING UP IN BED EATING POPSICLE. BED ALARM PLACED PRIMARY RN STATES pt ATTEMPTING TO GET OUT OF BED, REORIENTED TO BUCIO FOR SAFETY. pt VERBALIZES UNDERSTANDING TO USE CALL LIGHT BEFORE GETTING OUT OF BED. TRAY TABLE REPOSITIONED PER REQUEST.
--- NOTE | 2020-07-04 21:21 | NUR ---
SCHEDULED MEDICATIONS ADMINISTERED, ASSESSMENT AND VITALS/I/O'S COMPLETE. IVF INFUSING WNL. MIDLINE INCISION COVERED WITH GAUZE, TAPE WITH NO DRAINAGE NOTED. SCDS IN PLACE. TELE IN PLACE, SINUS RHYTHM. PRN PAIN MEDICATION GIVEN PER PT REQUEST. REPOSITIONED IN BED, WATER REFRESHED AND POPSICLE PROVIDED. CALL LIGHT IN REACH, NO FURTHER NEEDS STATED AT THIS TIME.
--- NOTE | 2020-07-04 21:46 | NUR ---
PER PT REQUEST I HELPED HE FIND HER CALL LIGHT REMOTE. BEDSIDE TABLE AND CALL LIGHT IN REACH.
--- NOTE | 2020-07-04 22:53 | NUR ---
ROUNDED ON PATIENT, RESTING IN BED WITH EYES CLOSED, BREATHING EVEN AND UNLABORED. NO APPARENT DISTRESS OR NEEDS AT THIS TIME, WILL CONT TO MONITOR
--- NOTE | 2020-07-05 00:25 | NUR ---
ROUNDED ON PATIENT, AWAKE RESTING IN BED, STATES NO PAIN "JUST SORE", STATES NO NEEDS AT THIS TIME. CALL LIGHT IN REACH.
--- NOTE | 2020-07-05 01:40 | NUR ---
IV PUMP ALARMING, NEW BAG FLUID HUNG. PT REQUESTS PRN PAIN MEDICATION AND PRN ZOFRAN, SCHEDULED CARDIAC MEDICATIONS GIVEN AT THIS TIME. VITALS COMPLETE, ASSESSMENT COMPLETE. CALL LIGHT IN REACH, NO OTHER NEEDS AT THIS TIME.
--- NOTE | 2020-07-05 04:05 | NUR ---
CALL LIGHT ANSWERED. pt CONCERNED THAT THERE IS BLOOD IN BUCIO TUBING. LIGHTS TURNED ON, REORIENTED EASILY. DRAINING YELLOW URINE. IV ON LEFT AC INFILTRATED, D/C'D WNL. IVF INFUSING RIGHT FOREARM IV, FLUSHED WNL. PRN PAIN MEDICATION ADMINISTERED FOR 7/10 ABDOMINAL PAIN. JELLO PROVIDED REQUESTED. CALL LIGHT IN REACH.
--- NOTE | 2020-07-05 04:28 | NUR ---
ROUNDED ON PATIENT, SHE STATES SHE IS DOING WELL AT THIS TIME AND HAS NO NEEDS. WILL CONTINUE TO MONITOR.
--- NOTE | 2020-07-05 05:51 | NUR ---
CARDIAC MEDS ADMINISTERED, PATIENT TRANSFERED TO CHAIR. VITALS AND I/O'S COMPLETE. BUCIO CARE DONE. WATER REFRESHED. CALL LIGHT IN REACH, NO NEEDS AT THIS TIME.
--- NOTE | 2020-07-05 06:52 | NUR ---
THIS RN ATTEMPTED TO CALL DR JACKSON RE: LOW URINE OUTPUT FOR THIS PT. LEFT MESSAGE, WILL TRY AGAIN SOON.
--- NOTE | 2020-07-05 07:37 | OR ---
[facility] [address] [place], [place] [address] Signed DATE OF OPERATION: 07/04/2020 SURGEON: Ezequiel Jackson MD PREOPERATIVE DIAGNOSES: 1. Partial small bowel obstruction in right pelvis. 2. Small bowel foreign bodies x2. POSTOPERATIVE DIAGNOSES: 1. Small bowel hypertrophic submucosal webs/bands. 2. Small bowel foreign bodies x2 with capsule endoscopy and paper wrapper (1 x 2 cm). PROCEDURE: 1. Small bowel resection x2 with stapled nens-us-xsko anastomosis, 18-24 inches proximal to ileocecal valve. FINDINGS: Sintia has her appendix remaining in place. She had no adhesions in the pelvis or along the small bowel. She clearly had several submucosal hypertrophic bands in the ileum, which cause the two foreign bodies to partially obstruct. INDICATIONS: Sintia is a 74-year-old female, who has had previous abdominal surgery to include a laparoscopic-assisted vaginal hysterectomy many years ago with bladder sling and vaginal wall repair. She has also had her gallbladder removed. I first met her in August of this year with a partial small bowel obstruction in the right mid-pelvis. After a day or two of conservative treatment, it resolved and was discharged home. She came back in March of this year with anemia and upper and lower endoscopy was unremarkable. She just had upper and lower endoscopy back in 2017. She was sent for consideration of capsule endoscopy. A small-bowel follow-through was unremarkable. She was given a pseudo capsule to swallow. They felt like that went fine, so she was given the actual capsule to swallow. Unfortunately, she developed abdominal distention with nausea and vomiting. She was then readmitted to the hospital. In review, she has had at least five CT scans of abdomen and pelvis this year. She has had other x-rays and so forth as well. We could see the capsule endoscopy without question. Then distal the ileum was a foreign body in a saw tooth shape. In the end that proved to be a tubular piece of paper, probably from the pseudo-capsule and it was compressed in the Lao fashion given the saw tooth look on the CT scan. Of course, she cannot see that on the plain films. She was initially hesitant to have her surgery on Thursday. I got called away for other surgeries that day. We were going to do her on Thursday and again I got called to Electronically Signed By: EZEQUIEL JACKSON MD 07/05/20 0737 PATIENT NAME: SINTIA GENTILE OPERATIVE REPORT DATE OF : 43 REPORT #: [id number] PHYSICIAN: EZEQUIEL JACKSON MD PCP: FARIDEH SEGUNDO PA-C REPORT IS CONFIDENTIAL AND NOT TO BE RELEASED WITHOUT AUTHORIZATION [facility] [address] [place], [place] [address] Signed the emergency room for a very ill patient. We hope to do her surgery on Thursday and she went into atrial fibrillation that night and had to be treated with diltiazem and Lopressor IV, the heart rate varying between 60 and 140. We gave her a day for medical treatment of the atrial fibrillation and by the following morning today, she went back into normal sinus rhythm. Heart rate in the 60s and blood pressure is fine. I have met with Sintia and her now several times and I have talked to her son on the telephone. I explained to them the most likely issue would be an adhesion in that right mid-pelvis that we need to address. Interestingly, her had a capsule endoscope get lodged in her small bowel needed a laparotomy with resection of short pieces of the small bowel. Consequently, she and her are quite familiar with this process. I explained to Sintia we may not have to resect the small bowel, but if necessary we would certainly do that as well. We did review the nature of the surgery along with its risks including, but not limited to bleeding, infection, scarring, change in contour of the skin, anastomotic leak, incisional hernias, and other unforeseen comorbidities. She had expressed understanding and wished to proceed. DESCRIPTION OF PROCEDURE: I have met with Sintia in our preop area once again. Three consecutive days the abdominal x-ray shows the capsule endoscopy in the right mid-pelvis area. She has now had a capsule for seven days. In the meantime, I did talk to her disability liaison officer. After answering Sintia's questions, then we took her back to the operating room for surgery. She was placed in the supine position under general endotracheal tube anesthesia. A Zhu catheter was inserted with return of clear yellow urine. Her NG tube remained in place. She is on daily Lovenox now along with her SCDs in place. She was then prepped and draped in the usual sterile fashion. She was given preoperative antibiotics. A standard periumbilical incision was made and carried in the abdomen with the help of the cautery. Her bowel was decompressed as expected based on abdominal exam and her plain films. We started at the cecum and we found that she had no pelvic adhesions whatsoever. Her appendix remains in situ. We traveled retrograde along the ileum until we found this pseudo capsule, which is a tubular paper type structure. We tried to push it down through the ileum into the colon and it got hung up on in a bandlike area in the ileum. We went ahead and resected just about 3 cm of the ileum. On either side of that with the help of the linear stapler. We opened that up on the antimesenteric side and we found this foreign body along with the submucosal hypertrophic band. We then traveled more proximal and we found the capsule endoscopy. She had two additional bands that were holding up the capsule endoscopy as well. Consequently, we resected about 6-8 inches of additional ileum and again we opened that up along the antimesenteric side and found that the she had these submucosal hypertrophic bands in a ring-like fashion reminiscent of NSAID use. We used linear staplers to divide the ileum and as well as 0-Vicryl ties between pean clamps to take down the small bowel mesentery. After this, the two ends of the ileum were brought together in a uvli-ma-juym fashion with interrupted silk sutures. We opened the corners Electronically Signed By: EZEQUIEL JACKSON MD 07/05/20 0737 PATIENT NAME: SINTIA GENTILE OPERATIVE REPORT DATE OF : 43 REPORT #: [id number] PHYSICIAN: EZEQUIEL JACKSON MD PCP: FARIDEH SEGUNDO PA-C REPORT IS CONFIDENTIAL AND NOT TO BE RELEASED WITHOUT AUTHORIZATION [facility] [address] [place], [place] [address] Signed of the bowel and brought the bowel wall together with the help of the 75 mm linear stapler. The ends of the bowel were taken off with the help of the TA 30 mm stapler. We then used interrupted silk Lembert sutures to oversew the anterior staple line. This gave a palpably patent, widely patent anastomosis. We closed the small bowel mesentery with a running 0-Vicryl suture. The abdomen was irrigated and suctioned out until clear. The small bowel was returned to its position and the midline fascia was closed with interrupted [id number] #1 PDS sutures. Local anesthetic was injected in the abdominal wall. The dermis was reapproximated with interrupted 3-0 subcuticular Monocryl sutures. The skin edges were reapproximated with martin. Dry gauze and tape were applied. Her NG tube was removed and Zhu catheter was left in place. Sintia was awakened from anesthesia, extubated in the OR, and taken to recovery room in stable condition. Ezequiel Jackson MD ALB/MODL /[id number] cc: MD Farideh Ratliff PA-C Randy J Geldmacher, MD Copies: EZEQUIEL JACKSON MD, CHLOE K PA-C Geldmacher, Randy J MD ~ Electronically Signed By: EZEQUIEL JACKSON MD 07/05/20 0737 PATIENT NAME: SINTIA GENTILE [facility] OPERATIVE REPORT DATE OF : 43 REPORT #: [id number] PHYSICIAN: EZEQUIEL JACKSON MD PCP: FARIDEH SEGUNDO PA-C REPORT IS CONFIDENTIAL AND NOT TO BE RELEASED WITHOUT AUTHORIZATION
--- NOTE | 2020-07-05 07:41 | NUR ---
Sitting up in chair. Dr. Clements in to assess patient. States pain 02/16. PRN medication given.
--- NOTE | 2020-07-05 08:33 | NUR ---
Patient alert and oriented. Assessment completed. AM pain medication given this AM. Audra Rodgers Tolerated well. Call light in reach, bed rails up X2. Dressing removed by Dr. Clements. Incision approximated well, martin intact, no redness, or drainage noted.
--- NOTE | 2020-07-05 10:11 | NUR ---
RESTING IN RECLINER WITH EYES CLOSED, WAKES TO NAME. CONTINUOUS PULSE OX REMAINS IN PLACE WITH HEARTRATE 61 AND O2 SAT 97% ON ROOM AIR. CALL LIGHT IN REACH. MEDICATIONS ADMINISTERED PRESCRIBED.
--- NOTE | 2020-07-05 11:23 | NUR ---
AMBULATED IN HALLWAY WITH AIDE. WALKED IN AGDAAGUX X2 WITH STANDBY ASSIST.
--- NOTE | 2020-07-05 15:06 | NUR ---
Medications given as prescribed. Patient ambulates to bathroom with standby assist. PRN medications given for "a little nausea" and pain. Instructed to call for assist when done in bathroom.
--- NOTE | 2020-07-05 16:01 | NUR ---
PT RESTROOM CALL LIGHT ON. THIS RN TO ROOM. 1 PERSON STAND BY ASSIST BACK TO BED. PT WAS ABLE TO VOID 75ML WITHOUT ISSUE. PT BACK TO BED AND POSITIONED FOR COMFORT. O2 AT 94% ON ROOM AIR. PT REPORTS "A LITTLE SORENESS" AT HER INSICION SITE BUT DENIES NEED FOR PAIN MEDICATION. NO ADDITIONAL REQUESTS OR COMPLAINTS. CALL LIGHT WITHIN REACH. BED RAILS UP.
--- NOTE | 2020-07-05 16:52 | NUR ---
PT CALL LIGHT ON. STAND BY ASSIST UP TO RESTROOM. PT REPORTS ABDOMEN IS STILL SORE BUT "ITS TOLERABLE." PT VOIDS WITHOUT ISSUE AND PERFORMS SELF BRYCE CARE. PT BACK TO BED. O2 SATURATION ABOVE 92% ON ROOM AIR. PT POSITIONS SELF FOR COMFORT. CALL LIGHT WITHIN REACH. BED RAILS UP.
--- NOTE | 2020-07-05 19:15 | NUR ---
SHIFT REPORT RECEIVED FROM HAROLDO SPARROW. PT RESTING IN BED, WATCHING TV. IV FLUIDS INFUSING PER ORDER. PAIN 2/10 IN ABD, DENIES NEED FOR INTERVENTION. NO OTHER NEEDS. CALL LIGHT IN REACH.
--- NOTE | 2020-07-05 20:27 | NUR ---
IN RM TO GET PT BACK INTO BED AFTER VOIDING, WILL BE BACK IN RM SHORTLY TO TAKE VITALS, NO FURTHER NEEDS AT THIS TIME, WILL PROVIDE PT MORE WATER WHEN I RETURN TO THE RM
--- NOTE | 2020-07-05 21:50 | NUR ---
GETTING PT VITALS, PT BACK FROM TOILET, NOW IN BED, NOTED IV NOT RUNNING, RN INFOMED TO CHECK IT OUT, NO FURTHER NEEDS AT THIS TIME
--- NOTE | 2020-07-05 23:00 | NUR ---
IN RM TO SBA PT BACK TO BED FROM TOILET, RN JUST CAME TO RM, ASST PT TO ADJ IN BED, RN TO PROVIDE MEDS VIA NEWLY PLACED IV DUE TO PRIVOUS SITE INFILTRATION, NO FURTHER NEEDS AT THIS TIME
--- NOTE | 2020-07-05 23:04 | NUR ---
PT ASSESSMENT COMPLETED. CPOX 92%, RA. PULSE 62. GCS 15, A&O X4. LUNGS CLEAR. HEART TONES REGULAR. ABD SOFT, TENDER, PT STATES NORMAL AND "GASSY". CMS INTACT X4. INCISION OPEN TO AIR, DRY. WNL. NEW IV PLACED BY SOL SPARROW, FLUSHED WELL. SCHEDULED MEDS PROVIDED. PT PAIN 8/10, PRN PAIN MED PROVIDED. IV FLUIDS INFUSING PER ORDER. CALL LIGHT IN REACH.
--- NOTE | 2020-07-06 01:57 | NUR ---
IN TO GET PT VITALS, RN TO IN SHORTLY WITH BP MEDS, NO FURTHER NEEDS AT THIS TIME
--- NOTE | 2020-07-06 02:10 | NUR ---
ASSESSMENT, VS AND I&O COMPLETED. SCHEDULED MEDS PROVIDED. IV WNL. INCISION OPEN TO AIR, WNL, NO DRAINAGE. CMS INTACT. LUNGS CLEAR, HEART TONES REGULAR. ABD SOFT, TENDER, PT STATES NORMAL, BOWEL TONES ACTIVE. IV FLUIDS INFUSING PER ORDER. CALL LIGHT IN REACH.
--- NOTE | 2020-07-06 03:07 | NUR ---
PT STATES SHE HAS 7/10 ABD PAIN, PRN PAIN MED PROVIDED. NO OTHER NEEDS. CALL LIGHT IN REACH.
--- NOTE | 2020-07-06 06:04 | NUR ---
IN TO GIVE MEDS. pt TOLERATED WELL, MONITORED BP AND PULSE THROUGHOUT. pt UP TO VOID. WILL CALL WHEN DONE. CALL LIGHT WITHIN REACH.
--- NOTE | 2020-07-06 08:26 | NUR ---
CALL LIGHT ANSWERED. SBA TO RESTROOM FOR VOID. VERBALIZES UNDERSTANDING TO USE CALL LIGHT WHEN FINISHED.
--- NOTE | 2020-07-06 08:48 | NUR ---
PT UP TO TOILET AGAIN; CLEAR URINE OUTPUT IN LARGE QUANTITIES. BOWEL TONES ACTIVE; NO GAS REPORTED. PT REQUEST PRN PAIN MEDS FOR 7/10 PAIN IN INCISION; 1MG DILAUDID ADMINISTERED IV. MORNING MEDS ADMINISTERED; ASSESSMENT COMPLETE. TEMP ORALLY 99.2 WILL CONTINUE TO MONITOR.
--- NOTE | 2020-07-06 10:26 | NUR ---
IN ROOM FOR IV MED ADMINISTRATION. PT WAS JUST UP TO TOILET WITH SENIOR DATA SCIENTIST. PT REPORTS THAT SHE WOULD LIKE TO TAKE A NAP AT THIS TIME. AGREES TO WALK AFTER HER NAP. IVF REDUCED 75ML/HR PER DR JACKSON ORDERS. CALL LIGHT WITHIN REACH
--- NOTE | 2020-07-06 12:25 | NUR ---
PT UP TO TOILET TO VOID WITH SBA. 200ML CLEAR TO STRAW COLORED URINE. PT RETURNED TO BED. NO FURTHER NEEDS AT THIS TIME
--- NOTE | 2020-07-06 13:23 | NUR ---
call light answered. pt requests prn pain meds for abdominal pain 02/16. prn 1mg dilaudid administered. no further needs at this time.
--- NOTE | 2020-07-06 15:04 | NUR ---
CALL LIGHT ANSWERED. SBA TO TOILET TO VOID. PT'S IN ROOM.
--- NOTE | 2020-07-06 15:44 | NUR ---
CHECKED ON PT. PT SLEEPING WITH EVEN UNLABORED BREATHING. PT'S SLEEPING IN RECLINER. NO APPARENT SIGNS OF DISTRESS. CALL LIGHT WITHIN REACH
--- NOTE | 2020-07-06 15:48 | NUR ---
REPORT RECIEVED FROM ANDREWS MARTINEZ. ASSUMED CARE OF pt. pt RESTING IN BED APPEARS TO BE SLEEPING, EYES CLOSED. SPO2 WNL ON RA, CPOX ON.
--- NOTE | 2020-07-06 16:21 | NUR ---
CHECKED ON pt. RESTING IN BED WITH EYES CLOSED. BREATHING UNLABORED. SPO2 WNL ON RA.
--- NOTE | 2020-07-06 16:56 | NUR ---
CALL LIGHT ANSWERED. SBA TO RESTROOM FOR VOID AND BACK TO BED. ASSESSMENT COMPLETE. MIDLINE INCISION CDI WITH SARAH. pt RATES PAIN 7/10. PRN MEDICATION ADMINISTERED. BOWEL TONES ACTIVE X 4. CALL LIGHT IN REACH.
--- NOTE | 2020-07-06 18:10 | NUR ---
CALL LIGHT ANSWERED. SBA TO RESTROOM. ABMULATED 2 LAPS WITH SBA ON MEDICAL FLOOR. BACK IN BED. VSS. IVF INFUSING WNL. SCHEDULED IV MEDICATIONS ADMINISTERED. pt HAS NO ADDITIONAL REQUESTS. CALL LIGHT IN REACH.
--- NOTE | 2020-07-06 19:24 | NUR ---
I ASKED PATIENT IF SHE WOULD LIKE TO TAKE A SHOWER AND SHE SAID NOT TODAY SHE SAID IT IS TO COLD.
--- NOTE | 2020-07-06 19:45 | NUR ---
PT UP TO VOID, SBA WITH CPOX AND IV POLE, PT NOW BACK IN BED AT THIS TIME, WARM BLANKET PROVIDED, NO FURHTER NEEDS AT THIS TIME
--- NOTE | 2020-07-06 20:02 | NUR ---
PATIENT UP TO THE BATHROOM AT HTIS TIME, REQUIRES NO ASSISTANCE AT THIS TIME, CALL [facility] IN REACH.
--- NOTE | 2020-07-06 21:16 | NUR ---
CALL LIGHT ANSWERED, PT UP SBA TO VOID AND BACK IN BED. NO FURTHER NEEDS, CALL LIGHT IN REACH.
--- NOTE | 2020-07-06 22:00 | NUR ---
IN RM TO GET VITALS FOR RN, RN GETTING PM MEDS READY FOR PT AT THIS TIME, WILL BE IN TO ASSESS PT, PT UP TO VOID,NO FURTHER NEEDS AT THIS TIME
--- NOTE | 2020-07-06 22:00 | NUR ---
PATIENT JUST COMING BACK FROM THE BATH ROOM, AND GOT INTO BED, 6-7/10 ABD PAIN AND PATIENT GETTING 1MG IV DILAUDID, PATIENT ALSO GOT HER IV CARDIZEM AND IV METOPROLOL DIRECTED AND WITHIN VS PARAMETERS. PATIENT IS GOING TO TRY AND GET SOME SLEEP. CALL LIGHT IN REACH. NO OTHER NEDS AT THIS TIME.
--- NOTE | 2020-07-06 23:38 | NUR ---
PT UP TO VOID, BACK IN BED AT THIS TIME, NO FURHTER NEEDS
--- NOTE | 2020-07-06 23:50 | NUR ---
PATIENT RESTING QUIETLY, EYES CLOSED, RESPIRATIONS REGULAR AND EVEN, CALL LIGHT IN REACH, LIGHTS OUT.
--- NOTE | 2020-07-07 00:32 | NUR ---
PT RETURNING FROM TOILET, SBA INTO BED, NO FURTHER NEEDS AT THIS TIME
--- NOTE | 2020-07-07 02:01 | NUR ---
PATIENT JUST GOT UP TO THE BATHROOM WITH 1PSBA AND VOIDED 250MLS AND WENT BACK TO BED, PATIENT'S PAIN IS GONE AND SHE IS DOING WELL AND GOING BACK TO SLEEP. CALL LIGHT IN REACH.
--- NOTE | 2020-07-07 03:08 | NUR ---
PATIENT JUST HAD 1MG IV DILAUDID FOR 8/10 ABD PAIN, AND IS UP A SECONG TIME IN AN HOUR TO THE BATHROOM TO VOID. IV BLOOD PRESSURE MEDS GIVEN ORDERED AND WITHIN SAFETY VS PARAMETERS AND PATIENT TOLERATED THEM FINE. PATIENT GOING BACK TO BED TO TRY AND GO TO SLEEP.
--- NOTE | 2020-07-07 05:21 | NUR ---
PATIENT HAS GOTTEN 1MG IV DILAUDID X2 TONIGHT FOR ABD PAIN AND PAIN RELIEVED WITH THIS DOSE. PATIENT HAS DONE WELL WITH IV B/P MEDS AND HAS HAD NO ADVERSE SIDE EFFECTS. PATIENT HAS BEEN UP TO THE BATHROOM EVERY HOUR TO HALF AN HOUR ALL NIGHT LONG AND IS NOT TAKING IN MUCH PO FLUID BECAUSE SHE IS AFRAID SHE WILL HAVE TO URINATE MORE OFTEN. IV REMAINS RUNNING AT 75MLS/HR. PATIENT HOPING TO HAVE THAT DC'D TODAY. PATIENT RESTING AT THIS TIME. CALL LIGHT IN REACH.
--- NOTE | 2020-07-07 07:28 | NUR ---
SHIFT REPORT FROM NURSE PHILLIPS. PT GETTING UP TO TOILET WITH CANDY SPREADER. WILL ROUND AGAIN SOON.
--- NOTE | 2020-07-07 07:47 | NUR ---
PATIENT SITTING UP IN BED. WHITE BOARD UPDATED. PATIENT COMPLAINS BECAUSE SHE COULDN'T SLEEP LAST NIGHT BECAUSE SHE HAD TO USE THE BATHROOM EVERY HALF HOUR AND SHE WOULD LIKE THE DOCTOR TO DECREASE HER IV FLUIDS. RN NOTIFIED. CALL LIGHT WITHIN REACH. NO OTHER NEEDS AT THIS TIME
--- NOTE | 2020-07-07 08:15 | NUR ---
CALL LIGHT ANSWERED. PATIENT USING THE BATHROOM. PATIENT BACKS TO BED. ONE PERSON ASSISTING. CALL LIGHT WITHIN REACH. NO OTHER NEEDS AT THIS TIME
--- NOTE | 2020-07-07 08:25 | NUR ---
IN ROOM FOR FIRST ROUND OF MORNING MEDS. PT UP TO TOILET AGAIN TO VOID. PT EXPRESSES EXHAUSTION AT GETTING UP SO FREQUENT TO TOILET. BOWEL TONES HYPOACTIVE TO ACTIVE. CALL LIGHT WITHIN REACH
--- NOTE | 2020-07-07 10:05 | NUR ---
PATIENT RESTING IN BED. VITAL SIGNS AND I&O DONE. CALL LIGHT WITHIN REACH. NO OTHER NEEDS AT THIS TIME
--- NOTE | 2020-07-07 10:39 | NUR ---
CALL LIGHT ANSWERED. PATIENT SITTING UP IN BED. PATIENT USES THE BATHROOM. ONE PERSON ASSISTING. PATIENT BACKS TO BED. CALL LIGHT WITHIN REACH. NO OTHER NEEDS AT THIS TIME
--- NOTE | 2020-07-07 10:43 | NUR ---
IN ROOM TO GIVE NEW ORDER MEDS. PT WAS JUST UP TO TOILET TO VOID. PT INFORMED THAT WE WILL NEED A URINE SAMPLE FOR U/A. NEW PILLOW PROVIDED; NO FURTHER NEEDS AT THIS TIME.
--- NOTE | 2020-07-07 11:39 | NUR ---
PATIENT USING THE BATHROOM. PATIENT BACKS TO BED. URINE SAMPLE WAS SENT TO THE LAB. CALL LIGHT WITHIN REACH. NO OTHER NEEDS AT THIS TIME
--- NOTE | 2020-07-07 13:14 | NUR ---
PATIENT RESTING IN BED. IN ROOM. VITAL SIGNS AND I&O DONE. CALL LIGHT WITHIN REACH. NO OTHER NEEDS AT THIS TIME
--- NOTE | 2020-07-07 13:55 | NUR ---
CALL LIGHT ANSWERED. PATIENT ASKS FOR PAIN MEDS, SHE SAID HAD CRAMPS AFTER EATING. RN NOTIFIED. CALL LIGHT WITHIN REACH. NO OTHER NEEDS AT THIS TIME
--- NOTE | 2020-07-07 14:02 | NUR ---
PT ATE 50% OF MASHED POTATOES AND GRAVEY, DENIES NAUSEA BUT C/O INCREASED ABD CRAMPING NOW, REQUESTING PAIN MEDICATION. DILAUDID GIVEN. IN ROOM. CALL LIGHT IN EASY REACH.
--- NOTE | 2020-07-07 14:53 | NUR ---
CALL LIGHT ANSWERED. PATIENT USING THE BATHROOM. IN ROOM. PATIENT BACKS TO BED. PATIENT'S HEART RATE IS BETWEEN 120 AND 139. RN NOTIFIED. CALL LIGHT WITHIN REACH. NO OTHER NEEDS AT THIS TIME
--- NOTE | 2020-07-07 14:55 | NUR ---
PT WAS UP TO TOILET; PROCESS ENGINEERING TECHNICIAN REPORTED THAT PT HR WAS UP TO 130S OR HIGHER UPON RETURNING TO BED. THIS NURSE AUSCILATED HEART AND FOUND IRREGULAR RYTHYM. RECHECKED BY CHARGE NURSE. CALL IN TO DR KING; NEW TELE ORDERS. NEW ORDERS FOR PO CARDIZEM.
--- NOTE | 2020-07-07 17:24 | NUR ---
PATIENT RESTING IN BED. VITAL SIGNS AND I&O DONE. CALL LIGHT WITHIN REACH. NO OTHER NEEDS AT THIS TIME
--- NOTE | 2020-07-07 18:12 | NUR ---
CALL LIGHT ANSWERED. PATIENT USING THE BATHROOM. PATIENT AMBULATING IN THE HALLWAY. ONE PERSON ASSISTING. PATIENT BACKS TO BED. CALL LIGHT WITHIN RECH. NO OTHER NEEDS AT THIS TIME
--- NOTE | 2020-07-07 19:17 | NUR ---
RECEIVED REPORT FROM ANDREWS MARTINEZ. pt RESTING IN BED. REQUESTED PRN PAIN MEDICATION, JUAN TO GIVE (SEE MAR). WHITEBOARD UPDATED. CALL LIGHT WITHIN REACH.
--- NOTE | 2020-07-07 19:54 | NUR ---
PT GOING IN AND OUT OF AFIB RVR. SPEAKING UNIT ASSEMBLER IN ROOM TAKING VITALS AND ADMINISTERING PO RATE CONTROL MEDS (SEE EMAR). CALLED AND UPDATED DR KING. ORDERS RECIEVED (SEE EMAR).
--- NOTE | 2020-07-07 20:09 | NUR ---
NOTED HR IN 130'S ON TELEMETRY UNIT. IN TO ASSESS. pt REPORTED "I FELT A LITTLE FLUTTER IN MY HEART RIGHT BEFORE YOU CAME IN." VITALS TAKEN. PO MEDICATION GIVEN (SEE OCT). TALKED TO CCU ANDREWS MICHAEL, ACKNOWLEDGED NEW ORDERS. IN TO PUSH IV MED (SEE OCT). VITALS TAKEN. DR KING IN ROOM TO DISCUSS AFIB WITH pt.
--- NOTE | 2020-07-07 20:18 | NUR ---
ASSESSMENT DONE. INCISION CDI, SARAH NOTED, EDGES WELL APPROXIMATED. BOWEL TONES ACTIVE. pt REPORTS PAIN IS "BETTER" WILL CALL WHEN SHE NEEDS PAIN MEDICATION. NO FURTHER REQUESTS AT THIS TIME. CALL LIGHT WITHIN REACH.
--- NOTE | 2020-07-07 22:41 | NUR ---
ROUNDED ON pt. UP TO VOID. CALL LIGHT WITHIN REACH.
--- NOTE | 2020-07-07 22:48 | NUR ---
PT WAS UP TO VOID, CALLED TO SAY SHE WAS DONE, PT TUCKED IN BED AT THIS TIME, NO FURTHER NEEDS OK THIS TIME
--- NOTE | 2020-07-08 00:15 | NUR ---
CALL LIGHT ON. pt REPORTED "I FEEL LIKE I NEED TO PASS GAS BUT NOTHING IS COMING" UP AMBULATING IN MONROY X3 LAPS. REPLACED BED TO FACILITATE MOVEMENT IN AND OUT OF BED. VOIDED. BACK TO BED WITHOUT ASSISTANCE. CALL LIGHT WITHIN REACH.
--- NOTE | 2020-07-08 01:38 | NUR ---
NOTED A BRIEF MOMENT OF RVR ON TELE. IN TO ASSESS. pt RESTING WITH EYES CLOSED, RESPIRATIONS REGULAR. WOKE TO VOICE. BP AND HR WITHIN PARAMETERS. ORAL MED GIVEN (SEE MAR). pt UP TO VOID. BACK TO BED. CALL LIGHT WITHIN REACH. ASSESSMENT DONE. ABD MILDLY DISTENDED. BT ACTIVE.
--- NOTE | 2020-07-08 02:15 | NUR ---
IN ROOM TO ANSWER CALL LIGHT. PT REPORTING OF DISCOMFORT TO SIDE. PRIMARY RN LILLIAN MADE AWARE. WARM BLANKET PROVIDED BY [facility].
--- NOTE | 2020-07-08 02:18 | NUR ---
IN TO PROVIDE PT WITH WARM BLANKET PER RN
--- NOTE | 2020-07-08 02:27 | NUR ---
PRN PAIN MEDICATION PROVIDED FOR 8/ PAIN. NO FURTHER REQUESTS AT THIS TIME. CALL LIGHT WITHIN REACH.
--- NOTE | 2020-07-08 03:05 | NUR ---
PT UP TO VOID, BACK IN BED AT THIS TIME, NO FURHTER NEEDS AT THIS TIME
--- NOTE | 2020-07-08 03:47 | NUR ---
ROUNDED ON pt. RESTING IN BED. REPORTED PAIN IS NOW 4/10. NO REQUESTS AT THIS TIME. CALL LIGHT WITHIN REACH.
--- NOTE | 2020-07-08 06:56 | NUR ---
pt WOKE TO VOICE. VITALS DONE. pt UP INDEP TO VOID AND DO AM CARES. BACK TO BED. MEDICATION GIVEN (SEE MAR). PROVIDED FRESH WATER AND A WARM BLANKET. NO FURTHER REQUESTS AT THIS TIME. CALL LIGHT WITHIN REACH.
--- NOTE | 2020-07-08 06:57 | NUR ---
pt RESTED LITTLE DURING SHIFT. REQUIRED IV CARDIAC MEDS AT BEGINNING OF SHIFT FOR AFIB. NO GAS PASSED. AMBULATED IN HALLS. ABLE TO MOVE IN AND OUT OF BED INDEPENDENT WITH NEW BED. IVF. VOIDING LARGE QUANTITIES. PAIN CONTROLLED WITH PRN X2. USES CALL LIGHT APPROPRIATELY.
--- NOTE | 2020-07-08 07:59 | NUR ---
REPORT RECEIVED PT AWAKENS TO VOICE. AGREES SHE SLEPT WELL DENIES DISCOMFORTS. UP TO EDGE OF BED FOR MORNING MEAL, STATES CHAIR IS UNCOMFORTABLE TO HER. DISCUSSED PLAN FOR TODAY PT AGREES TO AMBULATE SEVERAL TIMES THIS SHIFT, WILL REPORT ANY NEEDS FOR PAIN CONTROL, AND GO SLOWLY ON THE FULL LIQUIDS. OTHER QUESTIONS OR CONCERNS DENIED
--- NOTE | 2020-07-08 09:28 | NUR ---
DR ASKED THIS RN TO GIVE PRN METOPROLOL AND ADDITIONAL DOSE OF CARDIZEM. ADMINISTERED, PT TOLERATED WELL.
--- NOTE | 2020-07-08 09:33 | NUR ---
PATIENT RESTING IN BED. RN IN ROOM. VITAL SIGNS AND I&O DONE. CALL LIGHT WITHIN REACH. NO OTHER NEEDS AT THIS TIME
--- NOTE | 2020-07-08 09:52 | NUR ---
DR JACKSON IN TO SEE PT ORDERS WRITTEN. PT HEART RATE GETS TACHY AGAIN, DR KING WRITES ORDERS FOR CORRECTION. PT UP TO AMBULATE THE MONROY TOLERATES 3 ROUNDS RETURNS TO REST IN HER ROOM
--- NOTE | 2020-07-08 14:23 | NUR ---
PT UP AND AMBULATES THE MONROY 3 LAPS WELL TOLERATED. RETURNS TO ROOM TO MEET WITH P/T. IS PRESENT.
--- NOTE | 2020-07-08 14:36 | NUR ---
REPORTED PT HE AND BP TO DR KING HE AGREES HOLD DILTIAZEM DOSE AT THIS TIME
--- NOTE | 2020-07-08 17:44 | NUR ---
PT RESTING IN BED, HAS GONE HOME. SHE HAS AMBULATED THE HALLS SEVERAL TIMES THIS SHIFT. TOLERATING SMALL AMOUNTS OF REGULAR SOFT FOOD ITEMS NO C/O.
--- NOTE | 2020-07-08 19:10 | NUR ---
REPORT RECEIVED FROM FABRIZIO SPARROW, PT CURRENTLY ON PHONE. ON TELE #9, IN SR. WILL CONT TO MONITOR.
--- NOTE | 2020-07-08 19:52 | NUR ---
SCHEDULED MEDICATIONS ADMINISTERED, ASSESSMENT COMPLETE, VITALS AND I/O'S COMPLETE. TELE IN PLACE, MONITORED CLOSELY AT THIS TIME.
--- NOTE | 2020-07-08 20:24 | NUR ---
HR SUSTAINED ABOVE 120, PER CCU. IV MEDS GIVEN (SEE MAR). pt DENIES HEART PALPATATIONS, LIGHTHEADEDNESS, OR DIZZYNESS. pt UP TO VOID AND BACK TO BED, HR IN THE 80'S. pt REPORTS "I FEEL FINE." RESTING IN BED. CALL LIGHT WITHIN REACH.
--- NOTE | 2020-07-08 20:40 | NUR ---
UPDATED MD ON pt CONDITION. NO NEW ORDERS AT THIS TIME.
--- NOTE | 2020-07-08 20:52 | NUR ---
PRN PAIN MEDICATION ADMINISTERED. VITALS REASSESSED, SEE CHART. TELE IN PLACE, HR MAINTAINED IN 60'S RANGE, PT HAVING NO SYMPTOMS. PT HAS NO OTHER NEEDS AT THIS TIME. CALL LIGHT IN REACH, WILL CONT TO MONITOR.
--- NOTE | 2020-07-08 21:07 | NUR ---
ROUNDED CHARGE. PRIMARY RNS IN ROOM ADMINISTERING MEDICATIONS. pt HAS NO CONCERNS AT THIS TIME, TALKING ABOUT WALK THIS EVENING, PASSING GAS. RNS REMAIN IN ROOM.
--- NOTE | 2020-07-08 21:30 | NUR ---
CALL LIGHT ANSWERED. SBA TO RESTROOM. VERBALIZES INSTRUCTION TO USE CALL LIGHT WHEN FINISHED.
--- NOTE | 2020-07-08 21:35 | NUR ---
CALL LIGHT ANSWERED. SBA BACK TO BED FROM RESTROOM. CALL LIGHT AND PERSONAL SUPPLIES IN REACH. NO REQUESTS.
--- NOTE | 2020-07-08 22:30 | NUR ---
CALL LIGHT ON. pt REQUESTED DOOR BE CLOSED, NO FURTHER REQUESTS AT THIS TIME. CALL LIGHT WITHIN REACH.
--- NOTE | 2020-07-08 23:09 | NUR ---
ROUNDED ON PATIENT, AWAKE AND ALERT IN BED READING. PT STATES PAIN IS RELIEVED POST PRN MEDICATION TO 5/10 FROM 7. STATES NO NEEDS AT THIS TIME. WILL CONTINUE TO MONITOR.
--- NOTE | 2020-07-09 01:00 | NUR ---
PRN PAIN MEDICATION ADMINISTERED, SCHEDULED CARDIZEM ADMINISTERED. PT HR AT 120, NO SYMPTOMS. BACK TO BED AFTER USING BR. NO FURTHER NEEDS AT THIS TIME, WILL CONT TO MONITOR.
--- NOTE | 2020-07-09 01:43 | NUR ---
PT HR NOW SUSTAINED IN 60'S. WILL CONT TO MONITOR
--- NOTE | 2020-07-09 03:10 | NUR ---
ROUNDED ON PATIENT, LAYING IN BED WITH EYES CLOSED, BREATHING EVEN AND UNLABORED. NO APPARENT NEEDS, CALL LIGHT IN REACH.
--- NOTE | 2020-07-09 05:34 | NUR ---
TELE SHOWS SUSTAINED HR OF 120-140, CARDIZEM IV ADMINISTERED. VSS. PATIENT DEMONSTRATING NO SYMPTOMS AT THIS TIME. VITALS AND I/O'S COMPLETE. ASSESSMENT COMPLETE. PT STATES NO NEEDS, CALL LIGHT IN REACH.
--- NOTE | 2020-07-09 06:46 | NUR ---
SCHEDULED CARDIZEM ADMINISTERED, HR RANGING FOMR 86-130 SUSTAINED. PT NOT HAVING SYMPTOMS. VS OTHERWISE STABLE, A+O, ON ROOM AIR. CALL LIGHT IN REACH, WILL CONT TO MONITOR.
--- NOTE | 2020-07-09 07:14 | NUR ---
MD PHONED FOR UPDATE RE: PT HR OVERNIGHT, MEDS GIVEN, ETC. NO NEW ORDERS RECEIVED, PRIMARY RN UPDATED.
--- NOTE | 2020-07-09 07:24 | NUR ---
PT RESTING SOUNDLY AT TIME OF REPORT. DR KING CONTACTED REGARDING VARIED HR 50'S TO 141
--- NOTE | 2020-07-09 08:01 | NUR ---
DR JACKSON IN TO SEE PT ORDERS WRITTEN. EDUCATION PROVIDED R/T ADVANCEMENT OF DIET, PT AGREES TO BE CONSERVATIVE. UP TO THE TOILET DENIES SYPTOMS OF IRREGULAR HR.
--- NOTE | 2020-07-09 08:59 | NUR ---
PT TOLERATES REGULAR FOOD FOR MORNING MEAL, DENIES PAIN OR NAUSEA. RETURNS TO RESTING SUPINE STATES SHE IS TIRED.
--- NOTE | 2020-07-09 10:10 | NUR ---
PATIENT UP TO BATHROOM, SBA. RN AND DR IN ROOM AT THIS TIME. CALL LIGHT IN REACH. NO FURTHER NEEDS AT THIS TIME.
--- NOTE | 2020-07-09 10:40 | NUR ---
Spoke with Sintia. She states she is doing well following surgery, still problems with Afib and she is symptomatic at times. Has an appt at [facility] on Thu. Asked if I would call [facility] cancel for her and reschedule, if she is unable to discharge from . A tomorrow. We discussed if she feels well enough to travel to [facility] for an appt. She states she has to as it took over two months to get scheduled for this appt..
--- NOTE | 2020-07-09 11:01 | NUR ---
DR KING IN TO SEE PT, DISCUSSED HR AND MED CHANGES. ALL QUESTIONS ANSWERED. PLANS TO CHANGE MED TO ER DITIAZEM IF HR IS STEADY ALL DAY AND NIGHT SHE WILL BE ABLE TO DC TOMORROW. DR JACKSON IN EARLIER AGREES PT IS READY FOR DC AFTER HR IS STEADY. PT VERBALIZES UNDERSTANDING AND AGREES TO THIS PLAN.
--- NOTE | 2020-07-09 12:27 | NUR ---
PT STATES SHE IS NAUSEATED AND SOMEWHAT PAINFUL IN HER LOWER ABDOMEN. REVIEWED BODY MECHANICS FOR GETTING OUT OF BED TO AVOID PULLING ABDOMINAL MUSCLES. ZOFRAN AND TYLENOL ADMINISTERED. PT WILL REST FOR A TIME THEN AMBULATE AND THEN RECONSIDER SOMETHING TO EAT. PT AGREES THIS SOUNDS LIKE A GOOD PLAN
--- NOTE | 2020-07-09 14:10 | NUR ---
PATIENT IN CHAIR, IN ROOM. FRESH WATER GIVEN. CALL LIGHT IN REACH. NO FURTHER NEEDS AT THIS TIME. WILL SHOWER LATER.
--- NOTE | 2020-07-09 14:12 | NUR ---
PT UP WALKING, OR PACING IN RM. SEEMS RATHER ANXIOUS BECAUSE OF A DR'S APPT WED. SHE MENTIONED THAT IT IS VERY HARD TO GET INTO THIS DR.SHE HOPES SHE CAN KEEP THE APPT IN TRICITIES. THANKFUL THEIR SON HENRRY IS AVAILABLE TO DRIVE THEM. HER MIRTA GETS CONFUSED EASY NOW. FEELS GOOD FROM SURGERY, HAD SOLID FOOD TODAY. A-FIB IS CAUSING PROB. PT REQUESTED PRAYER, WILL FOLLOW
--- NOTE | 2020-07-09 15:17 | NUR ---
PT AMBULATES THE MONROY 3 LAPS DENIES DIZZINESS, PALPATATIONS, SOB OR OTHER. HR INCREASES OFF AND ON BUT NO HIGHER THAN 1-TEENS. SETTLES BACK INTO THE 80'S. PT BACK TO HER ROOM TO VISIT WITH . AGREES TO SHOWER LATER THIS SHIFT
--- NOTE | 2020-07-09 17:14 | NUR ---
SHOWER WAS WELL TOLERATED PT TO BED WITH WARM BLANKETS AFTERWARD TO WARM UP. SMALL EVENING MEAL ORDERED PATIENT IS EATING WITH NO C/O NAUSEA OR DISCOMFORT. PT EXPRESSED CONCERN HER ABDOMEN APPEARS DISTENDED TO HER. AMBULATION ENCOURAGED. SHE HAS AMBULATED SEVERAL LAPS THIS SHIFT AND AGREES TO WALK AGAIN AFTER EVENING MEAL
--- NOTE | 2020-07-09 18:26 | NUR ---
CALLED DR KING FOR DOSE OF IV CARDIZEM, BUT SHE HAD CALMED DOWN BY THE TIME IT WENT THROUGH. WILL HOLD IN CASE IT JUMPS UP AGAIN. WAS 120-150 FOR APPROX. 7-10 MINUTES AFTER WALK.
--- NOTE | 2020-07-09 19:04 | NUR ---
PATIENT IN BED TALKING ON PHONE. WARM BLANKET GIVEN. CALL LIGHT IN REACH. NO FURTHER NEEDS AT THIS TIME.
--- NOTE | 2020-07-09 19:15 | NUR ---
REPORT RECEIVED FROM FABRIZIO SPARROW, PATIENT ALERT AND ORIENTED RESTING IN BED, STATES NO PAIN OR NEEDS AT THIS TIME, CALL LIGHT IN REACH, WILL CONT TO MONITOR.
--- NOTE | 2020-07-09 20:22 | NUR ---
SCHEDULED MEDICATIONS ADMINISTERED. PT REQUESTS PRN MEDICATIONS FOR PAIN, HEARTBURN. NIO COMPLETE, DISCUSSED W PHARMACIST.
--- NOTE | 2020-07-09 20:49 | NUR ---
PRN MEDICATIONS ADMINISTERED. DR KING IN ROOM TO CONSULT WITH PT RE: MEDICATIONS, PLAN OF CARE. ALL QUESTIONS ANSWERED. IV FLUSHED, WNL. ASSESSMENT COMPLETE, VS COMPLETE. WATER REFRESHED. CALL LIGHT IN REACH, NO OTHER NEEDS AT THIS TIME.
--- NOTE | 2020-07-09 22:45 | NUR ---
ROUNDED ON PATIENT, RESTING IN BED WITH EYES CLOSED, BREATHING EVEN AND UNLABORED, NO APPARENT NEEDS AT THIS TIME. CALL LIGHT IN REACH.
--- NOTE | 2020-07-09 23:56 | NUR ---
CALL LIGHT ANSWERED, PT REPOSITIONED IN BED, I/O'S COMPLETE. CALL LIGHT IN REACH, NO OTHER NEEDS AT THIS TIME.
--- NOTE | 2020-07-10 01:00 | NUR ---
CALL LIGHT ON. pt REQUESTED PRN PAIN MEDICATION. REPORTED "I THINK IT MIGHT BE ALL THESE CORDS" ADJUSTED CORDS AND PROVIDED FRESH UNDERWEAR. DISCUSSED PAIN MANAGEMENT WILL BRING MEDICATION SOON IT IS DUE, pt REFUSED ICE PACK. CALL LIGHT WITHIN REACH.
--- NOTE | 2020-07-10 02:15 | NUR ---
PRN PAIN MEDICATION ADMINISTERED FOR 6/10 PAIN. PT UP TO BR TO VOID, STATES NO OTHER NEEDS AT THIS TIME, CALL LIGHT IN REACH, WILL CONT TO MONITOR.
--- NOTE | 2020-07-10 04:10 | NUR ---
ROUNDED ON PATIENT, PT AWAKE AND ALERT IN BED. STATES SHE IS FEELING NAUSEATED, CRACKERS AND 7UP PROVIDED PER REQUEST. ASSESSMENT COMPLETE. PT STATES NO OTHER NEEDS AT THIS TIME, CALL LIGHTIN REACH
--- NOTE | 2020-07-10 05:45 | NUR ---
SCHEDULED MEDICATIONS ADMINISTERED, VITALS AND I/O'S COMPLETE. PT STATES NO PAIN OR NAUSEA AT THIS TIME. CALL LIGHT IN REACH, NO OTHER NEEDS.
--- NOTE | 2020-07-10 08:11 | NUR ---
REPORT RECIEVED. PT IN BED AWAKE. TELE IN PLACE. HR 78. CALL LIGHT IN REACH. DENIES NEEDS.
--- NOTE | 2020-07-10 09:14 | NUR ---
Called Nicole Calvin at [facility] to check it Atilio appt could be a tele health appt. as she will not dc today. She has not had a BM for 9 days. [employer] was unable to contact manager of medical. She will message and ask them to return my call.
--- NOTE | 2020-07-10 09:20 | NUR ---
DR JACKSON CALLED REGAURDING PT WITH NO BOWEL MOVEMENT SINCE 05/30 AND NEED FOR FOR PAIN MEDICATION FOR BREAKTHROUGH PAIN. NEW ORDERS RECIEVED IN OCT.
--- NOTE | 2020-07-10 10:17 | NUR ---
BOWEL MEDS ADMINSTED. PT ALREADY AMBULATED HALLS ONCE AND PLANS TO DO ANTHER SOON. ENCOURAGED TO DRINK PLENTY OF WATER WITH BOWEL MEDS TO HELP WITH BM.
--- NOTE | 2020-07-10 10:47 | NUR ---
PATIENT IN BED RESTING, IND IN ROOM. CALL LIGHT IN REACH. NO FURTHER NEEDS AT THIS TIME.
--- NOTE | 2020-07-10 10:50 | NUR ---
Spoke with Sintia, she is wanting to go home. Updated I have a call into [employer] and have requested a return call, also I requested the provider call her for a telehealth call. She states this was set up, the office never called her at the scheduled time. She called back and was informed they don't do telehealth as Medicare won't pay for the visit. I also let her know, Dr. Landrum requested they call him with her results if they cannot provide a telehealth call.
[2020-07-10] MEDS ORDERED: DILTIAZEM 24HR120 MG PO (12:37)
[2020-07-10] MEDS ORDERED: AMIODARONE HCL200 MG PO (12:40)
[2020-07-10] MEDS ORDERED: ASPIRIN81 MG PO (12:49)
[2020-07-10] MEDS ORDERED: COLACE100 MG PO ×2 (13:10→13:50)
--- NOTE | 2020-07-10 13:20 | NUR ---
IV TAKEN OUT UPON RN REQUEST. CATH INTACT AND LOOKED GOOD, RN NOTIFIED.
--- NOTE | 2020-07-10 13:44 | NUR ---
PT SITTING IN CHAIR VISITING WTIH HER MIRTA. PT IS ANXIOUS FOR DC, HOPING TO DC TODAY. PT ALWAYS PLEASANT, REQUESTED PRAYER. WILL FOLLOW NEEDED
--- NOTE | 2020-07-10 13:47 | NUR ---
MADE A FOLLOW UP APPT WITH PCP,AND DR JACKSON AND SENT A REFERRAL FOR CARDIOLOGY WITH DR MIX. SHE WILL SEE HIM ON July AT 1:[address] TURNER OFFICE TO GET A FOLLOW UP APPT FOR ANEMIA AND WAS TOLD BY DR KING THAT DISCHARGE PLANNING WAS WORKING ON THIS. TALKED WITH HORACIO AND SHE GOT AHOLD OF DR JACKSON TO VERIFY. HORACIO TEXT DR JACKSON AND IS WAITING FOR RESPONSE.
[2020-07-10] MEDS ORDERED: MIRALAX119 GM PO (13:49)
--- NOTE | 2020-07-10 14:15 | NUR ---
DISCHARE INSTRUCTIONS PROVIDED. PHARMACY DISCUSSED MEDICAIOTNS. PT HAS NO QUESTIONS.
--- NOTE | 2020-07-10 15:58 | NUR ---
Received a call from Pauline at Nicole Calvin's [employer] office. Nicole will call Sintia at home tonaltaf. She is awaiting records from [facility]. 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
--- NOTE | 2020-07-11 07:54 | DS ---
[facility] [address] [place], [place] [address] Signed ADMISSION DATE: 07/01/2020 DISCHARGE DATE: 07/10/2020 FINAL DIAGNOSIS: Distal small-bowel obstruction from multiple submucosal fibrous rings, most likely related to NSAID use. PROCEDURE: Small bowel resection x2. HISTORY OF PRESENT ILLNESS: Sintia is a 74-year-old female, who has been out of our hospital multiple times over the last year. She has now had five or six CT scans of the abdomen and pelvis. She had upper and lower endoscopy two years ago and had it again in March of this year. Again, nothing particularly concerning other than some very minimal diverticulosis. Her small bowel follow-through had been unremarkable. She had been sent for a capsule endoscopy. Unfortunately capsule would not pass through the terminal ileum. Consequently, she ended up back in the hospital. She was admitted, hydrated and electrolytes corrected. HOSPITAL COURSE: Sintia was admitted as above and we waited several days with multiple abdominal x-rays to watch the capsule endoscopy. It was in the right mid pelvis and it never moved. She also had some other foreign body in the small bowel on the CT scan. We were not sure exactly the etiology of that. Then, she went into atrial fibrillation and we had our Internal Medicine Service following her as well. Her heart rate would jump from the 60s clear into the 140s despite the metoprolol and diltiazem. Amiodarone has been ordered and it is unclear if it has been given last night or this morning. Nevertheless, Sintia is back in sinus rhythm. She is anemic of course and we did not transfuse her any blood on this occasion. She went to surgery on 07/04/2020 for laparotomy with small-bowel resection x2. We found the capsule endoscopy and just distal to that about 8 inches was this tubular structure almost like a straw about 2 cm in length and it had been on itself a bit and that was the etiology on the CT scan. She had several of these submucosal fibrous bands most likely associated with the previous NSAID use. However, she has currently been using tramadol for her chronic back pain. Her intraop and postop course really had been uncomplicated other than the paroxysmal atrial fibrillation. At this point, she is on a regular diet. She has had gas now for several days, but no bowel movement. She does not particularly feel constipated. We put her back on MiraLAX and Colace this morning. She has taken some milk of magnesia as well. We did offer her suppository and enema that she has declined currently. She is feeling well and was a little anxious to go home, but she understands that her heart has been an issue and our Internal Medicine service has been working with her closely in that Electronically Signed By: EZEQUIEL JACKSON MD 07/11/20 0754 PATIENT NAME: SINTIA GENTILE DISCHARGE SUMMARY DATE OF : 43 REPORT #: [id number] PHYSICIAN: EZEQUIEL JACKSON MD PCP: FARIDEH SEGUNDO PA-C REPORT IS CONFIDENTIAL AND NOT TO BE RELEASED WITHOUT AUTHORIZATION [facility] [address] [place] [id number] Signed regard. Today on exam, her abdomen is completely flat, soft, nontender. The incision is healing quite well without any local signs or symptoms of infection. DISCHARGE PLANS AND MEDICATIONS: Sintia already has her tramadol at home that she uses for chronic back pain and she is welcome to use that for pain control. If she needs to supplement that with Tylenol, it is fine. I have discussed with her the idea of ibuprofen, Aleve, meloxicam, and so forth contributing to her bowel obstruction and she should avoid those drugs for any significant amount. If she took it once in a while, it is probably fine. We are going to have her take the MiraLAX 17 g p.o. b.i.d. in 8 to 12 ounces of liquid and she already has that at home. We have also written for Colace 100 mg p.o. b.i.d. and she can take that for a couple of weeks, so we dispense #30 tablets with no refills. We are going to leave the other medications up to our hospitalist service, particularly with respect to the diltiazem and the amiodarone and her other medications such as her amlodipine and her lisinopril. She will receive those instructions from our hospitalist service. Otherwise, she will follow a regular diet as usual. She can walk up and down stairs and perform her activities of daily living as she has been doing here. She wants to use some ice over the incision, it is perfectly fine. We are going to remove all her martin today and I will have her back in my office in about a week to 10 days for surgical followup. Her is already a patient of Dr. Lydia Larson. Consequently our hospitalist service wants Sintia to see Dr. Larson in the weeks ahead for this new onset paroxysmal atrial fibrillation. She did undergo an echo while here in the hospital and she had one done earlier this year in August, both at [facility]. She is going to follow up with her video game producer, Dr. Enmanuel Abarca in the next few weeks for the ongoing anemia evaluation as well as followup on the capsule endoscopy and she can certainly follow up with her primary care provider as well. She has expressed understanding and agrees with the above plan. We are going to leave the final discharge at a later day or tomorrow per our Internal Medicine Service. She has expressed understanding and agrees with the above plan. Ezequiel Jackson MD ALB/MODL /[id number] cc: Enmanuel Abarca MD Electronically Signed By: EZEQUIEL JACKSON MD 07/11/20 0754 PATIENT NAME: SINTIA GENTILE DISCHARGE SUMMARY DATE OF : 43 REPORT #: [id number] PHYSICIAN: EZEQUIEL JACKSON MD PCP: FARIDEH SEGUNDO PA-C REPORT IS CONFIDENTIAL AND NOT TO BE RELEASED WITHOUT AUTHORIZATION [facility] [address] [place], [place] [address] Signed MD Farideh Zhu PA-C Copies: Enmanuel Abarca MD, MERSHED MD NORRIS, CHLOE K PA-C ~ Electronically Signed By: EZEQUIEL JACKSON MD 07/11/20 0754 PATIENT NAME: SINTIA GENTILE DISCHARGE SUMMARY DATE OF : 43 REPORT #: [id number] PHYSICIAN: EZEQUIEL JACKSON MD PCP: FARIDEH SEGUNDO PA-C REPORT IS CONFIDENTIAL AND NOT TO BE RELEASED WITHOUT AUTHORIZATION
--- NOTE | 2020-07-12 13:54 | PATH ---
[facility] [address] [place], [place] [address] Signed SPECIMEN(S): A TERMINAL ILEUM SPECIMEN(S): B ADDITIONAL PROXIMAL ILEUM SPECIMEN(S): C ENDOSCOPIC CAPSULE FROM ILEUM SPECIMEN(S): D ANASTOMOTIC ENDS SPECIMEN SOURCE: A. TERMINAL ILEUM B. ADDITIONAL PROXIMAL ILEUM C. ENDOSCOPIC CAPSULE FROM ILEUM D. ANASTOMOTIC ENDS CLINICAL HISTORY: Small bowel obstruction. Stitch handy area of concern. Long silk stitch handy distal end, short handy area of concern, double stitch handy 2nd area of concern. C. Ileum per [facility] 06/29/20 FINAL PATHOLOGIC DIAGNOSIS: A. Terminal ileum, segmental resection: - Small-bowel mucosa with no significant pathologic changes. B. Ileum, "additional proximal", segmental resection: - Small-bowel mucosa with focal abscess formation, suggestive of ruptured diverticulum. C. Designated "endoscopic capsule": - Intact mobile paramedical examiner consistent with endoscopic capsule; gross diagnosis only. D. Small bowel, designated anastomotic ends, excision: - Small-bowel mucosa with focal serosal fibrosis. BRP:[facility]:C2NR MICROSCOPIC EXAMINATION: Histologic sections of all submitted blocks are examined by light microscopy. These findings, together with the gross examination, support the pathologic diagnosis. GROSS DESCRIPTION: Four specimens are received in four containers, labeled "SL." A. The specimen, labeled "SL, A," and designated on the requisition "terminal ileum, small bowel obstruction, stitch handy area of concern," is received in formalin and consists of a previously opened, 3.1 cm long, 2.2 cm diameter bowel segment with attached adipose tissue up to 1.4 cm wide. One end is closed by a 2.6 cm long staple line which is PATIENT NAME: JAMES GENTILE PATHOLOGY DATE OF : 43 REPORT #: [id number] PHYSICIAN: SUNITHA PATHOLOGY PCP: KATHIE SEGUNDO PA-C REPORT IS CONFIDENTIAL AND NOT TO BE RELEASED WITHOUT AUTHORIZATION [facility] [address] [place], [place] [address] Signed removed and the underlying tissue is inked orange. The opposing end is closed by a 1.7 cm long staple line edges removed and the underlying is a blue. On the serosal surface, 0.8 cm from the blue inked staple line, 1.6 cm from the orange inked staple line is a black suture that is inked black. The suture is not associated with a mass/lesion. The bowel serosa is morrison, smooth, glistening. The bowel mucosa is morrison with usual folds and without a discrete mass/lesion. The attached adipose tissue is palpated for lymph nodes and no abnormally large lymph grossly identified. Also in the container is a yellow synthetic, paper-like, 2.3 cm long, 1.4 cm in diameter tubal structure. Golf Sales Manager sections are submitted as follows: (A1) Sutured area (A2) Staple line margins to sutured area (A3) Remaining mucosa B. The specimen, labeled "SL, B," and designated on the requisition "additional proximal piece of ileum; long silk stitch handy distal end, short handy area of concern, double stitch handy second area of concern," is received in formalin and consists of a previously partially opened, 14.7 cm long, 2.2 cm in diameter bowel segment with attached adipose tissue up to 5.1 cm. The bowel segment is oriented with a long stitch at the distal end. The distal end is closed by a 3.4 cm long staple line which is removed and the underlying tissue is inked orange. The proximal end is closed by a 2.2 cm long staple line which is removed and the underlying tissue is inked blue. The bowel serosa has 2 sutures. The first is 1.4 cm from the proximal staple line, inked red, and does not grossly appear to be associated with a lesion. The second is 6.1 cm from proximal staple line, and inked black, and does not grossly appear to be associated with the lesion. The bowel serosa is morrison, smooth, glistening without any areas of grossly identifiable mass/lesions. The bowel mucosa is morrison with usual folds and 2 areas of 0.2 cm in greatest dimension red-black discoloration. The first is adjacent to the black inked suture line, 6.1 cm from the proximal margin, and 8.6 cm from the distal margin. The second is 3.5 cm from the distal margin and 11.2 cm from the proximal margin. The areas of discoloration do not grossly appear to involve possibly mucosa. An additional discrete mass/lesion is not grossly identified. PATIENT NAME: JAMES GENTILE PATHOLOGY DATE OF : 43 REPORT #: [id number] PHYSICIAN: SUNITHA RAY PCP: KATHIE SEGUNDO PA-C REPORT IS CONFIDENTIAL AND NOT TO BE RELEASED WITHOUT AUTHORIZATION [address] [address] Signed The attached adipose tissue is palpated for lymph nodes and one [id number], 0.7 cm lymph node candidate is found. Represented sections are submitted as follows: (B1) Red inked suture (B2) Black inked suture and area of mucosal discoloration adjacent to it (B3) Second area of mucosal discoloration (B4) Remaining mucosa and lymph node candidate C. The specimen, labeled "SL, C," and designated on the requisition "endoscopic capsule," is received in formalin and consists of a 2.5 cm long, 1.2 cm in diameter white to clear, hard, synthetic capsule that appears to have a 0.2 cm in diameter camera lined beneath the clear surface. The capsule is inscribed with "PillCam, SB 3". Gross only. D. The specimen, labeled "SL, D," and designated on the requisition "anastomotic ends," is received in formalin and consists of one, donut shaped, unoriented, 0.9 cm long, up to 2.5 cm in diameter bowel segment with multiple black sutures. Additionally the bowel segment has a 1.5 cm long staple line running longitudinally down the bowel. The staple line is removed and the underlying tissue is inked blue. The bowel also has a longitudinal, 1.5 cm long staple line consistent with a side to side anastomotic site. The possible anastomosis is without gross evidence of discoloration or leakage. The bowel serosa is morrison, smooth, glistening. The bowel mucosa is morrison with usual folds and without a discrete mass/lesion. Golf Sales Manager sections are submitted in one cassette (D1). AI (under the direct supervision of a pathologist) Per request by Dr. Lee, additional sections from the areas of suspicion in part A and part B are submitted as follows: A4-A6 remainder of the bowel segment B5-B6 bowel from black inked suture B7-B8 bowel from red inked suture AI 07/10/20 6290 The Gross Description was prepared using a voice recognition system. The report was reviewed for accuracy; however, sound-alike word errors, addition and/or deletions may occur. If there is any question about this report, please contact Client Services. PERFORMING LABORATORY: The technical component was performed by [facility], [address] [place] [address] [place] [address] (Glue Wheel Operator: Lia Hubbard MD; CLIA# [id number]). Professional interpretation was performed by PATIENT NAME: JAMES GENTILE FAMILIA PATHOLOGY DATE OF : 43 REPORT #: [id number] PHYSICIAN: SUNITHA RAY PCP: KATHIE SEGUNDO PA-C REPORT IS CONFIDENTIAL AND NOT TO BE RELEASED WITHOUT AUTHORIZATION [facility] [address] [place] [place] [address] Signed [facility], [facility], [address] [place] [phone] (Glue Wheel Operator: Hipolito Hurd M.D.; CLIA#: [id number]). Diagnostician: Jin Lee MD Pathologist Electronically Signed 07/12/2020 Copies: ~ PATIENT NAME: JAMES GENTILE PATHOLOGY DATE OF : 43 REPORT #: [id number] PHYSICIAN: SUNITHA RAY PCP: KATHIE SEGUNDO PA-C REPORT IS CONFIDENTIAL AND NOT TO BE RELEASED WITHOUT AUTHORIZATION
== END 2020-07-10 14:15 | disposition home or self-care (01) | DRG 331 ==
LOC: ED 01:59 → MS 02:01
PROVIDERS: ADMIT Colon & Rectal Surgery; ATTEND Colon & Rectal Surgery
PROC: 0DBB0ZZ Excision of Ileum, Open Approach (ICD-10-PCS; principal; 2020-07-04 11:00)
DX: K56.690 Other partial intestinal obstruction (principal); Z20.828 Contact with and (suspected) exposure to other viral communicable diseases; I10 Essential (primary) hypertension; K21.9 Gastro-esophageal reflux disease without esophagitis; E03.9 Hypothyroidism, unspecified; M13.0 Polyarthritis, unspecified; I35.1 Nonrheumatic aortic (valve) insufficiency; M54.9 Dorsalgia, unspecified; G89.29 Other chronic pain; D64.9 Anemia, unspecified; R13.19 Other dysphagia; E87.6 Hypokalemia; E83.39 Other disorders of phosphorus metabolism; E83.42 Hypomagnesemia; I48.0 Paroxysmal atrial fibrillation; T39.395A Adverse effect of other nonsteroidal anti-inflammatory drugs [NSAID], initial encounter; T18.3XXA Foreign body in small intestine, initial encounter; Y73.0 Diagnostic and monitoring gastroenterology and urology devices associated with adverse incidents; Z79.890 Hormone replacement therapy; Z79.891 Long term (current) use of opiate analgesic; Z87.440 Personal history of urinary (tract) infections; Z79.899 Other long term (current) drug therapy
CPT/HCPCS: 00790; 36415; 43752; 71045; 74018; 74177; 80048; 80053; 81001; 83690; 83735; 84100; 84134; 84439; 84443; 85025; 86850; 86900; 86901; 88300; 88305; 88307; 93005; 93010; 93306; 97161; 99285-25; C9113; C9803; J0690; J1100; J1170; J1650; J1885; J2001; J2250; J2405; J2550; J2704; J2765; J3010; J3475; J3480; J7040; J7060; J7121; Q9967; U0003

== ENCOUNTER 2023-10-03 13:51 | Emergency (ER) | payer MEDICARE, OTHER ==
[~2023-10-03] VITALS: Ht 157.5 cm; Wt 56.3 kg
[~2023-10-03 13:51] MED LIST changes: +AMIODARONE HCL200 MG PO; +ASPIRIN81 MG PO; +COLACE100 MG PO; +DILTIAZEM 24HR120 MG PO; +HYDROCODON-ACE1 EA10 PO; +MIRALAX119 GM PO; +SYNTHROID88 MCG PO
--- OUTSIDE RECORDS SUMMARY | 2023-10-03 13:54 | XMS ---
PreManage Notification: JAMES GENTILE Security Account Associate Events No recent Security Events currently on file [facility] There are no care providers on record at this time. Alana has no Care Guidelines for this patient. Shanda VISIT COUNT (12 MO.) 2 JUANIS Ruiz TOTAL 2 NOTE: Visits indicate total known visits. ED/UCC VISIT TRACKING (12 MO.) 10/03/2023 13:52 JUANIS Rousseau [place] TYPE: Emergency COMPLAINT: - POSSIBLE INFECTIONS 02/01/2023 13:21 JUANIS Rousseau [place] TYPE: Emergency COMPLAINT: - FALL DIAGNOSES: - Essential (primary) hypertension - FDC (current) use of aspirin - Multiple fractures of ribs, left side, initial encounter for closed fracture - Other studio hand (current) drug therapy - Unspecified fall, initial encounter INPATIENT VISIT TRACKING (12 MO.) No inpatient visits to display in this time frame [email or web address]
[2023-10-03 16:01] LABS: BASOPHILS 0.6 % (0-2); EOSINOPHILS 0.1 % (0-6); HEMATOCRIT 43.4 % (35.0-50.0); HEMOGLOBIN 13.8 g/dL (12.0-18.0); LYMPHOCYTES 7.5 % (24-44); MCH 29.1 (27-36); MCHC 31.8 g/dl (30-36); MCV 91.4 fl (81-99); NEUTROPHILS 86.8 % (39-80); PLATELET COUNT 326 K/uL (140-440); RBC 4.75 M/ul (4.3-5.7); RDW 14.2 (10.5-15.0)
[2023-10-03 16:17] LABS: ALBUMIN 3.5 g/dL (3.4-5.0); ALBUMIN/GLOBULIN RATIO 0.92 (1.1-2.4); BILIRUBIN, TOTAL 0.3 ng/dL (0.2-1.0); CALCIUM 9.6 mg/dL (8.5-10.1); CREATININE, SERUM 1.12 mg/dL (0.55-1.02); PROTEIN, TOTAL 7.3 g/dL (6.4-8.2)
[2023-10-03 16:25] LABS: BILIRUBIN, URINE NEGATIVE (negative); BLOOD/HGB, URINE NEGATIVE (Negative); KETONE, URINE NEGATIVE (Negative); LEUK ESTERASE, URINE SMALL (negative); NITRITE, URINE NEGATIVE (negative)
[2023-10-03 16:35] LABS: BACTERIA, URINE 1+ /hpf (negative); CRYSTALS, URINE CALCIUM OXALATE 1+ (0-1+); EPITHELIAL CELLS, URINE SQUAMOUS 2+ /lpf (0-1+); REFLEX CULTURE, URINE Yes (No)
[2023-10-03] MEDS ORDERED: SODIUM CHLORIDE 0.9% 500 ML IV PRN (16:45)
[2023-10-03] MEDS ORDERED: CEFTRIAXONE/SODIUM CHLORIDE 2 GM/100 ML PIGGYBACK IV ONE (18:45)
[2023-10-03] MEDS ORDERED: CEFDINIR300 MG PO (19:24)
[2023-10-03 20:21] VITALS: BP 182/74
== END 2023-10-03 20:21 | disposition home or self-care (01) ==
LOC: ED 13:51
PROVIDERS: Emergency Medicine
DX: N39.0 Urinary tract infection, site not specified (principal); D72.829 Elevated white blood cell count, unspecified; J98.11 Atelectasis; I10 Essential (primary) hypertension; Z79.82 Long term (current) use of aspirin; Z79.899 Other long term (current) drug therapy; Z79.890 Hormone replacement therapy
CPT/HCPCS: 36415; 71045; 74177; 80053; 81001; 83690; 85025; J0696; J7040; Q9967